=== PATIENT | female | born 1950 | race Caucasian/White ===

== ENCOUNTER 2018-07-29 07:43 | Outpatient (CLI) | payer BC, MEDICARE, OTHER, SELFPAY ==
[2018-07-31 13:48] LABS: Cat Epithelium IgE 3.51 kU/L; Cocklebur IgE <0.35 kU/L; Cockroach IgE <0.35 kU/L; Cottonwood IgE <0.35 kU/L; Dog Dander IgE <0.35 kU/L; Eastern Sycamore IgE <0.35 kU/L; Fusarium moniliforme, IgE <0.35 kU/L (<0.35); Giant Ragweed IgE 0.47 kU/L; House Dust/Greer Lab, IgE <0.35 kU/L; Lamb's Quarter IgE <0.35 kU/L; Penicillium chrysogenum IgE <0.35 kU/L; Red Sorrel IgE <0.35 kU/L; Short Ragweed IgE 0.79 kU/L; Stemphyllium IgE 0.51 kU/L
[2018-07-31 17:01] LABS: Epicoccum purpurascens IgE <0.35 kU/L; Wormwood IgE <0.35 kU/L
[2018-08-04 02:33] LABS: CLASS 0; Cedar Red IgE <0.10 kU/L (<0.35); Rhodotorula IgE <0.35 kU/L (<0.35)
== END 2018-07-29 08:03 ==
PROVIDERS: PCP Family Medicine; Visit Provider Otolaryngology Otolaryngology/Facial Plastic Surgery
DX: J32.9 Chronic sinusitis, unspecified (principal); Z01.82 Encounter for allergy testing
CPT/HCPCS: 36415; 86003

== ENCOUNTER 2019-01-22 07:56 | Emergency (ER) | payer BC, MEDICARE, OTHER, SELFPAY ==
[2019-01-22] VITALS (24 sets, daily range): BP systolic 109–181; BP diastolic 32–104; PULSE 77–86; RESP 14–23; TEMP 36.7; O2SAT 95–100
--- NOTE | 2019-01-22 08:26 | DI.US_ITS ---
SYMPTOM/DIAGNOSIS: RLE PAIN, DYSPNEA, SWELLING DUPLEX VENOUS ULTRASOUND RIGHT LOWER EXTREMITY: The study was carried out according to the usual protocol. The superficial, femoral, popliteal and proximal trifurcation in the superior portion of the leg are well seen. Good compressibility is noted throughout. Flow is demonstrated and flow augmentation was easily elicited with calf compression. SUMMARY: There is no evidence of DVT.
--- NOTE | 2019-01-22 08:26 | DI.RAD_ITS ---
SYMPTOM/DIAGNOSIS: DYSPNEA PA AND LATERAL CHEST: The heart is normal in size. The lungs are clear. The mediastinal structures and pleura appear intact. CONCLUSION: Normal chest.
[2019-01-22] MEDS: Albuterol 2.5 MG/3 ML INH SOLN VIAL UPD (08:42)
[2019-01-22 08:43] LABS: Anion Gap 10.1 mmol/L (3-11); BUN 25 mg/dL (7-18); CO2 27.9 mmol/L (21.0-32.0); CREATININE 1.21 mg/dL (0.55-1.02); Calcium 8.6 mg/dL (8.5-10.1); Chloride 103 mmol/L (98-107); Estimated GFR 44.38 (mL/min/1.73m2); Glucose 134 mg/dL (70-100); Potassium 3.5 mmol/L (3.5-5.1); Sodium 141 mmol/L (136-145)
--- NOTE | 2019-01-22 15:43 | ED.GENADUL_ITS ---
Discharge Plan Disposition Patient Disposition: HOME Condition: Stable Discharge Details Chief Complaint: SOB Clinical Impression: Superficial thrombophlebitis Primary Care Provider: Leroy Case ED Provider: Jim Nichols Home Meds and New Rx's Prescriptions: New ibuprofen 600 mg tablet 600 mg PO TID Qty: 20 RF: 0 No Action pramipexole 1 mg Tablet 1 mg PO BID RF: 0 atorvastatin 20 mg Tablet 20 mg PO DAILY RF: 0 torsemide 20 mg Tablet 20 mg PO DAILY RF: 0 albuterol sulfate 2.5 mg /3 mL (0.083 %) Solution For Nebulization 2.5 mg INHALATION TID PRN PRNRF: 0 aspirin 325 mg Tablet 325 mg PO DAILY RF: 0 rizatriptan 10 mg Tablet 10 mg PO ONCE RF: 0 clonazepam 1 mg Tablet 1 mg PO DAILY PRNRF: 0 venlafaxine 150 mg Capsule,Extended Release 24hr 150 mg PO DAILY RF: 0 amlodipine 2.5 mg Tablet 2.5 mg PO DAILY RF: 0 omeprazole 40 mg Capsule,Delayed Release(Dr/Ec) 40 mg PO BID RF: 0 spironolactone 25 mg Tablet 25 mg PO DAILY RF: 0 ferrous sulfate [Iron (ferrous sulfate)] 325 mg (65 mg iron) Tablet 325 mg PO DAILY RF: 0 metformin 1,000 mg Tablet 1,000 mg PO DAILY RF: 0 nystatin 100,000 unit/gram Cream 1 applic TOPICAL BID RF: 0 nitroglycerin [Nitrostat] 0.4 mg Tablet, Sublingual 0.4 mg SUBLINGUAL Q5-15M PRNRF: 0 mupirocin calcium 2 % Cream 1 applic TOPICAL BID RF: 0 montelukast 10 mg Tablet 10 mg PO DAILY RF: 0 ergocalciferol (vitamin D2) 50,000 unit Capsule 50,000 unit PO QWEEK RF: 0 hydroxychloroquine 200 mg Tablet 400 mg PO DAILY RF: 0 ibuprofen 600 mg Tablet 600 mg PO BID PRNRF: 0 albuterol sulfate [ProAir HFA] 90 mcg/actuation Hfa Aerosol Inhaler 2 puff INHALATION QID PRNRF: 0 Humulin N NPH Insulin KwikPen 100 unit/mL (3 mL) Insulin Pen SUBCUT .SLIDING SCALE RF: 0 Novolog Flexpen U-100 Insulin 100 unit/mL Insulin Pen 14 unit SUBCUT DAILY RF: 0 topiramate [Topamax] 50 mg Tablet 150 mg PO HS RF: 0 chlorhexidine gluconate 0.12 % Mouthwash 15 ml BUCCAL BID RF: 0 Symbicort 160-4.5 mcg/actuation Hfa Aerosol Inhaler 2 puff INHALATION BID RF: 0 Lantus Solostar U-100 Insulin 100 unit/mL (3 mL) Insulin Pen 45 unit SUBCUT DAILY RF: 0 Victoza 3-Mal 0.6 mg/0.1 mL (18 mg/3 mL) Pen Injector 1.8 mg subcut DAILY RF: 0 Nucala 100 mg Recon Soln 100 mg SUBCUT Q4W RF: 0 Discharge Instructions Additional Instructions: 1. Drink plenty of fluids. 2. Continue all medications as prescribed. 3. Acetaminophen 1000mg every 4 hours (up to 5 time a day) and/or ibuprofen 600mg every 6 hours as needed for fever or pain. 4. Warm compresses to sore area frequently. Return to the Emergency Department (ED) if your condition worsens, does not improve as expected, or for ANY other concerns. Specifically, return if you have new or uncontrolled pain, worsening fever, difficulty breathing, vomiting, or are unable to drink fluids. Discharge Data Discharge Date/Time-TO BE ENTERED AT DEPARTURE: 01/22/19 10:45 Medical Decision Making 68-year-old with multiple medical problems including recent right lower extremity ankle and knee pain presents with worsening posterior right knee pain and associated dyspnea. Nonfocal exam except for tenderness of the proximal right calf which reproduces subjective pain. Right lower extremity DVT study positive for superficial thrombophlebitis.. Chest x-ray negative. Discussed findings with patient was discharged home with plan for OTC analgesia and outpatient follow-up. Pt evaluated immediately prior to discharge with improved symptoms, normal vital signs, and tolerating PO. The patient feels appropriate for discharge home. Discussed clinical/diagnostic findings. Discharged with a clear plan for outpatient follow up. Given usual and customary return instructions prior to discharge. Medical Records Medical records reviewed: Yes I reviewed the patient's medical records. Imaging Data Radiologic Study: Attestation: I personally reviewed and interpreted this imaging study as follows: Imaging: Ultrasound (Right DVT is) My impression: No DVT. Posterior superficial thrombophlebitis. Interpreted independently and contemporaneously by myself. Reviewed radiology report. Radiologist's impression: Same Radiologic Study #2: Attestation: I personally reviewed and interpreted this imaging study as follows: Imaging: X-Ray (Chest x-ray) My impression: No acute cardiopulmonary disease. Interpreted independently and contemporaneously by myself. Reviewed radiology report. Radiologist's impression: Same HPI 68-year-old woman with a history of sciatica, SAH, atypical chest pain, estrogens syndrome, and CKD presents with new right posterior leg pain and mild dyspnea. The patient has had chronic right ankle pain and then right knee pain. She was recently evaluated for her ankle pain and was diagnosed with an old fracture. At the time of her recent evaluation she did not have a conference of the evaluation. Since then, her knee pain has been worsening. This is localized in her proximal calf/inferior popliteal fossa. She otherwise denies any significant lower extremity swelling, erythema, or discoloration. Yesterday evening her pain significantly worsened and was associated with some dyspnea. She denies fever/chills, palpitations, chest pain, abdominal pain, change in bowel habits, urinary symptoms. She has no history of VTE. General Date/Time Provider Initiated Documentation: 01/22/19 08:26 . Related Data Home Medications Medication Instructions Recorded Confirmed albuterol sulfate 2.5 mg INHALATION TID PRN PRN 01/22/19 01/22/19 albuterol sulfate [ProAir HFA] 2 puff INHALATION QID PRN 01/22/19 01/22/19 amlodipine 2.5 mg PO DAILY 01/22/19 01/22/19 aspirin 325 mg PO DAILY 01/22/19 01/22/19 atorvastatin 20 mg PO DAILY 01/22/19 01/22/19 budesonide-formoterol [Symbicort] 2 puff INHALATION BID 01/22/19 01/22/19 chlorhexidine gluconate 15 ml BUCCAL BID 01/22/19 01/22/19 clonazepam 1 mg PO DAILY PRN 01/22/19 01/22/19 ergocalciferol (vitamin D2) 50,000 unit PO QWEEK 01/22/19 01/22/19 ferrous sulfate [Iron (ferrous 325 mg PO DAILY 01/22/19 01/22/19 sulfate)] hydroxychloroquine 400 mg PO DAILY 01/22/19 01/22/19 ibuprofen 600 mg PO BID PRN 01/22/19 01/22/19 ibuprofen 600 mg PO TID #20 tab 01/22/19 insulin NPH isoph U-100 human unit SUBCUT .SLIDING SCALE 01/22/19 [Humulin N NPH Insulin KwikPen] insulin aspart U-100 [Novolog 14 unit SUBCUT DAILY 01/22/19 01/22/19 Flexpen U-100 Insulin] insulin glargine [Lantus Solostar 45 unit SUBCUT DAILY 01/22/19 01/22/19 U-100 Insulin] liraglutide [Victoza 3-Mal] 1.8 mg SUBCUT DAILY 01/22/19 01/22/19 mepolizumab [Nucala] 100 mg SUBCUT Q4W 01/22/19 01/22/19 metformin 1,000 mg PO DAILY 01/22/19 01/22/19 montelukast 10 mg PO DAILY 01/22/19 01/22/19 mupirocin calcium 1 applic TOPICAL BID 01/22/19 01/22/19 nitroglycerin [Nitrostat] 0.4 mg SUBLINGUAL Q5-15M PRN 01/22/19 01/22/19 nystatin 1 applic TOPICAL BID 01/22/19 01/22/19 omeprazole 40 mg PO BID 01/22/19 01/22/19 pramipexole 1 mg PO BID 01/22/19 01/22/19 rizatriptan 10 mg PO ONCE 01/22/19 01/22/19 spironolactone 25 mg PO DAILY 01/22/19 01/22/19 topiramate [Topamax] 150 mg PO HS 01/22/19 01/22/19 torsemide 20 mg PO DAILY 01/22/19 01/22/19 venlafaxine 150 mg PO DAILY 01/22/19 01/22/19 Previous Rx's Medication Instructions Recorded ibuprofen 600 mg PO TID #20 tab 01/22/19 Allergies Allergy/AdvReac Type Severity Reaction Status Date / Time hydrocodone [From Lortab] AdvReac Unknown abd Unverified 01/22/19 09:26 pain/addiction zolpidem [From Ambien] AdvReac Unknown amnesia/strange Unverified 01/22/19 09:26 behavior melatonin AdvReac hallucinati Unverified 01/22/19 09:26 ons General Stated Complaint: SOB KAYCE: 2 Review of Systems Review of Systems All systems are reviewed and are unremarkable except as noted in HPI and below: CONSTITUTIONAL: no fevers/chills, no weakness or change in appetite EYES: no change in vision HEENT: no throat pain or difficulty swallowing; no neck pain CARDIOVASCULAR: no chest pain, palpitations, leg swelling, or diaphoresis RESPIRATORY: no cough, wheezing. mild dyspnea, now improving GASTROINTESTINAL: no abdominal pain, melena, nausea/emesis GENITOURINARY: no dysuria, flank pain, MUSCULOSKELETAL: no pack pain, right ankle pain, right knee pain, right proximal calf pain INTEGUMENTARY: no rash, no wounds NEUROLOGIC: no headache, focal weakness, difficulty with speech, numbness PSYCHIATRIC: no confusion, no anxiety HEME: no easy bruising or bleeding ALLERGIC: no urticaria FOR[facility]LY [facility] Medical History Atypical chest pain (Acute) Body mass index greater than 40 (Acute) Cholelithiasis and cholecystitis with obstruction (Acute) Chronic diastolic (congestive) heart failure (Acute) Chronic kidney disease, stage 2 (mild) (Acute) Depressive disorder (Acute) Dizziness (Acute) Dyspnea (Acute) History of subarachnoid hemorrhage (Acute) Hypercholesteremia (Acute) Insomnia (Acute) Intertrigo (Acute) Memory impairment (Acute) Phlebitis of superficial vein of left lower extremity (Acute) Polyp of ascending colon (Acute) Restless leg syndrome (Acute) Right sided sciatica (Acute) Sjogrens syndrome (Acute) Type 2 diabetes mellitus (Acute) Asthma (Chronic) GERD (gastroesophageal reflux disease) (Chronic) Gout (Chronic) Hypertensive disorder (Chronic) Migraine (Chronic) Obstructive sleep apnea (Chronic) Social History Smoking/Tobacco Use Status: Former Tobacco Use Alcohol Intake: never Drug use: Never Substance use type: does not use Do you feel safe at home: Yes Do you feel safe in your relationship?: Yes Exam Narrative Exam Narrative: Nursing note and vital signs have been reviewed and noted. GENERAL: alert, active, no acute distress, well -hydrated, well-nourished HEENT: atraumatic/normocephalic, PERRLA, EOMI, conjunctiva clear, external ears/canals normal, nasal mucosa normal NECK: supple, full range of motion, no mass, normal lymphadenopathy, no thyromegaly CARDIOVASCULAR: RRR, no murmurs, nl pulses, no edema PULMONARY: nl effort, no audible wheezing or stridor, nl breath sounds with no focal deficit. no chest wall tenderness ABDOMEN: soft, non-tender, non-distended, no mass, no organomegaly EXTREMITY: normal muscle tone, all joints with FROM, no deformity; right proximal calf tenderness which reproduces subjective pain. SKIN: no exanthem appreciated NEURO: gross motor exam normal, normal stance and gait PSYCH: alert and oriented, Course Vital Signs Respiratory Rate 17 01/22/19 07:56 Pulse Oximetry 99 01/22/19 07:56 Temperature 98.1 F 01/22/19 10:45 Temperature Source Temporal Artery Scan 01/22/19 10:38 Pulse 78 01/22/19 10:45 Pulse 79 01/22/19 08:47 Respiratory Rate 20 01/22/19 10:45 Respiratory Effort Non-Labored 01/22/19 09:52 Respiratory Depth Normal 01/22/19 09:02 Respiratory Pattern Normal 01/22/19 09:02 Blood Pressure 120/44 L 01/22/19 10:45 Blood Pressure Mean 61 01/22/19 10:16 Blood Pressure Position Supine 01/22/19 08:00 Pulse Oximetry 99 01/22/19 10:45 Oxygen Delivery Method Venti Mask 01/22/19 08:00 Oxygen Flow Rate 0 01/22/19 08:00 Pain Level 7 01/22/19 10:45 Lab/Test Results Lab/Test Results: Laboratory Tests Range/Units 01/22/19 08:20 Sodium (136-145) mmol/L 141 Potassium (3.5-5.1) mmol/L 3.5 Chloride (98-107) mmol/L 103 Carbon Dioxide (21.0-32.0) mmol/L 27.9 Anion Gap (3-11) mmol/L 10.1 BUN (7-18) mg/dL 25 H Creatinine (0.55-1.02) mg/dL 1.21 H Estimated GFR/1.73 m2 (mL/min/1.73m2) 44.38 Glucose (70-100) mg/dL 134 H Calcium (8.5-10.1) mg/dL 8.6
== END 2019-01-22 10:45 | disposition home or self-care (01) ==
PROVIDERS: Emergency Provider Emergency Medicine; PCP Family Medicine
DX: I80.01 Phlebitis and thrombophlebitis of superficial vessels of right lower extremity (principal); R06.00 Dyspnea, unspecified
CPT/HCPCS: 36415; 80048; 94640; 99284; 71046; 93971; J7613

== ENCOUNTER 2023-01-06 08:21 | Outpatient (CLI) | payer MEDICARE, OTHER, SELFPAY ==
--- NOTE | 2023-01-06 08:19 | DI.RAD_ITS ---
Exam(s) XR KNEE LT 3V AP,LAT,GEOVANNA EXAM: XR KNEE LT 3V AP,LAT,GEOVANNA CLINICAL HISTORY: left knee pain. TECHNIQUE: 2D digital imaging was performed. Three views. COMPARISON: CR,DX XR KNEE 3V RT from 02/10/2019 CR XR KNEE RT 3V AP,LAT,GEOVANNA from 01/06/2023 FINDINGS: BONES: No acute fracture is present. No bony destructive lesion is seen. Spurring noted at the fem oral condyles and tibial plateaus. Mild spurring at the patellofemoral joint. JOINTS: The knee is normally aligned. No joint effusion is seen. SOFT TISSUE: Small posterior loose body which may reside within a Boo's cyst. IMPRESSION: Ibde-ol-pcsmjkhb degenerative changes. Posterior soft tissue calcification may lie within a Boo's cyst. DATA REPOSITORY: RADIATION DOSE DELIVERED:
--- NOTE | 2023-01-06 08:19 | DI.RAD_ITS ---
Exam(s) XR KNEE RT 3V AP,LAT,GEOVANNA EXAM: XR KNEE RT 3V AP,LAT,GEOVANNA CLINICAL HISTORY: right knee pain. TECHNIQUE: 2D digital imaging was performed. Three views. COMPARISON: CR,DX XR KNEE 3V RT from 02/10/2019 FINDINGS: BONES: No acute fracture is present. No bony destructive lesion is seen. JOINTS: There is some anterior subluxation of the tibia with respect to the femur which could indicat e an ACL disruption. No joint effusion is seen. Periarticular spurring throughout. Moderate to se parmjit narrowing of the femoral tibial joint spaces. SOFT TISSUE: Normal. IMPRESSION: Tricompartmental degenerative changes. Probable ACL tear. This could be chronic. DATA REPOSITORY: RADIATION DOSE DELIVERED:
== END 2023-01-06 08:22 | disposition home or self-care (01) ==
LOC: DIORS 08:22
PROVIDERS: PCP Family Medicine; Referring Provider Family Medicine; Visit Provider Physician Assistant
DX: M17.11 Unilateral primary osteoarthritis, right knee; M17.12 Unilateral primary osteoarthritis, left knee
CPT/HCPCS: 20610; 73562; 99203; J1040

== ENCOUNTER → 2023-11-24 02:00 | Outpatient (CLI) | payer MEDICARE, OTHER, SELFPAY ==
--- OUTSIDE RECORDS SUMMARY | 2023-11-24 02:03 | XMS_ITS | Continuity of Care Document ---
Author Name Unknown Organization [facility] Address [address] [place] [address] Care Team Providers Care Decorator Consultant Name Role Phone Leroy Case Primary Care Physician [phone] [facility] Date[facility] 07/31/23 - 07/31/23 [facility] [address] [place] [address] Encounter Diagnosis Left shoulder pain(Discharge Diagnosis) - 07/31/23 Discharge Disposition: Home or Self Care Attending Physician: Timi Hinojosa MD Admitting Physician: Timi Hinojosa MD Referring Physician: Timi Hinojosa MD Allergies, Adverse Reactions, Alerts Substance Reaction Severity Status ALMOND Other Moderate Active clindamycin Diarrhoea Severe Active sulfamethoxazole-trimethoprim Nausea Moderate Active zolpidem Unknown Active pilocarpine ophthalmic Unknown Moderate Activ e acetaminophen-hydrocodone Abdominal pain Unknown Active mycophenolate mofetil Unknown Moderate Active melatonin Hallucinations Unknown Active Bactrim Unknown Active Ambien Unknown Active Lortab Unknown Active metFORMIN Unknown Moderate Active Cat Hair Dyspnea Other (See Comments) Severe Active Assessment and Plan Future Appointments Future Scheduled Tests Radiology* MRI Spine Lumbar w/o Contrast 11/13/22 Immunizations Given and Recorded Vaccine Date Status Refusal Reason influenza virus vaccine, live 03/12/21 Recorded influenza virus vaccine, live 07/13/19 Recorded influenza virus vaccine, live 07/10/16 Recorded SARS-CoV-2 (COVID-19) mRNA-1273 vaccine 02/07/21 R ecorded SARS-CoV-2 (COVID-19) mRNA-1273 vaccine 01/15/21 R ecorded SARS-CoV-2 (COVID-19) mRNA-1273 vaccine 12/21/20 R ecorded influenza, unspecified formulation 07/19/20 Record ed influenza, unspecified formulation 1 07/04/19 Wojciech rded influenza, unspecified formulation 07/21/17 Record ed influenza, unspecified formulation 2 08/04/15 Wojciech rded influenza, unspecified formulation 3 08/04/15 Wojciech rded pneumococcal 13-valent conjugate vaccine 12/30/16 Recorded hepatitis B adult vaccine 08/08/16 Recorded hepatitis B adult vaccine 03/06/16 Recorded hepatitis B adult vaccine 01/31/16 Recorded pneumococcal 23-polyvalent vaccine 07/10/16 Record ed zoster vaccine live 12/20/15 Recorded influenza virus vaccine, inactivated 06/28/14 Wojciech rded influenza virus vaccine, inactivated 06/29/13 Wojciech rded influenza virus vaccine, inactivated 10/23/12 Wojciech rded influenza virus vaccine, inactivated 07/16/11 Wojciech rded tetanus/diphth/pertuss (Tdap) adult/adol 01/22/12 Recorded 1Result Comment: Unit: Unknown 2Result Comment: Unit: Unknown 3Result Comment: Unit: Unknown 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: [employer] Medications !-Zofran ODT 4 mg oral tablet, disintegrating 4 mg = 1 tab, Oral, every 6 hr, PRN as needed for nausea/vomiting, # 12 tab, 0 Refill(s), Pharmacy:[facility], 157.4, cm, 02/01/23 10:28:00 EDT, Height/Length Dosing, 95.7, kg, 02/01/23 10:28:00 EDT, Weight Dosing Start Date: 02/01/23 Stop Date: 02/04/23 Status: Ordered acetaminophen 650 mg oral tablet, extended release 1,300 mg = 2 tab, Oral, TID, PRN as needed for pain, not to exceed 6 tablets/da given to her by herrheumatologist., # 100 tab, 1 Refill(s), Pharmacy: [facility], 157.4, cm, 02/01/23 10:28:00 EDT, Height/Length Dosing, 95.7, kg, 02/01/23 10:28:00 EDT, Weight Dosing Start Date: 05/20/23 Status: Ordered albuterol 2.5 mg/3 mL (0.083%) inhalation solution 2.5 mg = 3 mL, NEB, TID, PRN as needed for wheezing, # 810 mL, 4 Refill(s), Pharmacy: [facility], 157, cm, 10/04/22 11:31:00 EST, Height/Length Dosing, 98, kg, 10/04/22 11:31:00 EST, WeightDosing Start Date: 10/09/22 Status: Ordered aspirin 325 mg oral capsule 325 mg = 1 cap, Oral, Daily, # 30 cap, 0 Refill(s) Start Date: 03/14/22 Status: Ordered clonazePAM 0.5 mg oral tablet 0.5 mg = 1 tab, Oral, Daily, PRN other (see comment), Take as needed for 90 days Start Date: 03/21/20 Status: Ordered Compression stockings Compression stockings, 3 pair 20-30MMHGDX:(I80.9), Supply, See instructions, # 1 EA, 0 Refill(s) Start Date: 04/23/22 Status: Ordered cyclobenzaprine 10 mg oral tablet 10 mg = 1 tab, Oral, TID, PRN as needed for spasm, X 10 days, # 30 tab, 0 Refill(s), 08/04/23 1:02:00 PM CDT, Pharmacy: [facility], 154.94, cm, 07/25/23 13:45:00 EDT, Height/Length Dosing, 89.63, kg, 07/25/23 13:45:00 EDT, Weight Dosing Start Date: 07/25/23 Stop Date: 08/04/23 Status: Ordered dexamethasone 0.5 mg/5 mL oral liquid 1 mg = 10 mL, Oral, TID, # 300 mL, 0 Refill(s), Pharmacy: [facility], 157.4, cm, 02/01/2310:28:00 EDT, Height/Length Dosing, 95.7, kg, 02/01/23 10:28:00 EDT, Weight Dosing Start Date: 04/17/23 Stop Date: 04/27/23 Status: Ordered Diabetic shoes Diabetic shoes, NEEDS NEW PAIR OF DIABETIC SHOES DX: E11.9, Supply, See instructions, # 1 EA, 0 Refill(s) Start Date: 04/23/22 Status: Ordered Diflucan 100 mg oral tablet See Instructions, 1 tab one time dose, # 1 tab, 0 Refill(s), Pharmacy: [facility], 157.4,cm, 02/01/23 10:28:00 EDT, Height/Length Dosing, 95.7, kg, 02/01/23 10:28:00 EDT, Weight Dosing Start Date: 05/26/23 Status: Ordered ferrous sulfate 325 mg (65 mg elemental iron) oral delayed release tablet 325 mg = 1 tab, Oral, Daily, # 90 tab, 3 Refill(s), Pharmacy: [facility], 158, cm, 05/31/23 11:18:00 EDT, Height/Length Dosing, 88.45, kg, 05/31/23 11:18:00 EDT, Weight Dosing Start Date: 06/02/23 Status: Ordered FreeStyle Lite Test Strips FreeStyle Lite Test Strips, Use one strip three times daily, Supply, See instructions, # 300 EA, 4 Refill(s), Pharmacy: [facility] Start Date: 02/05/23 Status: Ordered furosemide 40 mg oral tablet 90 tab, 0 Refill(s) Start Date: 11/24/22 Status: Ordered gabapentin 100 mg oral capsule 100 mg = 1 cap, Oral, TID, # 270 cap, 3 Refill(s), Pharmacy: [facility], 158, cm, 05/31/23 11:18:00 EDT, Height/Length Dosing, 88.45, kg, 05/31/23 11:18:00 EDT, Weight Dosing Start Date: 06/02/23 Status: Ordered ibuprofen 800 mg oral tablet 800 mg = 1 tab, Oral, every 8 hr, PRN as needed for pain, # 30 tab, 0 Refill(s), Pharmacy: [facility], 157.4, cm, 02/01/23 10:28:00 EDT, Height/Length Dosing, 95.7, kg, 02/01/23 10:28:00 EDT, Weight Dosing Start Date: 05/20/23 Status: Ordered insulin pen needles 32G 4 mm 1 Refill(s), USE 5 PEN NEEDLES DIRECTED DAILY, Supply, See instructions, # 1 EA, 0 Refill(s) Start Date: 11/24/22 Status: Ordered ipratropium-albuterol CFC free 20 mcg-100 mcg/inh inhalation aerosol 1 puffs, Inhale, QID, # 4 g, 0 Refill(s), Pharmacy: [facility], 157.4, cm, 02/01/23 10:28:00 EDT, Height/Length Dosing, 95.7, kg, 02/01/23 10:28:00 EDT, Weight Dosing Start Date: 02/05/23 Status: Ordered Lantus Solostar Pen 100 units/mL subcutaneous solution See Instructions, inject 30 units daily, 0 Refill(s) Start Date: 03/14/22 Status: Ordered lidocaine 2% mucous membrane solution 0.1 g 5 mL, Topical, TID(AC), 2 Refill(s), make magic mouthwash mix with generic benadryl liquid 100ml and maalox 1:1:1 15ml of mixed solution swish and spit 4x/day, # 100 mL, 2 Refill(s), Pharmacy: [facility], 157.4, cm, 02/01/23 10:28:00 EDT, Height/Length Dosing, 95.7, kg, 02/01/23 10:28:00 EDT, Weight Dosing Start Date: 04/17/23 Status: Ordered lisinopril 20 mg oral tablet 20 mg = 1 tab, Oral, Daily, # 30 tab, 4 Refill(s), Pharmacy: [facility], 157, cm, 10/04/22 11:31:00 EST, Height/Length Dosing, 98, kg, 10/04/22 11:31:00 EST, Weight Dosing Start Date: 11/27/22 Status: Ordered Neupro 2 mg/24 hr transdermal film, extended release 1 patches, Topical, Daily, # 90 patches, 3 Refill(s), Pharmacy: [facility], 158,cm, 05/31/23 11:18:00 EDT, Height/Length Dosing, 88.45, kg, 05/31/23 11:18:00 EDT, Weight Dosing Start Date: 07/16/23 Status: Ordered oxyCODONE 5 mg oral tablet 5 mg = 1 tab, Oral, every 4 hr, PRN as needed for pain, # 12 tab, 0 Refill(s), 07/25/24 1:03:00 PM CDT, Pharmacy: [facility], 154.94, cm, 07/25/23 13:45:00 EDT, Height/Length Dosing, 89.63,kg, 07/25/23 13:45:00 EDT, Weight Dosing Start Date: 07/25/23 Stop Date: 07/25/24 Status: Ordered Plaquenil 200 mg oral tablet 2 Refill(s), TAKE 1 TABLET TWICE A DAY (EYE EXAM AT LEAST ONCE A YEAR WHILE ON THIS MEDICATION), 0 Refill(s) Start Date: 11/24/22 Status: Ordered ProAir HFA 90 mcg/inh inhalation aerosol 1 puffs, Inhale, every 6 hr, PRN as needed for wheezing, # 8.5 g, 6 Refill(s), Pharmacy: [facility], 157.4, cm, 02/01/23 10:28:00 EDT, Height/Length Dosing, 95.7, kg, 02/01/23 10:28:00 EDT,Weight Dosing Start Date: 02/03/23 Status: Ordered ProAir RespiClick 90 mcg/inh inhalation powder 1 EA, INHALE ONE PUFF BY MOUTH EVERY 6 HOURS NEEDED, 0 Refill(s) Start Date: 11/24/22 Status: Ordered rizatriptan 10 mg oral tablet See Instructions, TAKE ONE TABLET BY MOUTH EVERY DAY NEEDED FOR MIGRAINE. MAY REPEAT DOSE EVERY 2 HOURS FOR A MAXIMUM OF 3 TABLETS IN 24 HOURS, # 12 tab, 3 Refill(s), Pharmacy: [facility], 157.4, cm, 02/01/23 10:28:00 EDT, Height/Length Dosing, 95.7, kg, 02/01/23 10:28:00 EDT, Weight Dosing Start Date: 04/14/23 Status: Ordered torsemide 20 mg oral tablet 0 Refill(s) Start Date: 03/13/22 Status: Ordered triamcinolone 0.1% topical cream 1 yonas, Topical, BID, Apply a thin layer to the affected area(s) Start Date: 10/11/21 Status: Ordered Trulicity Pen 3 mg/0.5 mL subcutaneous solution 3 mg = 0.5 mL, Subcutaneous, every week, rotate injection sites, # 2 mL, 0 Refill(s) Start Date: 02/01/23 Status: Ordered venlafaxine 150 mg oral capsule, extended release See Instructions, TAKE ONE CAPSULE BY MOUTH EVERY DAY, # 90 cap, 3 Refill(s), Pharmacy: [facility], 158, cm, 05/31/23 11:18:00 EDT, Height/Length Dosing, 88.45, kg, 05/31/23 11:18:00 EDT, Weight Dosing Start Date: 06/03/23 Status: Ordered venlafaxine 75 mg oral capsule, extended release 75 mg = 1 cap, Oral, Daily, # 90 cap, 3 Refill(s), Pharmacy: [facility], 158, cm, 05/31/23 11:18:00 EDT, Height/Length Dosing, 88.45, kg, 05/31/23 11:18:00 EDT, Weight Dosing Start Date: 06/02/23 Status: Ordered Vitamin B12 5000 mcg oral tablet, disintegrating 5,000 mcg = 1 tab, Oral, Daily, # 100 tab, 0 Refill(s) Start Date: 05/20/23 Status: Ordered Vitamin D3 50,000 intl units oral capsule 1,250 mcg = 1 cap, Oral, every week, # 12 cap, 0 Refill(s) Start Date: 05/20/23 Status: Ordered Problem List Condition Confirmation Course Effective Dates Status Health Status Informant Acute maxillary sinusitis Confirmed Active Asthma Confirmed Active Atypical chest pain Confirmed Active Back pain with right-sided sciatica Confirmed Active Bipolar affective disorder, current episode depression Confirmed Active Blood blister Confirmed Active Body mass index 30+ - obesity Confirmed Active Body mass index 40+ - severely obese Confirmed Active Vaginal yeast infection Confirmed Active Cholelithiasis without obstruction Confirmed Active Chronic diastolic heart failure Confirmed Active Chronic fatigue syndrome Confirmed Active Chronic kidney disease stage 3 Confirmed 12/05/17 Active Chronic kidney disease stage 3A 1 Confirmed 12/07/20 Active Chronic pain syndrome Confirmed 09/18/18 Active Chronic rhinitis Confirmed 08/25/18 Active Chronic sinusitis Confirmed Active Cough Confirmed Active Depressed bipolar I disorder Confirmed Active Depressive disorder Confirmed Active Dizziness Confirmed Active Dysphagia Confirmed Active Dyspnea Confirmed Active Fall at home Confirmed Active Fibromyalgia Confirmed 12/05/17 Active Gastroesophageal reflux disease Confirmed Active Gout Confirmed Active Heart failure with normal ejection fraction Confirmed 12/05/17 Active History of subarachnoid hemorrhage Confirmed Active Hypercholesterolemia Confirmed Active Hyperparathyroidism 2 Confirmed 12/07/20 Active Hypertensive disorder Confirmed Active Sacroiliitis Confirmed Active Intertrigo Confirmed Active Keratoconjunctivitis sicca, 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 Confirmed 08/25/18 Active Mechanical complication of breast prosthesis Confirmed 05/09/15 Active Memory impairment Confirmed Active Migraine without aura Confirmed Active Muscle pain Confirmed Active Obstructive sleep apnea syndrome Confirmed Active Otalgia of left ear Confirmed Active Otalgia of right ear Confirmed Active Left shoulder pain Confirmed Active Parasomnia Confirmed Active Perforation of nasal septum Confirmed 08/25/18 Active Periodic limb movements of sleep Confirmed Active Persistent insomnia Confirmed Active Phlebitis of superficial veins of lower extremity Confirmed Active Polyp of colon Confirmed Active Restless legs Confirmed Active Right Side Sciatica Confirmed Active Low iron Confirmed Active Sj??gren's syndrome Confirmed Active Sore gums Confirmed Active Superficial thrombophlebitis Confirmed Active Trochanteric bursitis of left hip Confirmed 08/01/21 Active Type 2 diabetes mellitus without complication Confirmed Active Type II diabetes mellitus uncontrolled Confirmed 09/04/21 Active Viral upper respiratory tract infection Confirmed Active Vitamin D deficiency Confirmed 11/10/17 Active 1Per Nephro note 2Per Nephro norte Procedures Procedure Date Related Diagnosis Body Site Status Endoscopy 1 01/09/21 Completed Colonoscopy 2 12/12/20 Completed Removal impacted cerumen (se parate procedure), one or both ears 05/24/19 Com pleted ORIF - lateral malleolus of fibula with internal fixation 3 10/19/18 Complet ed Nasal endoscopy, diagnostic, unilateral or bilateral (separate procedure) 03/16/18 Completed Laryngoscopy, flexible fiber optic; diagnostic 02/23/18 Completed Removal procedure of implant body 06/12/15 Completed Cataract Surgery 09/12/14 Complete d Cataract Surgery 08/22/14 Complete d Gastric bypass 10/12/02 Completed Abdominoplasty 10/12/99 Completed Breast reduction 10/12/99 Complete d Biopsy of breast 10/12/93 Complete d section 4 05/13/85 Comple lily Tonsillectomy Completed 1normal appearing gastric pouch and gastrojejunal anastomosis 2colon polyps, mild diverticulosis. 1st one done in [place] years ago pt reports polyps removed 3L distal fibula 4Patient reported metal in left foot and metal in back Social History Social History Type Response Tobacco Former tobacco user Tobacco Use:. Sex Female Patient Care team information Care Team Personnel Name: Leroy Case MD Position: Physician Member Role: Informed Provider Address: Address: [address] Care Team Related Persons Name: JERED STUBBS Name: VICKIE BHATT III Address: Home [address] [place], [place] [id number]
--- OUTSIDE RECORDS SUMMARY | 2023-11-24 02:03 | XMS_ITS | Continuity of Care Document ---
Author Name Unknown Organization [facility] Address [address] [place] [address] Care Team Providers Care Nurse Clinician Name Role Phone Leroy Case Primary Care Physician [facility] Date[facility]/23 - 06/17/[address] [address] Discharge Disposition: Home or Self Care Attending Physician: Fadumo Campbell CASH REGISTER REPAIRER Admitting Physician: Fadumo Campbell CASH REGISTER REPAIRER Referring Physician: Fadumo Campbell CASH REGISTER REPAIRER Allergies, Adverse Reactions, Alerts Substance Reaction Severity Status ALMOND Other Moderate Active sulfamethoxazole-trimethoprim Nausea Moderate Active pilocarpine ophthalmic Unknown Moderate Activ e acetaminophen-hydrocodone Abdominal pain Unknown Active mycophenolate mofetil Unknown Moderate Active clindamycin Diarrhoea Severe Active zolpidem Unknown Active melatonin Hallucinations Unknown Active Ambien Unknown Active Cat Hair Dyspnea Other (See Comments) Severe Active metFORMIN Unknown Moderate Active Bactrim Unknown Active Lortab Unknown Active Assessment and Plan Future Appointments Future [...] Comment: Unit: Unknown 3Result Comment: Unit: Unknown 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[employer] Medications !-Zofran ODT 4 mg oral tablet, disintegrating 4 mg = 1 tab, Oral, every 6 hr, PRN as needed for nausea/vomiting, # 12 tab, 0 Refill(s), Pharmacy:[facility], 157.4, cm, 02/01/23 10:28:00 EDT, Height/Length Dosing, 95.7, kg, 02/01/23 10:28:00 EDT, Weight Dosing Start Date: 02/01/23 Stop Date: 02/04/23 Status: Ordered acetaminophen 650 mg oral tablet, extended release 1,300 mg = 2 tab, Oral, TID, PRN as needed for pain, not to exceed 6 tablets/da given to her by herrheumatologist., # 100 tab, 1 Refill(s), Pharmacy: [facility], 157.4, cm, 02/01/23 10:28:00 EDT, Height/Length Dosing, 95.7, kg, 02/01/23 10:28:00 EDT, Weight Dosing Start Date: 05/20/23 Status: Ordered albuterol 2.5 mg/3 mL (0.083%) inhalation solution 2.5 mg = 3 mL, NEB, TID, PRN as needed for wheezing, # 810 mL, 4 Refill(s), Pharmacy: [facility], 157, cm, 10/04/22 11:31:00 EST, Height/Length [...] 0 Refill(s) Start Date: 04/23/22 Status: Ordered dexamethasone 0.5 mg/5 mL oral liquid 1 mg = 10 mL, Oral, TID, # 300 mL, 0 Refill(s), Pharmacy: [facility], 157.4, cm, 02/01/2310:28:00 EDT, Height/Length Dosing, [...] dose, # 1 tab, 0 Refill(s), Pharmacy: [facility], 157.4,cm, 02/01/23 10:28:00 EDT, Height/Length Dosing, 95.7, kg, 02/01/23 10:28:00 EDT, Weight Dosing Start Date: 05/26/23 Status: Ordered ferrous sulfate 325 mg (65 mg elemental iron) oral delayed release tablet 325 mg = 1 tab, Oral, Daily, # 90 tab, 3 Refill(s), Pharmacy: [facility], 158, cm, 05/31/23 11:18:00 EDT, Height/Length Dosing, 88.45, kg, 05/31/23 11:18:00 EDT, Weight Dosing Start Date: 06/02/23 Status: Ordered FreeStyle Lite Test Strips FreeStyle Lite Test Strips, Use one strip three times daily, Supply, See instructions, # 300 EA, 4 Refill(s), Pharmacy: [facility] Start Date: 02/05/23 Status: Ordered furosemide 40 mg oral tablet 90 tab, 0 Refill(s) Start Date: 11/24/22 Status: Ordered gabapentin 100 mg oral capsule 100 mg = 1 cap, Oral, TID, # 270 cap, 3 Refill(s), Pharmacy: [facility], 158, cm, 05/31/23 11:18:00 EDT, Height/Length Dosing, 88.45, kg, 05/31/23 11:18:00 EDT, Weight Dosing Start Date: 06/02/23 Status: Ordered ibuprofen 800 mg oral tablet 800 mg = 1 tab, Oral, every 8 hr, PRN as needed for pain, # 30 tab, 0 Refill(s), Pharmacy: [facility], 157.4, cm, 02/01/23 10:28:00 EDT, Height/Length [...] QID, # 4 g, 0 Refill(s), Pharmacy: [facility], 157.4, cm, 02/01/23 10:28:00 EDT, Height/Length [...] 4x/day, # 100 mL, 2 Refill(s), Pharmacy: [facility], 157.4, cm, 02/01/23 10:28:00 EDT, Height/Length Dosing, 95.7, kg, 02/01/23 10:28:00 EDT, Weight Dosing Start Date: 04/17/23 Status: Ordered lisinopril 20 mg oral tablet 20 mg = 1 tab, Oral, Daily, # 30 tab, 4 Refill(s), Pharmacy: [facility], 157, cm, 10/04/22 11:31:00 EST, Height/Length Dosing, 98, kg, 10/04/22 11:31:00 EST, Weight Dosing Start Date: 11/27/22 Status: Ordered Plaquenil 200 mg oral tablet 2 Refill(s), TAKE 1 TABLET TWICE A DAY (EYE EXAM AT LEAST ONCE A YEAR WHILE ON THIS MEDICATION), 0 Refill(s) Start Date: 11/24/22 Status: Ordered ProAir HFA 90 mcg/inh inhalation aerosol 1 puffs, Inhale, every 6 hr, PRN as needed for wheezing, # 8.5 g, 6 Refill(s), Pharmacy: [facility], 157.4, cm, 02/01/23 10:28:00 EDT, Height/Length [...] HOURS, # 12 tab, 3 Refill(s), Pharmacy: [facility], 157.4, cm, 02/01/23 10:28:00 EDT, Height/Length Dosing, 95.7, kg, 02/01/23 10:28:00 EDT, Weight Dosing Start Date: 04/14/23 Status: Ordered rOPINIRole 1 mg oral tablet See Instructions, take 2 PO two hours before bedtime, # 180 tab, 3 Refill(s), Pharmacy: [facility], 157.4, cm, 02/01/23 10:28:00 EDT, Height/Length Dosing, 95.7, kg, 02/01/23 10:28:00 EDT, Weight Dosing Start Date: 04/24/23 Status: Ordered torsemide 20 mg oral tablet [...] DAY, # 90 cap, 3 Refill(s), Pharmacy: [facility], 158, cm, 05/31/23 11:18:00 EDT, Height/Length Dosing, 88.45, kg, 05/31/23 11:18:00 EDT, Weight Dosing Start Date: 06/03/23 Status: Ordered venlafaxine 75 mg oral capsule, extended release 75 mg = 1 cap, Oral, Daily, # 90 cap, 3 Refill(s), Pharmacy: [facility], 158, cm, 05/31/23 11:18:00 EDT, [...] polyps, mild diverticulosis. 1st one done in [place] years ago pt reports polyps removed 3L distal fibula 4Patient reported metal in left foot and metal in back Social History Social History Type Response Tobacco Former tobacco user Tobacco Use:. Sex Female Patient Care team information Care Team Personnel Name: Leroy Case MD Position: Physician Member Role: Informed Provider Address: Address: [place] [address]- Care Team Related Persons Name: JERED STUBBS Name: VICKIE BHATT III Address: Home [address] [place] [address], [id number]
--- OUTSIDE RECORDS SUMMARY | 2023-11-24 02:03 | XMS_ITS | Continuity of Care Document ---
Author Name Unknown Organization [facility] f or Sleep Disorders Address [address] [place] [address] Care Team Providers Care Php Engineer Name Role Phone Leroy Case Primary Care Physician [phone] Encounter [facility] [id number] Date(s): 01/27/23 - 01/27/23 [facility] [address] [place] [address] Encounter Diagnosis Obstructive sleep apnea syndrome(Discharge Diagnosis) - 01/23/23 Restless legs(Discharge Diagnosis) - 01/23/23 Obstructive sleep apnea (adult) (pediatric)(Final) - Restless legs syndrome(Final) - Discharge Disposition: Home or Self Care Attending Physician: 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 Allergies, Adverse Reactions, Alerts Substance Reaction Severity [...] Radiology* MRI Spine Lumbar w/o Contrast 11/13/22 Functional Status 01/27/23 Other exposure to Infectious Disease Non e Immunizations Given and Recorded Vaccine Date Status [...] Comment: Unit: Unknown 3Result Comment: 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[employer]: [employer] Medications albuterol 2.5 mg/3 mL (0.083%) inhalation solution 2.5 mg = 3 mL, NEB, TID, PRN as needed for wheezing, # 810 mL, 4 Refill(s), Pharmacy: [facility], 157, cm, 10/04/22 11:31:00 EST, Height/Length Dosing, 98, kg, 10/04/22 11:31:00 EST, WeightDosing Start Date: 10/09/22 Status: Ordered aspirin 325 mg oral capsule 325 mg = 1 cap, Oral, Daily, # 30 cap, 0 Refill(s) Start Date: 03/14/22 Status: Ordered cefdinir 300 mg oral capsule 300 mg = 1 cap, Oral, every 12 hr, # 20 cap, 0 Refill(s), Pharmacy: [facility], 157, cm, 01/01/23 4:18:00 EDT, Height/Length Dosing, 98.8, kg, 01/01/23 4:18:00 EDT, Weight Dosing Start Date: 01/07/23 Stop Date: 01/17/23 Status: Ordered clonazePAM 0.5 mg oral tablet 0.5 mg = 1 tab, Oral, Daily, PRN other (see comment), Take as needed for 90 days Start Date: 03/21/20 Status: Ordered Compression stockings Compression stockings, 3 pair 20-30MMHGDX:(I80.9), Supply, See instructions, # 1 EA, 0 Refill(s) Start Date: 04/23/22 Status: Ordered Diabetic shoes Diabetic shoes, NEEDS NEW PAIR OF DIABETIC SHOES DX: E11.9, Supply, See instructions, # 1 EA, 0 Refill(s) Start Date: 04/23/22 Status: Ordered Diflucan 150 mg oral tablet 150 mg = 1 tab, Oral, Once, Repeat dose in 72 hours if no improvement., # 2 tab, 0 Refill(s), Pharmacy: [facility], 157, cm, 01/01/23 4:18:00 EDT, Height/Length Dosing, 98.8, kg, 01/01/23 4:18:00 EDT, Weight Dosing Start Date: 01/13/23 Status: Ordered Diflucan 150 mg oral tablet 150 mg = 1 tab, Oral, Once, repeat dose in 72 hours, # 2 tab, 0 Refill(s), Pharmacy: [facility], 157, cm, 10/04/22 11:31:00 EST, Height/Length Dosing, 98, kg, 10/04/22 11:31:00 EST, Weight Dosing Start Date: 12/31/22 Status: Ordered furosemide 40 mg oral tablet 90 tab, 0 Refill(s) Start Date: 11/24/22 Status: Ordered gabapentin 100 mg oral capsule 100 mg = 1 cap, Oral, TID, # 90 cap, 3 Refill(s), Pharmacy: [facility], 157, cm, 10/04/2211:31:00 EST, Height/Length Dosing, 98, kg, 10/04/22 11:31:00 EST, Weight Dosing Start Date: 12/13/22 Status: Ordered HumaLOG 100 units/mL injectable solution See Instructions, per patient sliding scale, 0 Refill(s) Start Date: 03/14/22 Status: Ordered hydroxychloroquine 200 mg oral tablet Oral, 200 Unknown, 1 Refill(s), Take 200 mg by mouth Twice daily., 0 Refill(s) Start Date: 11/24/22 Status: Ordered hyoscyamine 0.125 mg sublingual tablet 120 EA, PLACE ONE TABLET UNDER THE TONGUE EVERY 4 HOURS NEEDED FOR CRAMPING BEFORE MEALS AND BEDTIME, 0 Refill(s) Start Date: 11/24/22 Status: Ordered ibuprofen 800 mg oral tablet 800 mg = 1 tab, Oral, every 8 hr, PRN as needed for pain, # 30 tab, 0 Refill(s), Pharmacy: [facility], 157.48, cm, 05/13/22 10:43:00 EDT, Height/Length Dosing, 99.79, kg, 05/13/22 10:43:00 EDT, Weight Dosing Start Date: 07/10/22 Status: Ordered insulin lispro 1 Refill(s), Humalog Kwikpen. Inject 14-26 Units into the skin 3 times daily with meals, 0 Refill(s) Start Date: 11/24/22 Status: Ordered insulin lispro 100 units/mL injectable solution 4 Refill(s), Humalog Kwikpen. Inject 14-26 Units into the skin 3 times daily with meals, 0 Refill(s) Start Date: 11/24/22 Status: Ordered insulin pen needles 32G 4 mm 1 Refill(s), USE 5 PEN NEEDLES DIRECTED DAILY, Supply, See instructions, # 1 EA, 0 Refill(s) Start Date: 11/24/22 Status: Ordered Lantus Solostar Pen 100 units/mL subcutaneous solution See Instructions, inject 30 units daily, 0 Refill(s) Start Date: 03/14/22 Status: Ordered lidocaine 2% mucous membrane solution 2 Refill(s), make magic mouthwash mix with generic benadryl liquid 100ml and maalox 1:1:1 15ml of mixed solution swish and spit 4x/day, 0 Refill(s) Start Date: 11/24/22 Status: Ordered lisinopril 20 mg oral tablet 20 mg = 1 tab, Oral, Daily, # 30 tab, 4 Refill(s), Pharmacy: [facility], 157, cm, 10/04/22 11:31:00 EST, Height/Length Dosing, 98, kg, 10/04/22 11:31:00 EST, Weight Dosing Start Date: 11/27/22 Status: Ordered meclizine 25 mg oral tablet Oral, BID, 25 Unknown, 1 Refill(s), Take 25 mg by mouth 3 times daily as needed., 0 Refill(s) Start Date: 11/24/22 Status: Ordered memantine 5 mg oral tablet 1 Refill(s), Waiting until procedure is done, 0 Refill(s) Start Date: 11/24/22 Status: Ordered Nucala Prefilled Autoinjector 100 mg/mL subcutaneous solution 1 unknown unit, 0 Refill(s) Start Date: 11/24/22 Status: Ordered omeprazole 40 mg oral delayed release capsule Oral, 40 Unknown, 1 Refill(s), Take 40 mg by mouth 2 times daily., 0 Refill(s) Start Date: 11/24/22 Status: Ordered omeprazole 40 mg oral delayed release capsule 40 mg = 1 cap, Oral, BID, 0 Refill(s) Start Date: 03/14/22 Status: Ordered Plaquenil 200 mg oral tablet 2 Refill(s), TAKE 1 TABLET TWICE A DAY (EYE EXAM AT LEAST ONCE A YEAR WHILE ON THIS MEDICATION), 0 Refill(s) Start Date: 11/24/22 Status: Ordered PLAQUENIL 200 MG TABLET PLAQUENIL 200 MG TABLET, 0 Refill(s) Start Date: 03/13/22 Status: Ordered ProAir HFA 90 mcg/inh inhalation aerosol 1 puffs, Inhale, every 6 hr, PRN as needed for wheezing, # 8.5 g, 1 Refill(s), Pharmacy: [facility], 157.48, cm, 05/13/22 10:43:00 EDT, Height/Length Dosing, 99.79, kg, 05/13/22 10:43:00 EDT, Weight Dosing Start Date: 10/03/22 Status: Ordered ProAir RespiClick 90 mcg/inh inhalation powder 1 EA, INHALE ONE PUFF BY MOUTH EVERY 6 HOURS NEEDED, 0 Refill(s) Start Date: 11/24/22 Status: Ordered rizatriptan 10 mg oral tablet 10 mg = 1 tab, Oral, Daily, PRN as needed for migraine headache, may repeat dose every 2 hours up to a maximum of 30 mg in 24 hours, # 12 tab, 1 Refill(s), Pharmacy: [facility], 157, cm, 10/04/22 11:31:00 EST, Height/Length Dosing, 98, kg, 1... Start Date: 12/17/22 Status: Ordered rOPINIRole 1 mg oral tablet See Instructions, take 1 PO two hours before bedtime, # 90 tab, 1 Refill(s), Pharmacy: [facility], 157, cm, 10/04/22 11:31:00 EST, Height/Length Dosing, 98, kg, 10/04/22 11:31:00 EST, Weight Dosing Start Date: 12/30/22 Status: Ordered rosuvastatin 10 mg oral tablet 10 mg = 1 tab, Oral, Daily Start Date: 05/27/20 Status: Ordered SEROquel 25 mg oral tablet 25 mg = 1 tab, Oral, Daily, at bedtime, # 30 tab, 0 Refill(s) Start Date: 03/14/22 Status: Ordered torsemide 20 mg oral tablet 0 Refill(s) Start Date: 03/13/22 Status: Ordered traMADol 50 mg oral tablet 50 mg = 1 tab, Oral, every 12 hr, PRN as needed for pain, # 28 tab, 0 Refill(s), Pharmacy: [facility] Start Date: 03/14/22 Status: Ordered traZODone 50 mg oral tablet 30 EA, TAKE ONE TABLET BY MOUTH AT BEDTIME, 0 Refill(s) Start Date: 11/24/22 Status: Ordered triamcinolone 0.1% topical cream 1 yonas, Topical, BID, Apply a thin layer to the affected area(s) Start Date: 10/11/21 Status: Ordered valACYclovir 1 g oral tablet 1 g = 1 tab, Oral, TID, Take for 7 days Start Date: 10/11/21 Status: Ordered venlafaxine 150 mg oral tablet, extended release 150 mg = 1 tab, Oral, Daily, # 30 tab, 0 Refill(s), Pharmacy: [facility], 157, cm, 10/04/22 11:31:00 EST, Height/Length Dosing, 98, kg, 10/04/22 11:31:00 EST, Weight Dosing Start Date: 11/14/22 Status: Ordered venlafaxine 75 mg oral capsule, extended release 75 mg = 1 cap, Oral, Daily, # 30 cap, 0 Refill(s), Pharmacy: [facility], 157, cm, 10/04/22 11:31:00 EST, Height/Length Dosing, 98, kg, 10/04/22 11:31:00 EST, Weight Dosing Start Date: 11/14/22 Status: Ordered Problem List Condition Confirmation Course Effective Dates Status Health Status Informant Asthma Confirmed Active Atypical chest pain Confirmed Active Back pain with right-sided sciatica Confirmed Active Bipolar affective disorder, current episode depression Confirmed Active Body mass index 30+ - obesity Confirmed Active Body mass index 40+ - severely obese Confirmed Active Cholelithiasis without obstruction Confirmed Active Chronic diastolic heart failure Confirmed Active Chronic kidney disease stage 3 Confirmed 12/05/17 Active Chronic kidney disease stage 3A 1 Confirmed 12/07/20 Active Chronic pain syndrome Confirmed 09/18/18 Active Chronic rhinitis Confirmed 08/25/18 Active Depressive disorder Confirmed Active Dizziness Confirmed Active Dyspnea Confirmed Active Fibromyalgia Confirmed 12/05/17 Active Gastroesophageal [...] Active Obstructive sleep apnea syndrome Confirmed Active Parasomnia Confirmed Active Perforation of nasal septum Confirmed 08/25/18 Active Periodic limb movements of sleep Confirmed Active Persistent insomnia Confirmed Active Phlebitis of superficial veins of lower extremity Confirmed Active Polyp of colon Confirmed Active Restless legs Confirmed Active Right Side Sciatica Confirmed Active Sj??gren's syndrome Confirmed Active Superficial thrombophlebitis Confirmed Active Trochanteric bursitis of left hip Confirmed 08/01/21 Active Type 2 diabetes mellitus without complication Confirmed Active Type II diabetes mellitus uncontrolled Confirmed 09/04/21 Active Vitamin D deficiency Confirmed 11/10/17 Active 1Per Nephro note 2Per Nephro norte Procedures Procedure Date Related Diagnosis Body Site Status Endoscopy 1 01/09/21 Completed Colonoscopy 2 12/12/20 Completed ORIF - lateral malleolus of fibula with internal fixation 3 10/19/18 Complet ed Removal procedure of implant body 06/12/15 Completed Cataract Surgery 09/12/14 Complete d Cataract Surgery 08/22/14 Complete d Gastric bypass 10/12/02 Completed Abdominoplasty 10/12/99 Completed Breast reduction 10/12/99 Complete d Biopsy of breast 10/12/93 Complete d section 4 05/13/85 Comple lily Tonsillectomy Completed 1normal appearing gastric pouch and gastrojejunal anastomosis 2colon polyps, mild diverticulosis. 1st one done in [place] years ago pt reports polyps removed 3L distal fibula 4Patient reported metal in left foot and metal in back Vital Signs Most recent to oldest [Reference Range]: 1 Peripheral Pulse Rate [60-100 bpm] 88 bp m (01/27/23 2:51 PM) Blood Pressure [90-140/60-90 mmHg] 144/5 7mmHg *HI* (01/27/23 2:51 PM) Weight 96.03 kg (01/27/23 2:51 PM) Weight Measured (lbs) 211.71 lb (01/27/23 2:51 PM) Height 158 cm (01/27/23 2:51 PM) Height/Length Measured (inches) 62.2 inc h (01/27/23 2:51 PM) BSA Measured 2.05 m2 (01/27/23 2:51 PM) Body Mass Index 38.47 kg/m2 (01/27/23 2:51 PM) Social History Social History Type Response Tobacco Former tobacco user Tobacco Use:. 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 ?? Aide was last seen by me on 12/30/2022 and was seen by Dr. Mcclain on 01/18/2020. She has a medical history to include asthma, back pain, obesity, Bipolar, depression, CKD, chronic rhinitis, gout, HTN, GERD, heart failure, migraine, hyperparathyroidism, Sjogren's, and insomnia. ?? Diagnostic Polysomnogram on 05/31/2013 (251 lbs, bmi 47) was repeat diagnostic test to re-qualify for CPAP. Mild Obstructive Sleep Apnea ad Severe Periodic Limb Movement Disorder. AHI 12.2/hr. REM AHI21.5/hr. Frandy SpO2 87% and Mean SpO2 95%. Arousal index 35.3/hr. PLM index 41.3/hr. PLM Arousal index 35.7/hr. No significant arrhythmias, Tunde-Wong Respirations, parasomnias, or abnormalities on limited EEG montage. ?? Titration PSG on 05/29/19 (wt 277 lbs/bmi 51.5) tested cpap 5 to 8cmH2O. Optimal pressure was not found as patient did not enter REM sleep on night of sleep study. However, CPAP 7 cm/H2O resolved significant apneas, hypopneas, snoring and desaturations including during Supine NREM and Right Lateral NREM sleep. Adequate oxygenation was maintained on CPAP 6cmH2O and above. Resmed Airfit F20, Resmed Airfit N20, Nasal Mask in Size Small, showed acceptable leak profile. No evidence of Periodic Limb Movement Disorder seen during this study Low sleep efficiency at 75% and increased sleep fragmentation with arousal index 20 per hour. Patient reports frequent pain disrupting her sleep, which is similar to what she experiences at home. Recommend apap 6 to 12cm. PLM 2.3/hr. PLMa 1.5/hr. ?? Titration??was completed on??12/15/22 (BMI 39.51) . Sleep efficiency was 54%, AHI CPAP titrated from 5 to 9 cm, CPAP 6 cm was effective but there were mild desaturations even at final pressure of 9 cm, sp02 frandy 82.6%, 37 minutes were spent at a saturation <88%, arousal index 45/hr, PLMi 82.6/hr, PLM arousal index 37.2/hr, EKG showed NSR. No parasomnias and no seizure activity noted. ?? Last visit she was using CPAP 5-14 cm with great compliance and reduction in AHI. Last visit I prescribed ropinirole 1 mg for severe PLMS. ?? Aide says she tried taking a full tablet at 7 pm with a bedtime of 9-10 pm and she felt groggy inthe am so she cut it in half and it worked really great for a while and then she wasn't sleeping well again so she increased it to the full tablet and she is sleeping better with it. She takes it around 7-8 pm, she falls asleep in 15-20 minutes (much faster than it took in the past which was two h ours), she gets up 6 am and is waking feeling better rested QAM and she is no longer having to takenaps after work. ??She says her notes the legs move significantly less since she has been taking the ropinirole. ?? She says she had an ear infection this past month and saw ENT and was on medication so she was not able to use the CPAP as consistently the past month. ?? COMPLIANCE DATA REVIEWED WITH PATIENT: Dates 12/28/22-01/26/23, Used 24/30 nights, average use 5??hrs and 38??minutes. Mean pressure 5.7 cm, 90th percentile pressure 7.8 cm, time in large air leak 2minutes, AHI 2.8/hr. Physical Exam Vitals & Measurements HR:??88??(Peripheral)?? BP:??144/57?? SpO2:??98%?? HT:??158??cm?? WT:??96.03??kg?? BMI:??38.47?? BSA:??2.05?? GENERAL: answers questions appropriately, well groomed, obese. HEAD: normocephalic and atraumatic. EYES: non icteric LUNGS: rhonchi at bases. Good air movement throughout. CARDIO: RRR without murmur, gallop or thrill. NEURO: alert and oriented, normal gait. PYSCH: normal mood and affect. CUTANEOUS: no overt lesions or rashes.? Assessment/Plan 1.??Obstructive sleep apnea syndrome??G47.33 ANAT diagnosed in 2012 with an AHI of 12.2/hr. She has been treated with CPAP 5- 14 cm. She has greatcompliance and reduction in AHI. She is to continue with this. She is advised to keep up with the routine maintenance of the machine and to clean/replace parts as needed. I will see her back in one year. She is asked to call our office for any sleep related questions or concerns. Ordered: Follow-Up Appointment Request LATRICE, *Est. 01/28/24 +/- 28 days, Future Order, In [facility] ?? 2.??Restless legs??G25.81 Her reported she shakes in sleep. Recent titration without any parasomnias or seizure activity. There was no REM sleep but the history did not sound consistent with RBD. She did have severePLMS with a PLMi 82.6/hr and PLM arousal index 37.2/hr. She tried gabapentin and had very poor tolerance to this. She is already taking clonazepam 0.5 mg QHS, she tried trazodone and this didn't hep.She was previously on tramadol for pain but has not been on this for about six months. She does nothave any caffeine or chocolate but she takes venlafaxine which may cause or worsen PLMS. She already??takes ferrous sulfate 325 mg with vit C daily. Last visit a prescription for ropinirole 1 mg was sent in. She has done remarkably well with the ropinirole 1 mg and is sleeping quicker and better and feeling better rested?? and no longer having side effects. She will continue with this and I will see her back in one year. I provided greater than 30 minutes in the care of this patient, more than half the time was spent in [id number]-[id number] counseling. Ordered: Follow-Up Appointment Request LATRICE, *Est. 01/28/24 +/- 28 days, Future Order, In [facility], [facility] ?? Problem List/Past Medical History Ongoing Asthma Atypical chest pain Back pain with right-sided sciatica Bipolar affective disorder, current episode depression Body mass index 30+ - obesity Body mass index 40+ - severely obese Cholelithiasis without obstruction Chronic diastolic heart failure Chronic kidney disease stage 3 Chronic kidney disease stage 3A Chronic pain syndrome Chronic rhinitis Depressive disorder Dizziness Dyspnea Fibromyalgia Gastroesophageal reflux disease Gout Heart failure with normal ejection fraction History of subarachnoid hemorrhage Hypercholesterolemia Hyperparathyroidism Hypertensive disorder Intertrigo Keratoconjunctivitis sicca, 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 complication of breast prosthesis Memory impairment Migraine without aura Muscle pain Obstructive sleep apnea syndrome Parasomnia Perforation of nasal septum Periodic limb movements of sleep Persistent insomnia Phlebitis of superficial veins of lower extremity Polyp of colon Restless legs Right Side Sciatica Sacroiliitis Sj??gren's syndrome Superficial thrombophlebitis Trochanteric bursitis of left hip Type 2 diabetes mellitus without complication Type II diabetes mellitus uncontrolled Vitamin D deficiency Historical Chronic kidney disease stage 2 Procedure/Surgical History ???Endoscopy (01/10/2021)???Colonoscopy (12/13/2020)???ORIF - lateral malleolus of fibula with internal fixation (10/20/2018)???Removal procedure of implant body (06/13/2015)???Cataract Surgery (09/13/2014)???Cataract Surgery (08/23/2014)???Gastric bypass (10/13/2002)???Abdominoplasty (10/13/1999)?? ?Breast reduction (10/13/1999)???Biopsy of breast (10/13/1993)??? section (05/14/1985)???Tonsillectomy Medications albuterol 2.5 mg/3 mL (0.083%) inhalation solution, 2.5 mg= 3 mL, NEB, TID, PRN, 4 refills aspirin 325 mg oral capsule, 325 mg= 1 cap, Oral, Daily cefdinir 300 mg oral capsule, 300 mg= 1 cap, Oral, every 12 hr clonazePAM 0.5 mg oral tablet, 0.5 mg= 1 tab, Oral, Daily, PRN Compression stockings, See instructions Diabetic shoes, See instructions Diflucan 150 mg oral tablet, 150 mg= 1 tab, Oral, Once Diflucan 150 mg oral tablet, 150 mg= 1 tab, Oral, Once furosemide 40 mg oral tablet gabapentin 100 mg oral capsule, 100 mg= 1 cap, Oral, TID, 3 refills HumaLOG 100 units/mL injectable solution, See Instructions hydroxychloroquine 200 mg oral tablet, Oral hyoscyamine 0.125 mg sublingual tablet ibuprofen 800 mg oral tablet, 800 mg= 1 tab, Oral, every 8 hr, PRN insulin lispro insulin lispro 100 units/mL injectable solution insulin pen needles 32G 4 mm, See instructions Lantus Solostar Pen 100 units/mL subcutaneous solution, See Instructions lidocaine 2% mucous membrane solution lisinopril 20 mg oral tablet, 20 mg= 1 tab, Oral, Daily, 4 refills meclizine 25 mg oral tablet, Oral, BID memantine 5 mg oral tablet Nucala Prefilled Autoinjector 100 mg/mL subcutaneous solution omeprazole 40 mg oral delayed release capsule, Oral omeprazole 40 mg oral delayed release capsule, 40 mg= 1 cap, Oral, BID Plaquenil 200 mg oral tablet PLAQUENIL 200 MG TABLET ProAir HFA 90 mcg/inh inhalation aerosol, 1 puffs, Inhale, every 6 hr, PRN, 1 refills ProAir RespiClick 90 mcg/inh inhalation powder rizatriptan 10 mg oral tablet, 10 mg= 1 tab, Oral, Daily, PRN, 1 refills rOPINIRole 1 mg oral tablet, See Instructions, 1 refills rosuvastatin 10 mg oral tablet, 10 mg= 1 tab, Oral, Daily SEROquel 25 mg oral tablet, 25 mg= 1 tab, Oral, Daily torsemide 20 mg oral tablet traMADol 50 mg oral tablet, 50 mg= 1 tab, Oral, every 12 hr, PRN traZODone 50 mg oral tablet triamcinolone 0.1% topical cream, 1 yonas, Topical, BID valACYclovir 1 g oral tablet, 1 g= 1 tab, Oral, TID venlafaxine 150 mg oral tablet, extended release, 150 mg= 1 tab, Oral, Daily venlafaxine 75 mg oral capsule, extended release, 75 mg= 1 cap, Oral, Daily Allergies Cat Hair??(Dyspnea, Other (See Comments)) clindamycin??(Diarrhoea) ALMOND??(Other) metFORMIN??(Unknown) mycophenolate mofetil??(Unknown) pilocarpine ophthalmic??(Unknown) sulfamethoxazole-trimethoprim??(Nausea) Ambien Bactrim Lortab acetaminophen-hydrocodone??(Abdominal pain) melatonin??(Hallucinations) zolpidem Social History Electronic Cigarette/Vaping Electronic Cigarette Use: Never. Tobacco Former tobacco user Tobacco Use:. Family History Chronic obstructive lung disease: Father. Heart disease: Father. Myocardial infarction: Brother. Obesity: Father. Parkinsonism: Father. Immunizations Vaccine Date Status influenza virus vaccine, live 03/12/2021 Recorded SARS-CoV-2 (COVID-19) mRNA-1273 vaccine 02/07/2021 Recorded SARS-CoV-2 (COVID-19) mRNA-1273 vaccine 01/15/2021 Recorded SARS-CoV-2 (COVID-19) mRNA-1273 vaccine 12/21/2020 Recorded influenza, unspecified formulation 07/19/2020 Recorded influenza virus vaccine, live 07/13/2019 Recorded influenza, unspecified formulation 07/04/2019 Recorded Comments : Unit: Unknown influenza, unspecified formulation 07/21/2017 Recorded pneumococcal 13-valent conjugate vaccine 12/30/2016 Recorded hepatitis B adult vaccine 08/08/2016 Recorded pneumococcal 23-polyvalent vaccine 07/10/2016 Recorded influenza virus vaccine, live 07/10/2016 Recorded hepatitis B adult vaccine 03/06/2016 Recorded hepatitis B adult vaccine 01/31/2016 Recorded zoster vaccine live 12/20/2015 Recorded influenza, unspecified formulation 08/04/2015 Recorded Comments : Unit: Unknown influenza, unspecified formulation 08/04/2015 Recorded Comments : 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[employer]: [employer] influenza virus vaccine, inactivated 06/28/2014 Recorded influenza virus vaccine, inactivated 06/29/2013 Recorded influenza virus vaccine, inactivated 10/23/2012 Recorded tetanus/diphth/pertuss (Tdap) adult/adol 01/22/2012 Recorded influenza virus vaccine, inactivated 07/16/2011 Recorded Electronically Signed on 01/27/23 03:05 PM 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 NP Patient Care team information Care Team Personnel Name: Leroy Case MD Position: Physician Member Role: Informed Provider Address: Address: [id number] [place] [address] Care Team Related Persons Name: JERED STUBBS Address: Home Name: VICKIE BHATT III Address: Home [address] [place] [phone]
--- OUTSIDE RECORDS SUMMARY | 2023-11-24 02:03 | XMS_ITS | Continuity of Care Document ---
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 Name Role Phone Leroy Case Primary Care Physician [facility] Date(s[facility] 10/04/22 - 10/04/22 [facility] [address] [place] [address] Encounter Diagnosis Cellulitis, face(Discharge Diagnosis) - 10/04/22 Viral upper respiratory infection(Discharge Diagnosis) - 10/04/22 Discharge Disposition: Home or Self Care Attending Physician: Cruz Ellis MD Admitting Physician: Cruz Ellis MD Allergies, Adverse Reactions, Alerts Substance Reaction Severity Status ALMOND Other Moderate Active sulfamethoxazole-trimethoprim Nausea Moderate Active acetaminophen-hydrocodone Abdominal pain Unknown Active clindamycin Diarrhoea Severe Active zolpidem Unknown Active melatonin Hallucinations Unknown Active Ambien Unknown Active Lortab Unknown Active Bactrim Unknown Active Assessment and Plan Future Appointments Functional Status 10/04/22 Family Member Travel History No recent t rogelioel Recent Travel History No recent travel Other exposure to Infectious Disease Non e [...] formulation 07/19/20 Record ed influenza, unspecified formulation 07/21/17 Record ed pneumococcal 13-valent conjugate vaccine 12/30/16 Recorded hepatitis [...] Wojciech rded tetanus/diphth/pertuss (Tdap) adult/adol 01/22/12 Recorded Medications !-ferrous gluconate 324 mg (37.5 mg elemental iron) oral tablet 324 mg = 1 tab, Oral, Daily, # 100 tab, 0 Refill(s) Start Date: 03/14/22 Status: Ordered amoxicillin-clavulanate 875 mg-125 mg oral tablet 1 tab, Oral, every 12 hr, # 20 tab, 0 Refill(s), Pharmacy: [id number], 157.48, cm, 05/13/22 10:43:00 EDT, Height/Length Dosing, 99.79, kg, 05/13/22 10:43:00 EDT, Weight Dosing Start Date: 09/04/22 Stop Date: 09/14/22 Status: Ordered aspirin 325 mg oral capsule 325 mg = 1 cap, Oral, Daily, # 30 cap, 0 Refill(s) Start Date: 03/14/22 Status: Ordered azaTHIOprine 50 mg oral tablet 0 Refill(s) Start Date: 03/13/22 Status: Ordered benzonatate 200 mg oral capsule 200 mg = 1 cap, Oral, TID, PRN as needed for cough, # 30 cap, 0 Refill(s), Pharmacy: [facility], 157, cm, 10/04/22 11:31:00 EST, Height/Length Dosing, 98, kg, 10/04/22 11:31:00 EST, Weight Dosing Start Date: 10/04/22 Status: Ordered cephalexin 500 mg oral capsule 500 mg = 1 cap, Oral, QID, # 28 cap, 0 Refill(s), Pharmacy: [facility], 157, cm, 10/04/2211:31:00 EST, Height/Length Dosing, 98, kg, 10/04/22 11:31:00 EST, Weight Dosing Start Date: 10/04/22 Stop Date: 10/11/22 Status: Ordered clonazePAM 0.5 mg oral tablet [...] 0 Refill(s) Start Date: 04/23/22 Status: Ordered fluconazole 150 mg oral tablet 150 mg = 1 tab, Oral, Once, # 1 tab, 0 Refill(s) Start Date: 03/13/22 Status: Ordered furosemide 40 mg oral tablet 40 mg = 1 tab, Oral, Daily, # 90 tab, 4 Refill(s), Pharmacy: [facility] Start Date: 03/21/22 Status: Ordered gabapentin 100 mg oral capsule 100 mg = 1 cap, Oral, TID, TAKE ONE CAPSULE BY MOUTH THREE TIMES A DAY, # 90 cap, 3 Refill(s), Pharmacy: [facility], 157.48, cm, 05/13/22 10:43:00 EDT, Height/Length Dosing, 99.79, kg, 05/13/22 10:43:00 EDT, Weight Dosing Start Date: 05/27/22 Status: Ordered gabapentin 100 mg oral capsule 100 mg = 1 cap, Oral, TID, # 90 cap, 4 Refill(s), Pharmacy: [facility], 157.48, cm, 05/13/22 10:43:00 EDT, Height/Length Dosing, 99.79, kg, 05/13/22 10:43:00 EDT, Weight Dosing Start Date: 05/29/22 Status: Ordered HumaLOG 100 units/mL injectable solution See Instructions, per patient sliding scale, 0 Refill(s) Start Date: 03/14/22 Status: Ordered hyoscyamine 0.125 mg sublingual tablet 0 Refill(s) Start Date: 03/13/22 Status: Ordered ibuprofen 800 mg oral tablet 800 mg = 1 tab, Oral, every 8 hr, PRN as needed for pain, # 30 tab, 0 Refill(s), Pharmacy: [facility], 157.48, cm, 05/13/22 10:43:00 EDT, Height/Length Dosing, 99.79, kg, 05/13/22 10:43:00 EDT, Weight Dosing Start Date: 07/10/22 Status: Ordered Lantus Solostar Pen 100 units/mL subcutaneous solution See Instructions, inject 30 units daily, 0 Refill(s) Start Date: 03/14/22 Status: Ordered mycophenolate mofetil 500 mg oral tablet 0 Refill(s) Start Date: 03/13/22 Status: Ordered Nucala Prefilled Autoinjector 100 mg/mL subcutaneous solution 0 Refill(s) Start Date: 03/13/22 Status: Ordered omeprazole 40 mg oral delayed release capsule 40 mg = 1 cap, Oral, BID, 0 Refill(s) Start Date: 03/14/22 Status: Ordered Paxlovid 150 mg-100 mg (300 mg-100 mg Dose) oral tablet 2 tab, Oral, BID, RENAL DOSING (30-60 ml/min). Take one 150 mg nirmatrelvir tablet with one 100 mg ritonavir tablet at the same time as indicated on the blister cards. Provide Fact Sheet for Patients/Caregivers, # 20 tab, 0 Refill(s), Pharmacy: [facility]. Start Date: 09/26/22 Stop Date: 10/01/22 Status: Ordered PLAQUENIL 200 MG TABLET PLAQUENIL 200 MG TABLET, 0 Refill(s) Start Date: 03/13/22 Status: Ordered predniSONE 5 mg oral tablet Tapered dose Start Date: 05/18/21 Status: Ordered ProAir HFA 90 mcg/inh inhalation aerosol 1 puffs, Inhale, every 6 hr, PRN as needed for wheezing, # 8.5 g, 1 Refill(s), Pharmacy: [facility], 157.48, cm, 05/13/22 10:43:00 EDT, Height/Length Dosing, 99.79, kg, 05/13/22 10:43:00 EDT, Weight Dosing Start Date: 10/03/22 Status: Ordered rizatriptan 10 mg oral tablet 10 mg = 1 tab, Oral, Daily, PRN as needed for migraine headache, may repeat dose every 2 hours up to a maximum of 30 mg in 24 hours, # 12 tab, 1 Refill(s), Pharmacy: [facility] Start Date: 04/26/22 Status: Ordered rosuvastatin 10 mg oral tablet [...] pain, # 28 tab, 0 Refill(s), Pharmacy: [facility] Start Date: 03/14/22 Status: Ordered triamcinolone 0.1% topical cream 1 yonas, Topical, BID, Apply a thin layer to the affected area(s) Start Date: 10/11/21 Status: Ordered Trulicity Pen 1.5 mg/0.5 mL subcutaneous solution 0 Refill(s) Start Date: 03/13/22 Status: Ordered valACYclovir 1 g oral tablet 1 g = 1 tab, Oral, TID, Take for 7 days Start Date: 10/11/21 Status: Ordered venlafaxine 225 mg oral tablet, extended release 225 mg = 1 tab, Oral, Daily, # 90 tab, 4 Refill(s), Pharmacy: [facility] Start Date: 03/21/22 Stop Date: 06/14/23 Status: Ordered Problem List Condition Confirmation Course [...] failure Confirmed Active Chronic kidney disease stage 3A 1 Confirmed 12/07/20 Active Depressive disorder Confirmed Active Dizziness Confirmed Active Dyspnea Confirmed Active Gastroesophageal reflux disease Confirmed Active Gout Confirmed Active History of subarachnoid hemorrhage Confirmed Active Hypercholesterolemia Confirmed Active Hyperparathyroidism 2 Confirmed 12/07/20 Active Hypertensive disorder Confirmed Active Intertrigo Confirmed Active Memory impairment Confirmed Active Migraine without aura Confirmed Active Muscle pain Confirmed Active Obstructive sleep apnea syndrome Confirmed Active Persistent insomnia Confirmed Active Phlebitis of superficial veins of lower extremity Confirmed Active Polyp of colon Confirmed Active Restless legs Confirmed Active Right Side Sciatica Confirmed Active Sj??gren's syndrome Confirmed Active Superficial thrombophlebitis Confirmed Active Type 2 diabetes mellitus without complication Confirmed Active 1Per Nephro note 2Per Nephro norte [...] polyps, mild diverticulosis. 1st one done in [place] years ago pt reports polyps removed 3L distal fibula 4Patient reported metal in left foot and metal in back Vital Signs Most recent to oldest [Reference Range]: 1 Temperature Temporal Artery [36-38 Deg C ] 36.8 Deg C (10/04/22 11:13 AM) Peripheral Pulse Rate [60-100 bpm] 82 bp m (10/04/22 11:13 AM) Respiratory Rate [12-24 br/min] 16 br/mi n (10/04/22 11:13 AM) Blood Pressure [90-140/60-90 mmHg] 179/8 5mmHg *HI* (10/04/22 11:13 AM) Weight Dosing 98.00 kg (10/04/22 11:31 AM) Weight Estimated 98.00 kg (10/04/22 11:13 AM) Height/Length Dosing 157.000 cm (10/04/22 11:31 AM) Height/Length Estimated 157.000 cm (10/04/22 11:13 AM) Social History Social History Type Response Tobacco Former tobacco user Tobacco Use:. Sex Female Hospital Discharge Instructions Patient Education 10/04/2022 12:05:12 Cellulitis, Adult Cellulitis, Adult Cellulitis is a skin infection. The infected area is usually warm, red, swollen, and tender. This condition occurs most often in the arms and lower legs. The infection can travel to the muscles, blood, and underlying tissue and become serious. It is very important to get treated for this condition. What are the causes? Cellulitis is caused by bacteria. The bacteria enter through a break in the skin, such as a cut, burn, insect bite, open sore, or crack. What increases the risk? This condition is more likely to occur in people who: ??? Have a weak body defense system (immune system). ??? Have open wounds on the skin, such as cuts, pollard, bites, and scrapes. Bacteria can enter the body through these open wounds. ??? Are older than 60 years of age. ??? Have diabetes. ??? Have a type of long-lasting (chronic) liver disease (cirrhosis) or kidney disease. ??? Are obese. ??? Have a skin condition such as: ??? Itchy rash (eczema). ??? Slow movement of blood in the veins (venous stasis). ??? Fluid buildup below the skin (edema). ??? Have had radiation therapy. ??? Use IV drugs. What are the signs or symptoms? Symptoms of this condition include: ??? Redness, streaking, or spotting on the skin. ??? Swollen area of the skin. ??? Tenderness or pain when an area of the skin is touched. ??? Warm skin. ??? A fever. ??? Chills. ??? Blisters. How is this diagnosed? This condition is diagnosed based on a medical history and physical exam. You may also have tests, including: ??? Blood tests. ??? Imaging tests. How is this treated? Treatment for this condition may include: ??? Medicines, such as antibiotic medicines or medicines to treat allergies (antihistamines). ??? Supportive care, such as rest and application of cold or warm cloths (compresses) to the skin. ??? Hospital care, if the condition is severe. The infection usually starts to get better within 1???2 days of treatment. Follow these instructions at home: Medicines ??? Take [id number]-csunzgn and prescription medicines only as told by your health care provider. ??? If you were prescribed an antibiotic medicine, take it as told by your health care provider. Donot stop taking the antibiotic even if you start to feel better. General instructions ??? Drink enough fluid to keep your urine pale yellow. ??? Do not touch or rub the infected area. ??? Raise (elevate) the infected area above the level of your heart while you are sitting or lying down. ??? Apply warm or cold compresses to the affected area as told by your health care provider. ??? Keep all follow-up visits as told by your health care provider. This is important. These visitslet your health care provider make sure a more serious infection is not developing. Contact a health care provider if: ??? You have a fever. ??? Your symptoms do not begin to improve within 1???2 days of starting treatment. ??? Your bone or joint underneath the infected area becomes painful after the skin has healed. ??? Your infection returns in the same area or another area. ??? You notice a swollen bump in the infected area. ??? You develop new symptoms. ??? You have a general ill feeling (malaise) with muscle aches and pains. Get help right away if: ??? Your symptoms get worse. ??? You feel very sleepy. ??? You develop vomiting or diarrhea that persists. ??? You notice red streaks coming from the infected area. ??? Your red area gets larger or turns dark in color. These symptoms may represent a serious problem that is an emergency. Do not wait to see if the symptoms will go away. Get medical help right away. Call your local emergency services (911 in the [place] Do not drive yourself to the hospital. Summary ??? Cellulitis is a skin infection. This condition occurs most often in the arms and lower legs. ??? Treatment for this condition may include medicines, such as antibiotic medicines or antihistamines. ??? Take axth-olo-cttnlfp and prescription medicines only as told by your health care provider. If you were prescribed an antibiotic medicine, do not stop taking the antibiotic even if you start to feel better. ??? Contact a health care provider if your symptoms do not begin to improve within 1???2 days of starting treatment or your symptoms get worse. ??? Keep all follow-up visits as told by your health care provider. This is important. These visitslet your health care provider make sure that a more serious infection is not developing. This information is not intended to replace advice given to you by your health care provider. Make sure you discuss any questions you have with your health care provider. Document Revised: 10/09/2020 Document Reviewed: 02/18/2019 Elsevier Patient Education ?? 2021 [employer] Follow Up Care 10/04/2022 11:13:33 With:Leroy Case MD Address: [facility] [place] [id number]- When:1 month Physician Emergency department Note * Jhonatan Paris MD: PERFORM Event Display: ED Note Physician Authored Date: [id number] AARON BHATT :1950 Age:72 years Sex:Female Visit Date:10/04/2022 Primary Care Physician: Leroy Case MD Basic Information Time Seen: Jhonatan Paris MD / 10/04/2022 11:33 Chief Complaint Pt positive for COVID two weeks ago, tested negative Friday. ?? Now has a productive cough with green phlegm. History Of Present Illness: 72-year-old female??past medical history asthma, bipolar, heart failure, hyper??parathyroidism, hypertension, Sjogren's, diabetes presents with??productive cough. 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 Has had a cough for the whole time but recently has become more productive. ??She also has some right-sided facial??lower mandibular swelling and pain that started within the last couple days gradually worsening. ??No sore throat,??no vomiting, no headaches??chest pain shortness of breath or any other symptoms. Review of Systems: Constitutional:?No??fevers,?No??chills,?No??sweats Eye:?No??recent visual problems ENT:?No??ear pain,?No??nasal congestion,?No??sore throat Respiratory:?No??shortness of breath,?Positive for??cough Cardiovascular:?No??Chest pain,?No??palpitations,?No??syncope Gastrointestinal:?Nonausea,?No??vomiting,?No??diarrhea Genitourinary:?No??hematuria Yeyo/Lymph:?No??bruising tendency,?No??swollen lymph glands Endocrine:?No??excessive thirst,??No??excessive hunger Musculoskeletal:??No??back pain,??No??neck pain,??No??joint pain,??No??muscle pain,??No??decreased range of motion Integumentary:?No??rash,?No??pruritus,?No??abrasions Neurologic: Alert & oriented X 4 Psychiatric:?No??anxiety,?No??depression Physical Exam Vitals & Measurements T:??36.8?C ??(Temporal Artery)?? HR:??82??(Peripheral)?? RR:??16?? BP:??179/85?? SpO2:??98%?? HT:??157.000??cm?? WT:??98.00??kg??(Estimated)?? O2 Therapy:??Room air?? General: Alert and oriented, well nourished,?No??acute distress Eye: PERRL, EOMI,?Normal??conjunctiva HENT: There is an area of erythema and focal tenderness along the right angle of the mandible, she does not have any significant pain when clenching her jaw, there is no mastoid tenderness or erythema, no external??ear findings or pain, posterior oropharynx unremarkable. ??No acute respiratory distress,??minimal wheezing??bilaterally Neck: Supple, non-tender,?No??carotid bruits,?No??JVD,?No??lymphadenopathy Lungs: Clear to auscultation and percussion,?Non-labored?? respiration Heart:?Normal?? rate,?Regular??rhythm,?No??murmur,?No??gallop,?No??edema Abdomen: Soft, non-tender, non-distended,?Normal?? bowel sounds,?No??masses Musculoskeletal:?Normal?? range of motion and strength,?No??tenderness,?No??swelling Skin: Skin is warm, dry and pink,?No??rashes,?No??lesions Neurologic: Awake, alert and oriented X4, CN II-XII intact Psychiatric: Cooperative, appropriate mood and affect Medical Decision Makin-year-old female presents with??productive cough in the setting of COVID which occurred over the last 1 to 2 weeks.?? 36.8, 179/85, 82, 16, 98%.?? Patient??in no acute respiratory distress. ??She has focal erythema and tenderness to the right angle of the mandible, along with some??submandibular lymphadenopathy. ??Posterior oropharynx unremarkable. ??Range of motion of the neck is normal without significant pain.?? Chest x-ray does not show focal pneumonia. ??Patient??does have clinical evidence of what looks like the beginning of cellulitis on the right angle of the mandible, she was placed on??Keflex.?? Given her vitals and normal chest x-ray,??doubt acute bacterial pneumonia in the setting of recent COVID, symptoms are likely a progression of her viral condition although she was given return precautions regarding bacterial pneumonia.?? Discharged in stable condition with return precautions ED and primary follow-up. Procedure No Qualifying Data Assessment/Plan 1.??Cellulitis, face??L03.211 Ordered: benzonatate 200 mg oral capsule, 200 mg = 1 cap, Oral, TID, PRN as needed for cough, # 30 cap, 0 Refill(s), Pharmacy: [id number], 157, cm, 10/04/22 11:31:00 EST, Height/Length Dosing, 98, kg, 10/04/22 11:31:00 EST, Weight Dosing cephalexin 500 mg oral capsule, 500 mg = 1 cap, Oral, QID, # 28 cap, 0 Refill(s), Pharmacy: [id number], 157, cm, 10/04/22 11:31:00 EST, Height/Length Dosing, 98, kg, 10/04/22 11:31:00 EST, Weight Dosing Discharge Patient, 10/04/22 13:04:00 EST, Home Independently, Constant Indicator ?? 2.??Viral upper respiratory infection??J06.9 ?? Patient Education Cellulitis, Adult Follow Up With When Contact Information Leroy Case MD Within 1 month [place] [id number]- Additional Instructions: Medication Reconciliation New Prescription benzonatate (benzonatate 200 mg oral capsule)1 Capsules Oral (given by mouth) 3 times a day as needed as needed for cough. Refills: 0. ?? cephalexin (cephalexin 500 mg oral capsule)1 Capsules Oral (given by mouth) 4 times a day for 7 Days. Refills: 0. ?? Unchanged albuterol (ProAir HFA 90 mcg/inh inhalation aerosol)1 Puffs Inhale (breathe in) every 6 hours as needed as needed for wheezing. Refills: 1. ?? amoxicillin-clavulanate (amoxicillin-clavulanate 875 mg-125 mg oral tablet)1 tab Oral (given by mouth) every 12 hours for 10 Days. Refills: 0. ?? aspirin (aspirin 325 mg oral capsule)1 Capsules Oral (given by mouth) every day. ?? azaTHIOprine (azaTHIOprine 50 mg oral tablet) ?? clonazePAM (clonazePAM 0.5 mg oral tablet)1 tab Oral (given by mouth) every day as needed other (see comment). Take as needed for 90 days. ?? dulaglutide (Trulicity Pen 1.5 mg/0.5 mL subcutaneous solution) ?? Durable Medical Equipment for Prescription (Compression stockings)3 pair 20- 30MMHGDX:(I80.9). Refills: 0. ?? Durable Medical Equipment for Prescription (Diabetic shoes)NEEDS NEW PAIR OF DIABETIC SHOES DX: E11.9. Refills: 0. ?? ferrous gluconate (!-ferrous gluconate 324 mg (37.5 mg elemental iron) oral tablet)1 tab Oral (given by mouth) every day. ?? fluconazole (fluconazole 150 mg oral tablet)1 tab Oral (given by mouth) once. ?? furosemide (furosemide 40 mg oral tablet)1 tab Oral (given by mouth) every day. Refills: 4. ?? gabapentin (gabapentin 100 mg oral capsule)1 Capsules Oral (given by mouth) 3 times a day. Refills:4. ?? gabapentin (gabapentin 100 mg oral capsule)1 Capsules Oral (given by mouth) 3 times a day. TAKE ONECAPSULE BY MOUTH THREE TIMES A DAY. Refills: 3. ?? hyoscyamine (hyoscyamine 0.125 mg sublingual tablet) ?? ibuprofen (ibuprofen 800 mg oral tablet)1 tab Oral (given by mouth) every 8 hours as needed as needed for pain. Refills: 0. ?? insulin glargine (Lantus Solostar Pen 100 units/mL subcutaneous solution)inject 30 units daily. ?? insulin lispro (HumaLOG 100 units/mL injectable solution)per patient sliding scale. ?? mepolizumab (Nucala Prefilled Autoinjector 100 mg/mL subcutaneous solution) ?? mycophenolate mofetil (mycophenolate mofetil 500 mg oral tablet) ?? nirmatrelvir-ritonavir (Paxlovid 150 mg-100 mg (300 mg-100 mg Dose) oral tablet)2 tab Oral (given by mouth) 2 times a day for 5 Days. RENAL DOSING (30-60 ml/min). Take one 150 mg nirmatrelvir tablet with one 100 mg ritonavir tablet at the same time as indicated on the blister cards. Provide Fact Sheet for Patients/Caregivers. Refills: 0. ?? omeprazole (omeprazole 40 mg oral delayed release capsule)1 Capsules Oral (given by mouth) 2 times a day. ?? Other Prescription (PLAQUENIL 200 MG TABLET) ?? predniSONE (predniSONE 5 mg oral tablet)Tapered dose. ?? QUEtiapine (SEROquel 25 mg oral tablet)1 tab Oral (given by mouth) every day. at bedtime. ?? rizatriptan (rizatriptan 10 mg oral tablet)1 tab Oral (given by mouth) every day as needed as needed for migraine headache. may repeat dose every 2 hours up to a maximum of 30 mg in 24 hours. Refills: 1. ?? rosuvastatin (rosuvastatin 10 mg oral tablet)1 tab Oral (given by mouth) every day. ?? torsemide (torsemide 20 mg oral tablet) ?? traMADol (traMADol 50 mg oral tablet)1 tab Oral (given by mouth) every 12 hours as needed as neededfor pain. Refills: 0. ?? triamcinolone topical (triamcinolone 0.1% topical cream)1 Application Topical (on the skin) 2 timesa day. Apply a thin layer to the affected area(s). ?? valACYclovir (valACYclovir 1 g oral tablet)1 tab Oral (given by mouth) 3 times a day. Take for 7 days. ?? venlafaxine (venlafaxine 225 mg oral tablet, extended release)1 tab Oral (given by mouth) every dayfor 90 Days. Refills: 4. Problem List/Past Medical History Ongoing Asthma Atypical chest pain Back pain with right-sided sciatica Bipolar affective disorder, current episode depression Body mass index 30+ - obesity Body mass index 40+ - severely obese Cholelithiasis without obstruction Chronic diastolic heart failure Chronic kidney disease stage 3A Depressive disorder Dizziness Dyspnea Gastroesophageal reflux disease Gout History of subarachnoid hemorrhage Hypercholesterolemia Hyperparathyroidism Hypertensive disorder Intertrigo Memory impairment Migraine without aura Muscle pain Obstructive sleep apnea syndrome Persistent insomnia Phlebitis of superficial veins of lower extremity Polyp of colon Restless legs Right Side Sciatica Sj??gren's syndrome Superficial thrombophlebitis Type 2 diabetes mellitus without complication Historical Chronic kidney disease stage 2 Procedure/Surgical History ???Endoscopy (01/10/2021)???Colonoscopy (12/13/2020)???ORIF - lateral malleolus of fibula with internal fixation (10/20/2018)???Removal procedure of implant body (06/13/2015)???Cataract Surgery (09/13/2014)???Cataract Surgery (08/23/2014)???Gastric bypass (10/13/2002)???Abdominoplasty (10/13/1999)?? ?Breast reduction (10/13/1999)???Biopsy of breast (10/13/1993)??? section (05/14/1985)???Tonsillectomy Allergies clindamycin??(Diarrhoea) ALMOND??(Other) sulfamethoxazole-trimethoprim??(Nausea) Ambien Bactrim Lortab acetaminophen-hydrocodone??(Abdominal pain) melatonin??(Hallucinations) zolpidem Social History Electronic Cigarette/Vaping Electronic Cigarette Use: Never. Tobacco Former tobacco user Tobacco Use:. Family History Chronic obstructive lung disease: Father. Heart disease: Father. Myocardial infarction: Brother. Obesity: Father. Parkinsonism: Father. Electronically Signed on 10/04/22 01:05 PM Jhonatan Paris MD Emergency department Discharge instructions * Jhonatan Paris MD: PERFORM Event Display: ED Discharge Information Authored Date: [id number] AARON BHATT :1950 Age:72 years Sex:Female Visit Date:10/04/2022 Primary Care Physician: Leroy Case MD Discharge Instructions We would like to thank you for allowing us to assist you with your healthcare needs. The following includes patient education materials and information regarding your injury/illness. Diagnosis from Today's Visit Cellulitis, face Viral upper respiratory infection Discharge Vitals Temperature??(Temporal Artery) 98.2 ??F (36.8 ??C) Heart Rate??(Peripheral) 82 Respiratory Rate?? 16 Blood Pressure?? 179/85?? Height?? 61.81 in (157.000 cm) Weight??(Estimated) 216.09 lb (98.00 kg) Allergies clindamycin??(Diarrhoea) ALMOND??(Other) sulfamethoxazole-trimethoprim??(Nausea) Ambien Bactrim Lortab acetaminophen-hydrocodone??(Abdominal pain) melatonin??(Hallucinations) zolpidem What to Do Next You Need to Schedule the Following Appointments Follow Up with??Leroy Case MD When:??Within 1 month Where: [facility] [address] [address]- Upcoming Scheduled Appointments Friday 3:40 PM EST ?? You were treated today on an emergency basis; it may be dickinson to contact your primary care provider to notify them of your visit today. You may have been referred to your regular doctor or a specialist, please follow up as instructed. If your condition worsens or you can't get in to see the doctor, contact the Emergency Department. Medications What How Much When Why Instructions Next Dose New benzonatate (benzonatate 200 mg oral capsule) 1 Capsules Oral (given by mouth) 3 times a day as needed for as needed for cough Cellulitis, face Pickup at [facility] New cephalexin (cephalexin 500 mg oral capsule) 1 Capsules Oral (given by mouth) 4 times a day Cellulitis, face Duration: 7 Days Pickup at [facility] Unchanged albuterol (ProAir HFA 90 mcg/ inh inhalation aerosol) 1 Puffs Inhale (breathe in) Every 6 hours as needed for as needed for wheezing Sinusitis Unchanged amoxicillin-clavulanate (amoxicillin-clavulanate 875 mg-125 mg oral tablet) 1 tab Oral (given by mouth) Every 12 hours Sinusitis Duration: 10 Days Unchanged aspirin (aspirin 325 mg oral capsule) 1 Capsules Oral (given by mouth) Every day Unchanged azaTHIOprine (azaTHIOprine 50 mg oral tablet) Unchanged clonazePAM (clonazePAM 0.5 mg oral tablet) 1 tab Oral (given by mouth) Every day as needed for other (see comment) Take as needed for 90 days ?? Unchanged dulaglutide (Trulicity Pen 1.5 mg/ 0.5 mL subcutaneous solution) Unchanged Durable Medical Equipment for Prescription (Compression stockings) See instructions Phlebitis of superficial veins of lower extremity 3 pair [id number]:(I80.9) ?? Unchanged Durable Medical Equipment for Prescription (Diabetic shoes) See instructions Type 2 diabetes mellitus without complication NEEDS NEW PAIR OF DIABETIC SHOES DX: E11.9 ?? Unchanged ferrous gluconate (!-ferrous gluconate 324 mg (37.5 mg elemental iron) oral tablet) 1 tab Oral (given by mouth) Every day Unchanged fluconazole (fluconazole 150 mg oral tablet) 1 tab Oral (given by mouth) Once Unchanged furosemide (furosemide 40 mg oral tablet) 1 tab Oral (given by mouth) Every day Hypertensive disorder Unchanged gabapentin (gabapentin 100 mg oral capsule) 1 Capsules Oral (given by mouth) 3 times a day Unchanged gabapentin (gabapentin 100 mg oral capsule) 1 Capsules Oral (given by mouth) 3 times a day TAKE ONE CAPSULE BY MOUTH THREE TIMES A DAY ?? Unchanged hyoscyamine (hyoscyamine 0.125 mg sublingual tablet) Unchanged ibuprofen (ibuprofen 800 mg oral tablet) 1 tab Oral (given by mouth) Every 8 hours as needed for as needed for pain Back pain with right-sided sciatica Unchanged insulin glargine (Lantus Solostar Pen 100 units/ mL subcutaneous solution) See instructions inject 30 units daily ?? Unchanged insulin lispro (HumaLOG 100 units/ mL injectable solution) See instructions per patient sliding scale ?? Unchanged mepolizumab (Nucala Prefilled Autoinjector 100 mg/ mL subcutaneous solution) Unchanged mycophenolate mofetil (mycophenolate mofetil 500 mg oral tablet) Unchanged nirmatrelvir-ritonavir (Paxlovid 150 mg-100 mg (300 mg-100 mg Dose) oral tablet) 2 tab Oral (given by mouth) 2 times a day Duration: 5 Days RENAL DOSING (30-60 ml/ min). Take one 150 mg nirmatrelvir tablet with one 100 mg ritonavir tablet at the same time as indicated on the blister cards. Provide Fact Sheet for Patients/ Caregivers ?? Unchanged omeprazole (omeprazole 40 mg oral delayed release capsule) 1 Capsules Oral (given by mouth) 2 times a day Unchanged Other Prescription (PLAQUENIL 200 MG TABLET) Unchanged predniSONE (predniSONE 5 mg oral tablet) Tapered dose ?? Unchanged QUEtiapine (SEROquel 25 mg oral tablet) 1 tab Oral (given by mouth) Every day at bedtime ?? Unchanged rizatriptan (rizatriptan 10 mg oral tablet) 1 tab Oral (given by mouth) Every day as needed for as needed for migraine headache Migraine without aura may repeat dose every 2 hours up to a maximum of 30 mg in 24 hours ?? Unchanged rosuvastatin (rosuvastatin 10 mg oral tablet) 1 tab Oral (given by mouth) Every day Unchanged torsemide (torsemide 20 mg oral tablet) Unchanged traMADol (traMADol 50 mg oral tablet) 1 tab Oral (given by mouth) Every 12 hours as needed for as needed for pain Insomnia Body mass index 40+ - severely obese Depressive disorder Hypertensive disorder Sj??gren's syndrome Type 2 diabetes mellitus without complication Unchanged triamcinolone topical (triamcinolone 0.1% topical cream) 1 Application Topical (on the skin) 2 times a day Apply a thin layer to the affected area(s) ?? Unchanged valACYclovir (valACYclovir 1 g oral tablet) 1 tab Oral (given by mouth) 3 times a day Take for 7 days ?? Unchanged venlafaxine (venlafaxine 225 mg oral tablet, extended release) 1 tab Oral (given by mouth) Every day Depressive disorder Duration: 90 Days Pharmacy Information [facility]: [address], [place] [id number] [phone] [employer] Cellulitis, Adult Cellulitis is a skin infection. The infected area is usually warm, red, swollen, and tender. This condition occurs most often in the arms and lower legs. The infection can travel to the muscles, blood, and underlying tissue and become serious. It is very important to get treated for this condition. What are the causes? Cellulitis is caused by bacteria. The bacteria enter through a break in the skin, such as a cut, burn, insect bite, open sore, or crack. What increases the risk? This condition is more likely to occur in people who: ? Have a weak body defense system (immune system). ? Have open wounds on the skin, such as cuts, pollard, bites, and scrapes. Bacteria can enter the body through these open wounds. ? Are older than 60 years of age. ? Have diabetes. ? Have a type of long-lasting (chronic) liver disease (cirrhosis) or kidney disease. ? Are obese. ? Have a skin condition such as: ? Itchy rash (eczema). ? Slow movement of blood in the veins (venous stasis). ? Fluid buildup below the skin (edema). ? Have had radiation therapy. ? Use IV drugs. What are the signs or symptoms? Symptoms of this condition include: ? Redness, streaking, or spotting on the skin. ? Swollen area of the skin. ? Tenderness or pain when an area of the skin is touched. ? Warm skin. ? A fever. ? Chills. ? Blisters. How is this diagnosed? This condition is diagnosed based on a medical history and physical exam. You may also have tests, including: ? Blood tests. ? Imaging tests. How is this treated? Treatment for this condition may include: ? Medicines, such as antibiotic medicines or medicines to treat allergies (antihistamines). ? Supportive care, such as rest and application of cold or warm cloths (compresses) to the skin. ? Hospital care, if the condition is severe. The infection usually starts to get better within 1???2 days of treatment. Follow these instructions at home: Medicines ? Take bmir-dor-eomwzeg and prescription medicines only as told by your health care provider. ? If you were prescribed an antibiotic medicine, take it as told by your health care provider. Do notstop taking the antibiotic even if you start to feel better. General instructions ? Drink enough fluid to keep your urine pale yellow. ? Do not touch or rub the infected area. ? Raise (elevate) the infected area above the level of your heart while you are sitting or lying down. ? Apply warm or cold compresses to the affected area as told by your health care provider. ? Keep all follow-up visits as told by your health care provider. This is important. These visits letyour health care provider make sure a more serious infection is not developing. Contact a health care provider if: ? You have a fever. ? Your symptoms do not begin to improve within 1???2 days of starting treatment. ? Your bone or joint underneath the infected area becomes painful after the skin has healed. ? Your infection returns in the same area or another area. ? You notice a swollen bump in the infected area. ? You develop new symptoms. ? You have a general ill feeling (malaise) with muscle aches and pains. Get help right away if: ? Your symptoms get worse. ? You feel very sleepy. ? You develop vomiting or diarrhea that persists. ? You notice red streaks coming from the infected area. ? Your red area gets larger or turns dark in color. These symptoms may represent a serious problem that is an emergency. Do not wait to see if the symptoms will go away. Get medical help right away. Call your local emergency services (911 in the [place] Do not drive yourself to the hospital. Summary ? Cellulitis is a skin infection. This condition occurs most often in the arms and lower legs. ? Treatment for this condition may include medicines, such as antibiotic medicines or antihistamines. ? Take dkyd-wki-ojhbswi and prescription medicines only as told by your health care provider. If you were prescribed an antibiotic medicine, do not stop taking the antibiotic even if you start to feel better. ? Contact a health care provider if your symptoms do not begin to improve within 1???2 days of starting treatment or your symptoms get worse. ? Keep all follow-up visits as told by your health care provider. This is important. These visits letyour health care provider make sure that a more serious infection is not developing. This information is not intended to replace advice given to you by your health care provider. Make sure you discuss any questions you have with your health care provider. Document Revised: 10/09/2020 Document Reviewed: 02/18/2019 [employer] Patient Education ?? 2021 [employer] Patient/Automation Control Integrator Signature Patient Name:Alana BHATTVOARMEN Lee I have received this information and my questions have been answered. Patient/Automation Control Integrator Name: Patient/Automation Control Integrator Signature: Relationship to Patient: Witness Name/Signature: Date: Electronically Signed on: 10/04/2022 13:05 ESTSigned by:[facility] Emergency department Note * Janneth York M: PERFORM Event Display: ED Notes Authored Date: [id number] Patient Care team information Personnel Name: Leory Case MD Address: Address: [address] [address]- [place]
--- OUTSIDE RECORDS SUMMARY | 2023-11-24 02:03 | XMS_ITS | Continuity of Care Document ---
Author Name Unknown Organization [facility] Address [address] [place] [address] Care Team Providers Care Exceptional Student Education Teacher Name Role Phone Leroy Case Primary Care Physician Encounter [facility] [id number] Date(s): 12/30/22 - 12/30/22 [facility] [address] [place] [address] Encounter Diagnosis Obstructive sleep apnea syndrome(Discharge Diagnosis) - 12/30/22 Periodic limb movements of sleep(Discharge Diagnosis) - 12/30/22 Obstructive sleep apnea (adult) (pediatric)(Final) - Periodic limb movement disorder(Final) - Discharge Disposition: Home or Self Care Attending Physician: 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 DENTAL INSURANCE COORDINATOR Allergies, Adverse Reactions, Alerts Substance Reaction Severity [...] Spine Lumbar w/o Contrast 11/13/22 Functional Status 12/30/22 Other exposure to Infectious Disease Non e [...] Comment: Unit: Unknown 3Result Comment: Unit: Unknown Clinical Training Specialist: [employer] Medications albuterol 2.5 mg/3 mL (0.083%) inhalation solution 2.5 mg = 3 mL, NEB, TID, PRN as needed for wheezing, # 810 mL, 4 Refill(s), Pharmacy: [facility], 157, cm, 10/04/22 11:31:00 EST, Height/Length [...] 0 Refill(s) Start Date: 04/23/22 Status: Ordered furosemide 40 mg oral tablet 90 tab, 0 Refill(s) Start Date: 11/24/22 Status: Ordered gabapentin 100 mg oral capsule 100 mg = 1 cap, Oral, TID, # 90 cap, 3 Refill(s), Pharmacy: [facility], 157, cm, 10/04/2211:31:00 EST, Height/Length Dosing, [...] pain, # 30 tab, 0 Refill(s), Pharmacy: [facility], 157.48, cm, 05/13/22 10:43:00 EDT, Height/Length [...] Daily, # 30 tab, 4 Refill(s), Pharmacy: [facility], 157, cm, 10/04/22 11:31:00 EST, Height/Length [...] wheezing, # 8.5 g, 1 Refill(s), Pharmacy: [facility], 157.48, cm, 05/13/22 10:43:00 EDT, Height/Length [...] hours, # 12 tab, 1 Refill(s), Pharmacy: [facility], 157, cm, 10/04/22 11:31:00 EST, Height/Length Dosing, 98, kg, 1... Start Date: 12/17/22 Status: Ordered rOPINIRole 1 mg oral tablet See Instructions, take 1 PO two hours before bedtime, # 90 tab, 1 Refill(s), Pharmacy: [facility], 157, cm, 10/04/22 11:31:00 EST, Height/Length [...] pain, # 28 tab, 0 Refill(s), Pharmacy: [facility] Start Date: 03/14/22 Status: Ordered traZODone [...] Daily, # 30 tab, 0 Refill(s), Pharmacy: [facility], 157, cm, 10/04/22 11:31:00 EST, Height/Length Dosing, 98, kg, 10/04/22 11:31:00 EST, Weight Dosing Start Date: 11/14/22 Status: Ordered venlafaxine 75 mg oral capsule, extended release 75 mg = 1 cap, Oral, Daily, # 30 cap, 0 Refill(s), Pharmacy: [facility], 157, cm, 10/04/22 11:31:00 EST, Height/Length [...] Range]: 1 Peripheral Pulse Rate [60-100 bpm] 91 bp m (12/30/22 2:39 PM) Blood Pressure [90-140/60-90 mmHg] 102/7 8mmHg (12/30/22 2:39 PM) Weight 98.7 kg (12/30/22 2:39 PM) Weight Measured (lbs) 217.596 lb (12/30/22 2:39 PM) Height 157 cm (12/30/22 2:39 PM) Height/Length Measured (inches) 61.81 in ch (12/30/22 2:39 PM) BSA Measured 2.07 m2 (12/30/22 2:39 PM) Body Mass Index 40.04 kg/m2 (12/30/22 2:39 PM) Social History Social History Type Response Tobacco Former tobacco user Tobacco Use:. Sex Female Physician Outpatient Note * 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 DENTAL INSURANCE COORDINATOR: PERFORM Event Display: Office Clinic Note Physician Authored Date: [id number] AARON BHATT :1950 Age:72 years Sex:Female Visit Date:12/30/2022 Primary Care Physician: Leroy Case MD History of Present Illness Aaron Bhatt has a visit for ANAT follow-up. ?? Aaron was last seen by Dr. Mcclain on 01/18/2020. She has a medical history to include asthma, back pain, obesity, Bipolar, depression, CKD, chronic rhinitis, gout, HTN, GERD, heart failure, migraine, hyperparathyroidism, Sjogren's, and insomnia. ?? Diagnostic Polysomnogram on 05/31/2013 (251 lbs, bmi 47) was repeat diagnostic test to re-qualify for CPAP. Mild Obstructive Sleep Apnea ad Severe Periodic Limb Movement Disorder. AHI 12.2/hr. REM AHI21.5/hr. Haroon SpO2 87% and Mean SpO2 95%. Arousal [...] to 12cm. PLM 2.3/hr. PLMa 1.5/hr. ?? Last visit she reported??she had been using her CPAP consistently. She says she has fallen out of bed quite a few times so she now has a bed rail. She says her says she is also shaking in sleep.She is not dreaming when this occurs as far as she knows and there is no purposeful movement noted by her . She does not have any seizure history. She is not waking herself doing this and she is unaware of this. No incontinence and no waking feeling confused.??This started about 4-6 months ago. She takes clonazepam 0.5 mg QHS, trazodone 25 mg QHS, and venlafaxine 225 mg QHS and has been on this for years. ??She is NOT taking gabapentin or Seroquel any longer. She sleeps from about 9 pm to 4-5 am. She wakes 1-2/night from unknown reason and she is up for up to 30 minutes. Symptoms did not sound consistent with RBD or seizures but titration ordered for further evaluation. ?? Titration??was completed on??12/15/22 (BMI 39.51) and I reviewed the results with??her in detail today. Sleep efficiency was 54%, AHI CPAP titrated from 5 to 9 cm, CPAP 6 cm was effective but there were mild desaturations even at final pressure of 9 cm, sp02 haroon 82.6%,?? 37 minutes were spent john saturation <88%, arousal index 45/hr, PLMi 82.6/hr, PLM arousal index 37.2/hr, EKG showed NSR.No parasomnias and no seizure activity noted. ?? She feels this was a typical night of sleep for her. She says she was put on gabapentin in the past and even at a very low dose it made her really sick to my stomach and my head is just not with me. She says her recorded her since the study and she was surprised at how much my legs moved. Physical Exam Vitals & Measurements HR:??91??(Peripheral)?? BP:??102/78?? SpO2:??97%?? HT:??157??cm?? WT:??98.7??kg?? BMI:??40.04?? BSA:??2.07?? Assessment/Plan 1.??Obstructive sleep apnea syndrome??G47.33 ANAT diagnosed in 2013 with an AHI of 12.2/hr. She has been treated with CPAP 5- 14 cm. She has greatcompliance and reduction in AHI. She benefits from CPAP and continued use is recommended. She recently had a titration study and current pressures are adequate. It was suggested that an overnight oxygen study be considered once legs are treated and she is sleeping better as she had periods of mild hypoxemia on CPAP. Ordered: rOPINIRole 1 mg oral tablet, See Instructions, take 1 PO two hours before bedtime, # 90 tab, 1 Refill(s), Pharmacy: [facility], 157, cm, 10/04/22 11:31:00 EST, Height/Length Dosing, 98, kg,10/04/22 11:31:00 EST, Weight Dosing Follow-Up Appointment Request [facility], *Est. 01/30/23 +/- 7 days, Future Order, In [facility] ?? 2.??Periodic limb movements of sleep??G47.61 Her reported she shakes in sleep. Recent titration without any parasomnias or seizure activity. There was no REM sleep but the history did not sound consistent with BRD> She did have severe PLMS with a PLMi 82.6/hr and PLM arousal index 37.2/hr. She tried gabapentin and had very poor tolerance to this. She is already taking clonazepam 0.5 mg QHS, she tried trazodone and this didn't hep. She was previously on tramadol for pain but has not been on this for about six months. She does not have any caffeine or chocolate but she takes venlafaxine which may cause or worsen PLMS. She hasnever been on ropinirole or pramipexole. At this time I have recommended checking a ferritin level but she already??takes ferrous sulfate 325 mg with vit C daily. A prescription for ropinirole 1 mg PO two hours before bedtime??was sent to their pharmacy today. ADR's were covered including risk of impulse control disorder. They were advised to start with half a tablet the first couple of nights toreduce the risk of GI side effects.??I will see her back in one month. She is asked to call our office for any sleep related questions or concerns. I provided greater than 30 minutes in the care of this patient, more than half the time was spent in phuy-uk-gtzp counseling. Ordered: rOPINIRole 1 mg oral tablet, See Instructions, take 1 PO two hours before bedtime, # 90 tab, 1 Refill(s), Pharmacy: [facility], 157, cm, 10/04/22 11:31:00 EST, Height/Length Dosing, 98, kg,10/04/22 11:31:00 EST, Weight Dosing Follow-Up Appointment Request [facility], *Est. 01/30/23 +/- 7 days, Future Order, In [facility] ?? Problem List/Past Medical [...] capsule, 325 mg= 1 cap, Oral, Daily clonazePAM 0.5 mg oral tablet, 0.5 mg= 1 tab, Oral, Daily, PRN Compression stockings, See instructions Diabetic shoes, See instructions furosemide 40 mg oral tablet gabapentin 100 [...] formulation 08/04/2015 Recorded Comments : Unit: Unknown Clinical Training Specialist: [employer] influenza virus vaccine, inactivated 06/28/2014 Recorded influenza virus vaccine, inactivated 06/29/2013 Recorded influenza virus vaccine, inactivated 10/23/2012 Recorded tetanus/diphth/pertuss (Tdap) adult/adol 01/22/2012 Recorded influenza virus vaccine, inactivated 07/16/2011 Recorded Electronically Signed on 12/30/22 03:13 PM 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 NP Patient Care team information Care Team Personnel Name: Leroy Case MD Position: Physician Member Role: Informed Provider Address: Address: [address] [address]- [place] Care Team Related Persons Name: JERED STUBBS Address: Home Name: VICKIE BHATT III Address: Home [address] [place] [phone]
--- OUTSIDE RECORDS SUMMARY | 2023-11-24 02:04 | XMS_ITS | Continuity of Care Document ---
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 Shoulder strai n Comment: Diagnosis: Shoulder pain-swelling Comment: Future Appointments Future Scheduled Tests Radiology* MRI Spine Lumbar w/o Contrast 11/13/22 Functional Status 05/31/23 Family Member Travel History No recent t ravel Recent Travel History No recent travel Other exposure to Infectious Disease Non e Immunizations Given and Recorded Vaccine Date Status Refusal Reason influenza virus vaccine, live 03/12/21 Recorded influenza virus vaccine, live 07/13/19 Recorded influenza virus vaccine, live 9/28/16 Recorded SARS-CoV-2 (COVID-19) mRNA-1273 vaccine 02/07/21 R [...] Comment: Unit: Unknown 3Result Comment: Unit: Unknown 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: [employer] Medications !-Zofran ODT 4 mg oral tablet, disintegrating 4 mg = 1 tab, Oral, every 6 hr, PRN as needed for nausea/vomiting, # 12 tab, 0 Refill(s), Pharmacy:[facility], 157.4, cm, 02/01/23 10:28:00 EDT, Height/Length Dosing, 95.7, kg, 02/01/23 10:28:00 EDT, Weight Dosing Start Date: 02/01/23 Stop Date: 02/04/23 Status: Ordered acetaminophen 650 mg oral tablet, extended release 1,300 mg = 2 tab, Oral, TID, PRN as needed for pain, not to exceed 6 tablets/da given to her by herrheumatologist., # 100 tab, 1 Refill(s), Pharmacy: [facility], 157.4, cm, 02/01/23 10:28:00 EDT, Height/Length Dosing, 95.7, kg, 02/01/23 10:28:00 EDT, Weight Dosing Start Date: 05/20/23 Status: Ordered albuterol 2.5 mg/3 mL (0.083%) inhalation solution 2.5 mg = 3 mL, NEB, TID, PRN as needed for wheezing, # 810 mL, 4 Refill(s), Pharmacy: [facility], 157, cm, 10/04/22 11:31:00 EST, Height/Length Dosing, 98, kg, 10/04/22 11:31:00 EST, WeightDosing Start Date: 10/09/22 Status: Ordered aspirin 325 mg oral capsule 325 mg = 1 cap, Oral, Daily, # 30 cap, 0 Refill(s) Start Date: 03/14/22 Status: Ordered azithromycin 250 mg oral tablet See Instructions, Oral, Daily, Take 2 tabs on day 1 and 1 tab on day 2-5, # 6 tab, 0 Refill(s), Pharmacy: [facility], 157.4, cm, 02/01/23 10:28:00 EDT, Height/Length Dosing, 95.7, kg, 02/01/23 10:28:00 EDT, Weight Dosing Start Date: 02/05/23 Status: Ordered clonazePAM 0.5 mg oral tablet [...] TID, # 300 mL, 0 Refill(s), Pharmacy: [facility], 157.4, cm, 02/01/2310:28:00 EDT, Height/Length Dosing, [...] dose, # 1 tab, 0 Refill(s), Pharmacy: [facility], 157.4,cm, 02/01/23 10:28:00 EDT, Height/Length Dosing, 95.7, kg, 02/01/23 10:28:00 EDT, Weight Dosing Start Date: 05/26/23 Status: Ordered FreeStyle Lite Test Strips FreeStyle Lite Test Strips, Use one strip three times daily, Supply, See instructions, # 300 EA, 4 Refill(s), Pharmacy: [facility] Start Date: 02/05/23 Status: Ordered furosemide 40 mg oral tablet 90 tab, 0 Refill(s) Start Date: 11/24/22 Status: Ordered gabapentin 100 mg oral capsule 100 mg = 1 cap, Oral, TID, # 90 cap, 0 Refill(s), Pharmacy: [facility], 157.4, cm, 02/01/23 10:28:00 EDT, Height/Length Dosing, 95.7, kg, 02/01/23 10:28:00 EDT, Weight Dosing Start Date: 05/20/23 Status: Ordered ibuprofen 800 mg oral tablet 800 mg = 1 tab, Oral, every 8 hr, PRN as needed for pain, # 30 tab, 0 Refill(s), Pharmacy: [facility], 157.4, cm, 02/01/23 10:28:00 EDT, Height/Length [...] QID, # 4 g, 0 Refill(s), Pharmacy: [facility], 157.4, cm, 02/01/23 10:28:00 EDT, Height/Length [...] 4x/day, # 100 mL, 2 Refill(s), Pharmacy: [facility], 157.4, cm, 02/01/23 10:28:00 EDT, Height/Length Dosing, 95.7, kg, 02/01/23 10:28:00 EDT, Weight Dosing Start Date: 04/17/23 Status: Ordered lisinopril 20 mg oral tablet 20 mg = 1 tab, Oral, Daily, # 30 tab, 4 Refill(s), Pharmacy: [facility], 157, cm, 10/04/22 11:31:00 EST, Height/Length [...] wheezing, # 8.5 g, 6 Refill(s), Pharmacy: [facility], 157.4, cm, 02/01/23 10:28:00 EDT, Height/Length [...] HOURS, # 12 tab, 3 Refill(s), Pharmacy: [facility], 157.4, cm, 02/01/23 10:28:00 EDT, Height/Length Dosing, 95.7, kg, 02/01/23 10:28:00 EDT, Weight Dosing Start Date: 04/14/23 Status: Ordered rOPINIRole 1 mg oral tablet See Instructions, take 2 PO two hours before bedtime, # 180 tab, 3 Refill(s), Pharmacy: [facility], 157.4, cm, 02/01/23 10:28:00 EDT, Height/Length [...] 02/01/23 Status: Ordered venlafaxine 150 mg oral tablet, extended release 150 mg = 1 tab, Oral, Daily, # 30 tab, 0 Refill(s), Pharmacy: [facility], 157.4, cm, 02/01/23 10:28:00 EDT, Height/Length Dosing, 95.7, kg, 02/01/23 10:28:00 EDT, Weight Dosing Start Date: 05/20/23 Status: Ordered venlafaxine 75 mg oral capsule, extended release 75 mg = 1 cap, Oral, Daily, # 90 cap, 3 Refill(s), Pharmacy: [facility], 157.4, cm, 02/01/23 10:28:00 EDT, Height/Length Dosing, 95.7, kg, 02/01/23 10:28:00 EDT, Weight Dosing Start Date: 05/20/23 Status: Ordered Vitamin B12 5000 mcg oral [...] Active Dysphagia Confirmed Active Dyspnea Confirmed Active Fibromyalgia Confirmed [...] Active Otalgia of right ear Confirmed Active Parasomnia Confirmed Active Perforation of nasal septum Confirmed 08/25/18 Active Periodic limb movements of sleep Confirmed Active Persistent insomnia Confirmed Active Phlebitis of superficial veins of lower extremity Confirmed Active Polyp of colon Confirmed Active Restless legs Confirmed Active Right Side Sciatica Confirmed Active Sj??gren's syndrome Confirmed Active Sore [...] polyps, mild diverticulosis. 1st one done in [place] years ago pt reports polyps removed 3L distal fibula 4Patient reported metal in left foot and metal in back Vital Signs Most recent to oldest [Reference Range]: 1 Temperature Temporal Artery [36-38 Deg C ] 36.2 Deg C (05/31/23 11:10 AM) Peripheral Pulse Rate [60-100 bpm] 87 bp m (05/31/23 11:10 AM) Respiratory Rate [12-24 br/min] 18 br/mi n (05/31/23 11:10 AM) Blood Pressure [90-140/60-90 mmHg] 149/6 7mmHg *HI* (05/31/23 11:10 AM) Weight Dosing 88.45 kg (05/31/23 11:18 AM) Weight Estimated 88.45 kg (05/31/23 11:10 AM) Height/Length Dosing 158.000 cm (05/31/23 11:18 AM) Height/Length Estimated 158.000 cm (05/31/23 11:10 AM) Social History Social History Type Response Tobacco Former tobacco user Tobacco Use:. Sex Female Hospital Discharge Instructions Patient Education 05/31/2023 11:45:02 Shoulder Sprain Shoulder Sprain A shoulder sprain is a partial or complete tear in one of the tough, fiber-like tissues (ligaments)in the shoulder. The ligaments in the shoulder help to hold the shoulder in place. What are the causes? This condition may be caused by: ??? A fall. ??? A hit to the shoulder. ??? A twist of the arm. What increases the risk? You are more likely to develop this condition if you: ??? Play sports. ??? Have problems with balance or coordination. What are the signs or symptoms? Symptoms of this condition include: ??? Pain when moving the shoulder. ??? Limited ability to move the shoulder. ??? Swelling and tenderness on top of the shoulder. ??? Warmth in the shoulder. ??? A change in the shape of the shoulder. ??? Redness or bruising on the shoulder. How is this diagnosed? This condition is diagnosed with: ??? A physical exam. During the exam, you may be asked to do simple exercises with your shoulder. ??? Imaging tests such as X-rays, MRI, or a CT scan. These tests can show how severe the sprain is. How is this treated? This condition may be treated with: ??? Rest. ??? Pain medicine. ??? Ice. ??? A sling or brace. This is used to keep the arm still while the shoulder is healing. ??? Physical therapy or rehabilitation exercises. These help to improve the range of motion and strength of the shoulder. ??? Surgery (rare). Surgery may be needed if the sprain caused a joint to become unstable. Surgery may also be needed to reduce pain. Some people may develop ongoing shoulder pain or lose some range of motion in the shoulder. However, most people do not develop long-term problems. Follow these instructions at home: If you have a sling or brace: ??? Wear the sling or brace as told by your health care provider. Remove it only as told by your health care provider. ??? Loosen the sling or brace if your fingers tingle, become numb, or turn cold and blue. ??? Keep the sling or brace clean. ??? If the sling or brace is not waterproof: ??? Do not let it get wet. ??? Cover it with a watertight covering when you take a bath or shower. Activity ??? Rest your shoulder. ??? Move your arm only as much as told by your health care provider, but move your hand and fingersoften to prevent stiffness and swelling. ??? Return to your normal activities as told by your health care provider. Ask your health care provider what activities are safe for you. ??? Ask your health care provider when it is safe for you to drive if you have a sling or brace on your shoulder. ??? If you were shown how to do any exercises, do them as told by your health care provider. General instructions ??? If directed, put ice on the affected area. ??? Put ice in a plastic bag. ??? Place a towel between your skin and the bag. ??? Leave the ice on for 20 minutes, 2???3 times a day. ??? Take nkid-mgq-gxrkscz and prescription medicines only as told by your health care provider. ??? Do not use any products that contain nicotine or tobacco, such as cigarettes, e-cigarettes, andchewing tobacco. These can delay healing. If you need help quitting, ask your health care provider. ??? Keep all follow-up visits as told by your health care provider. This is important. Contact a health care provider if: ??? Your pain gets worse. ??? Your pain is not relieved with medicines. ??? You have increased redness or swelling. Get help right away if: ??? You have a fever. ??? You cannot move your arm or shoulder. ??? You develop severe numbness or tingling in your arm, hand, or fingers. ??? Your arm, hand, or fingers feel cold and turn blue, white, or bal. Summary ??? A shoulder sprain is a partial or complete tear in one of the tough, fiber- like tissues (ligaments) in the shoulder. ??? This condition may be caused by a fall, a hit to the shoulder, or a twist of the arm. ??? Treatment usually includes rest, ice, and pain medicine as needed. ??? If you have a sling or brace, wear it as told by your health care provider. Remove it only as told by your health care provider. This information is not intended to replace advice given to you by your health care provider. Make sure you discuss any questions you have with your health care provider. Document Revised: 06/19/2022 Document Reviewed: 06/19/2022 [employer] Patient Education ?? 2022 [employer]. 05/31/2023 11:45:00 Muscle Strain Muscle Strain A muscle strain is an injury that occurs when a muscle is stretched beyond its normal length. Usually, a small number of muscle fibers are torn when this happens. There are three types of muscle strains. First-degree strains have the least amount of muscle fiber tearing and the least amount of pain. Second-degree and third-degree strains have more tearing and pain. Usually, recovery from muscle strain takes 1???2 weeks. Complete healing normally takes 5???6 weeks. What are the causes? This condition is caused when a sudden, violent force is placed on a muscle and stretches it too far. This may occur with a fall, while lifting, or during sports. What increases the risk? This condition is more likely to develop in athletes and people who are physically active. What are the signs or symptoms? Symptoms of this condition include: ??? Pain. ??? Tenderness. ??? Bruising. ??? Swelling. ??? Trouble using the muscle. How is this diagnosed? This condition is diagnosed based on a physical exam and your medical history. Tests may also be done, including an X-ray, ultrasound, or MRI. How is this treated? This condition is initially treated with HUTCHINS therapy. This therapy involves: ??? Protecting the muscle from being injured again. ??? Resting the injured muscle. ??? Icing the injured muscle. ??? Applying pressure (compression) to the injured muscle. This may be done with a splint or elastic bandage. ??? Raising (elevating) the injured muscle. Your health care provider may also recommend medicine for pain. Follow these instructions at home: If you have a removable splint: ??? Wear the splint as told by your health care provider. Remove it only as told by your health care provider. ??? Check the skin around the splint every day. Tell your health care provider about any concerns. ??? Loosen the splint if your fingers or toes tingle, become numb, or turn cold and blue. ??? Keep the splint clean. ??? If the splint is not waterproof: ??? Do not let it get wet. ??? Cover it with a watertight covering when you take a bath or a shower. Managing pain, stiffness, and swelling ??? If directed, put ice on the injured area. To do this: ??? If you have a removable splint, remove it as told by your health care provider. ??? Put ice in a plastic bag. ??? Place a towel between your skin and the bag. ??? Leave the ice on for 20 minutes, 2???3 times a day. ??? Remove the ice if your skin turns bright red. This is very important. If you cannot feel pain, heat, or cold, you have a greater risk of damage to the area. ??? Move your fingers or toes often to reduce stiffness and swelling. ??? Raise (elevate) the injured area above the level of your heart while you are sitting or lying down. ??? Wear an elastic bandage as told by your health care provider. Make sure that it is not too tight. General instructions ??? Take lztg-ggo-dxfkjjv and prescription medicines only as told by your health care provider. Treatment may include muscle relaxants or medicines for pain and inflammation that are taken by mouth or applied to the skin. ??? Restrict your activity and rest the injured muscle as told by your health care provider. Gentlemovements may be allowed. ??? If physical therapy was prescribed, do exercises as told by your health care provider. ??? Do not put pressure on any part of the splint until it is fully hardened. This may take severalhours. ??? Do not use any products that contain nicotine or tobacco. These products include cigarettes, chewing tobacco, and vaping devices, such as e-cigarettes. If you need help quitting, ask your health care provider. ??? Ask your health care provider when it is safe to drive if you have a splint. ??? Keep all follow-up visits. This is important. How is this prevented? Warm up before exercising. This helps to prevent future muscle strains. Contact a health care provider if: ??? You have more pain or swelling in the injured area. Get help right away if: ??? You have numbness or tingling in the injured area. ??? You lose a lot of strength in the injured area. Summary ??? A muscle strain is an injury that occurs when a muscle is stretched beyond its normal length. ??? This condition is caused when a sudden, violent force is placed on a muscle and stretches it too far. ??? This condition is initially treated with HUTCHINS therapy, which involves protecting, resting, icing, compressing, and elevating. ??? Gentle movements may be allowed. If physical therapy was prescribed, do exercises as told by your health care provider. This information is not intended to replace advice given to you by your health care provider. Make sure you discuss any questions you have with your health care provider. Document Revised: 12/17/2021 Document Reviewed: 12/17/2021 [employer] Patient Education ?? 2022 [employer]. Follow Up Care 05/31/2023 11:10:52 With:Leroy Case MD Address: [place] [address]- When:1 month Physician Emergency department Note * Jhonatan Paris MD: PERFORM Event Display: ED Note Physician Authored Date: [id number] AARON BHATT :1950 Age:72 years Sex:Female Visit Date:05/31/2023 Primary Care Physician: Leroy Case MD Basic Information Time Seen: Jhonatan Paris MD / 05/31/2023 11:18 Chief Complaint 5 weeks of shoulder pain PCP ??not contacted. PT Denies injury. PT states she has iced and used heat but it's not any better and now it's stiff. History Of Present Illness: 72-year-old female past medical history heart failure, obesity, bipolar, CKD, depression, fibromyalgia, reflux, gout, hyperparathyroidism, Sjogren's, rheumatoid arthritis, diabetes presents with??left shoulder pain. ??Is been going on for about 5 weeks, atraumatic. ??Denies any??known acute injury but she states she is pretty active??with daily activities with her bilateral upper extremities. ??Never had this before. ??Pain is constant in the left shoulder??been present for 5 weeks, states it is worse with movement??and worse??with??palpation of the anterior shoulder.?? Radiates??down into the ??proximal left upper extremity proximal to the elbow.?? Denies any chest pain, shortness of breath, nausea vomiting recent sickness fevers??history of DVT or PE any arm swelling or redness to the arm itself. Review of Systems: Arm pain Physical Exam Vitals & Measurements T:??36.2?C ??(Temporal Artery)?? HR:??87??(Peripheral)?? RR:??18?? BP:??149/67?? SpO2:??97%?? HT:??158.000??cm?? WT:??88.45??kg??(Estimated)?? Pain Score:??8?? O2 Therapy:??Room air?? General: Alert and oriented, well nourished,?No??acute distress Eye: PERRL, EOMI,?Normal?conjunctiva HENT: Normocephalic Lungs: Clear to auscultation and percussion,?Non-labored?? respiration Heart:?Normal? rate,?Regular??rhythm,?No??murmur,?No??gallop,?No??edema Abdomen: Soft, non-tender, non-distended, Musculoskeletal:??Range of motion shoulder flexion is limited secondary to pain, only able to go about 90 degrees until the pain starts, radial pulse and neurovascular exam and motor exam otherwise??unremarkable of the left upper extremity, there is highly reproducible tenderness to the anterior part of the left??shoulder and proximal humerus Skin: Skin overlying the left upper extremity appears normal no swelling or erythema noted Psychiatric: Cooperative, appropriate mood and affect Medical Decision Makin-year-old female presents with left shoulder pain. ??Been going on for 5 weeks, no acute trauma??or acute injuries.?? 36.2, 149/67, 87, 18, 97%. ??Patient clinically in no acute distress. ??Neurovascular exam left upper extremity is normal.?? She has highly reproducible tenderness to the anterior left shoulder and??surrounding deltoid musculature??of the proximal humerus.?? There is no erythemaor swelling noted to the left upper extremity. ??She does not have a history of DVT or PE.?? She went to physical therapy for the shoulder pain and states that??it did not help much.?? Her shoulder range of motion is limited in flexion secondary to the pain. ??Given the physical exam,??highly suspicious of musculoskeletal injury or strain,??she does have internal/external rotation??pain and shoulder flexion pain, possible rotator cuff injury. ??There is no clinical evidence to suggest??vascularor??DVT etiology of the pain.?? Radiographs of the chest and left shoulder are unremarkable.?? Follow-up with primary care, may need further imaging MRI??or orthopedic follow-up if symptoms are persistent.?? Recommended continuation of physical therapy??as an outpatient. ??Tylenol ibuprofen as needed for pain. ??Discharge stable condition??with return precautions. Procedure No Qualifying Data Assessment/Plan 1.??Shoulder strain??S46.919A Ordered: Discharge Patient, 05/31/23 12:44:00 EDT, Home Independently, Constant Indicator ?? Orders: ibuprofen, 800 mg = 4 tab, Oral, Tab, Once, First Dose: 05/31/23 12:44:00 EDT, Stop Date: 05/31/23 12:44:00 EDT, Physician Stop, STAT Patient Education Shoulder Sprain Muscle Strain Follow Up With When Contact Information Leroy Case MD Within 1 month [facility] [address] [address]- Additional Instructions: Medication Reconciliation Unchanged acetaminophen (acetaminophen 650 mg oral tablet, extended release)2 tab Oral (given by mouth) 3 times a day as needed as needed for pain. not to exceed 6 tablets/da given to her by her hygiene teacher.. Refills: 1. ?? albuterol (albuterol 2.5 mg/3 mL (0.083%) inhalation solution)3 Milliliters Nebulized inhalation (inhale using nebulizer) 3 times a day as needed as needed for wheezing. Refills: 4. ?? albuterol (ProAir HFA 90 mcg/inh inhalation aerosol)1 Puffs Inhale (breathe in) every 6 hours as needed as needed for wheezing. Refills: 6. ?? albuterol (ProAir RespiClick 90 mcg/inh inhalation powder)1 EA, INHALE ONE PUFF BY MOUTH EVERY 6 HOURS NEEDED. ?? aspirin (aspirin 325 mg oral capsule)1 Capsules Oral (given by mouth) every day. ?? azithromycin (azithromycin 250 mg oral tablet)Take 2 tabs on day 1 and 1 tab on day 2-5. Refills: 0. ?? cholecalciferol (Vitamin D3 50,000 intl units oral capsule)1 Capsules Oral (given by mouth) every week. ?? clonazePAM (clonazePAM 0.5 mg oral tablet)1 tab Oral (given by mouth) every day as needed other (see comment). Take as needed for 90 days. ?? cyanocobalamin (Vitamin B12 5000 mcg oral tablet, disintegrating)1 tab Oral (given by mouth) every day. ?? dexamethasone (dexamethasone 0.5 mg/5 mL oral liquid)10 Milliliters Oral (given by mouth) 3 times aday for 10 Days. Refills: 0. ?? dulaglutide (Trulicity Pen 3 mg/0.5 mL subcutaneous solution)0.5 Milliliters Subcutaneous (under the skin) every week. rotate injection sites. ?? Durable Medical Equipment for Prescription (Compression stockings)3 pair 20- 30MMHGDX:(I80.9). Refills: 0. ?? Durable Medical Equipment for Prescription (Diabetic shoes)NEEDS NEW PAIR OF DIABETIC SHOES DX: E11.9. Refills: 0. ?? Durable Medical Equipment for Prescription (FreeStyle Lite Test Strips)Use one strip three times daily. Refills: 4. ?? fluconazole (Diflucan 100 mg oral tablet)1 tab one time dose. Refills: 0. ?? furosemide (furosemide 40 mg oral tablet)90 tab. ?? gabapentin (gabapentin 100 mg oral capsule)1 Capsules Oral (given by mouth) 3 times a day. Refills:0. ?? hydroxychloroquine (Plaquenil 200 mg oral tablet)2 Refill(s), TAKE 1 TABLET TWICE A DAY (EYE EXAM AT LEAST ONCE A YEAR WHILE ON THIS MEDICATION). ?? ibuprofen (ibuprofen 800 mg oral tablet)1 tab Oral (given by mouth) every 8 hours as needed as needed for pain. Refills: 0. ?? insulin glargine (Lantus Solostar Pen 100 units/mL subcutaneous solution)inject 30 units daily. ?? insulin pen needles 32G 4 mmSee instructions. 1 Refill(s), USE 5 PEN NEEDLES DIRECTED DAILY. ?? ipratropium-albuterol (ipratropium-albuterol CFC free 20 mcg-100 mcg/inh inhalation aerosol)1 PuffsInhale (breathe in) 4 times a day. Refills: 0. ?? lidocaine topical (lidocaine 2% mucous membrane solution)5 Milliliters Topical (on the skin) 3 times a day before meals. 2 Refill(s), make magic mouthwash mix with generic benadryl liquid 100ml and maalox 1:1:1 15ml of mixed solution swish and spit 4x/day. Refills: 2. ?? lisinopril (lisinopril 20 mg oral tablet)1 tab Oral (given by mouth) every day. Refills: 4. ?? ondansetron (!-Zofran ODT 4 mg oral tablet, disintegrating)1 tab Oral (given by mouth) every 6 hours as needed as needed for nausea/vomiting for 3 Days. Refills: 0. ?? rizatriptan (rizatriptan 10 mg oral tablet)TAKE ONE TABLET BY MOUTH EVERY DAY NEEDED FOR MIGRAINE. MAY REPEAT DOSE EVERY 2 HOURS FOR A MAXIMUM OF 3 TABLETS IN 24 HOURS. Refills: 3. ?? rOPINIRole (rOPINIRole 1 mg oral tablet)take 2 PO two hours before bedtime. Refills: 3. ?? torsemide (torsemide 20 mg oral tablet) ?? triamcinolone topical (triamcinolone 0.1% topical cream)1 Application Topical (on the skin) 2 timesa day. Apply a thin layer to the affected area(s). ?? venlafaxine (venlafaxine 150 mg oral tablet, extended release)1 tab Oral (given by mouth) every day. Refills: 0. ?? venlafaxine (venlafaxine 75 mg oral capsule, extended release)1 Capsules Oral (given by mouth) every day. Refills: 3. Problem List/Past Medical History Ongoing Acute maxillary sinusitis Asthma Atypical chest pain Back pain with right-sided sciatica Bipolar affective disorder, current episode depression Body mass index 30+ - obesity Body mass index 40+ - severely obese Cholelithiasis without obstruction Chronic diastolic heart failure Chronic fatigue syndrome Chronic kidney disease stage 3 Chronic kidney disease stage 3A Chronic pain syndrome Chronic rhinitis Chronic sinusitis Cough Depressed bipolar I disorder Depressive disorder Dizziness Dysphagia Dyspnea Fibromyalgia Gastroesophageal reflux disease Gout Heart failure with normal ejection fraction History of subarachnoid hemorrhage Hypercholesterolemia Hyperparathyroidism Hypertensive disorder Intertrigo Keratoconjunctivitis sicca, 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 complication of breast prosthesis Memory impairment Migraine without aura Muscle pain Obstructive sleep apnea syndrome Otalgia of left ear Otalgia of right ear Parasomnia Perforation of nasal septum Periodic limb movements of sleep Persistent insomnia Phlebitis of superficial veins of lower extremity Polyp of colon Restless legs Right Side Sciatica Sacroiliitis Sj??gren's syndrome Sore gums Superficial thrombophlebitis Trochanteric bursitis of left hip Type 2 diabetes mellitus without complication Type II diabetes mellitus uncontrolled Vaginal yeast infection Viral upper respiratory tract infection Vitamin D deficiency Historical Chronic kidney disease stage 2 Procedure/Surgical History ???Endoscopy (01/10/2021)???Colonoscopy (12/13/2020)???Removal impacted cerumen (separate procedure), one or both ears (05/24/2019)???ORIF - lateral malleolus of fibula with internal fixation (10/20/2018)???Nasal endoscopy, diagnostic, unilateral or bilateral (separate procedure) (03/16/2018)???Laryngoscopy, flexible fiberoptic; diagnostic (02/23/2018)???Removal procedure of implant body (06/13/2015)???Cataract Surgery (09/13/2014)???Cataract Surgery (08/23/2014)???Gastric bypass (10/13/2002)???Abdominoplasty (10/13/1999)???Breast reduction (10/13/1999)???Biopsy of breast (10/13/1993)??? section (05/14/1985)???Tonsillectomy Allergies Cat Hair??(Dyspnea, Other (See Comments)) clindamycin??(Diarrhoea) ALMOND??(Other) metFORMIN??(Unknown) mycophenolate mofetil??(Unknown) pilocarpine ophthalmic??(Unknown) sulfamethoxazole-trimethoprim??(Nausea) Ambien Bactrim Lortab acetaminophen-hydrocodone??(Abdominal pain) melatonin??(Hallucinations) zolpidem Social History Alcohol Current, 1-2 times per year Electronic Cigarette/Vaping Electronic Cigarette Use: Never. Substance Use Never Tobacco Former tobacco user Tobacco Use:. Family History Chronic obstructive lung disease: Father. Heart disease: Father. Myocardial infarction: Brother. Obesity: Father. Parkinsonism: Father. Electronically Signed on 05/31/23 12:45 PM Jhonatan Paris MD Emergency department Discharge instructions * Jhonatan Paris MD: PERFORM Event Display: ED Discharge Information Authored Date: [id number] AARON BHATT :1950 Age:72 years Sex:Female Visit Date:05/31/2023 Primary Care Physician: Leroy Case MD Discharge Instructions We would like to thank you for allowing us to assist you with your healthcare needs. The following includes patient education materials and information regarding your injury/illness. Diagnosis from Today's Visit Shoulder strain Discharge Vitals Temperature??(Temporal Artery) 97.2 ??F (36.2 ??C) Heart Rate??(Peripheral) 87 Respiratory Rate?? 18 Blood Pressure?? 149/67?? Height?? 62.20 in (158.000 cm) Weight??(Estimated) 195.03 lb (88.45 kg) Allergies Cat Hair??(Dyspnea, Other (See Comments)) clindamycin??(Diarrhoea) ALMOND??(Other) metFORMIN??(Unknown) mycophenolate mofetil??(Unknown) pilocarpine ophthalmic??(Unknown) sulfamethoxazole-trimethoprim??(Nausea) Ambien Bactrim Lortab acetaminophen-hydrocodone??(Abdominal pain) melatonin??(Hallucinations) zolpidem What to Do Next You Need to Schedule the Following Appointments Follow Up with??Leroy Case MD When:??Within 1 month Where: [facility] [address] [address]- Upcoming Scheduled Appointments Friday 3:30 PM EDT ?? You were treated today on an [...] How Much When Why Instructions Next Dose Unchanged acetaminophen (acetaminophen 650 mg oral tablet, extended release) 2 tab Oral (given by mouth) 3 times a day as needed for as needed for pain not to exceed 6 tablets/ da given to her by her hygiene teacher. ?? Unchanged albuterol (albuterol 2.5 mg/ 3 mL (0.083%) inhalation solution) 3 Milliliters Nebulized inhalation (inhale using nebulizer) 3 times a day as needed for as needed for wheezing Asthma Unchanged albuterol (ProAir HFA 90 mcg/ inh inhalation aerosol) 1 Puffs Inhale (breathe in) Every 6 hours as needed for as needed for wheezing Sinusitis Unchanged albuterol (ProAir RespiClick 90 mcg/ inh inhalation powder) 1 EA, INHALE ONE PUFF BY MOUTH EVERY 6 HOURS NEEDED ?? Unchanged aspirin (aspirin 325 mg oral capsule) 1 Capsules Oral (given by mouth) Every day Unchanged azithromycin (azithromycin 250 mg oral tablet) See instructions Bronchitis, acute Take 2 tabs on day 1 and 1 tab on day 2-5 ?? Unchanged cholecalciferol (Vitamin D3 50,000 intl units oral capsule) 1 Capsules Oral (given by mouth) Every week Unchanged clonazePAM (clonazePAM 0.5 mg oral tablet) 1 tab Oral (given by mouth) Every day as needed for other (see comment) Take as needed for 90 days ?? Unchanged cyanocobalamin (Vitamin B12 5000 mcg oral tablet, disintegrating) 1 tab Oral (given by mouth) Every day Unchanged dexamethasone (dexamethasone 0.5 mg/ 5 mL oral liquid) 10 Milliliters Oral (given by mouth) 3 times a day Duration: 10 Days Unchanged dulaglutide (Trulicity Pen 3 mg/ 0.5 mL subcutaneous solution) 0.5 Milliliters Subcutaneous (under the skin) Every week rotate injection sites ?? Unchanged Durable Medical Equipment for Prescription (Compression stockings) See instructions Phlebitis of superficial veins of lower extremity 3 pair [id number]:(I80.9) ?? Unchanged Durable Medical Equipment for Prescription (Diabetic shoes) See instructions Type 2 diabetes mellitus without complication NEEDS NEW PAIR OF DIABETIC SHOES DX: E11.9 ?? Unchanged Durable Medical Equipment for Prescription (FreeStyle Lite Test Strips) See instructions Type II diabetes mellitus uncontrolled Use one strip three times daily ?? Unchanged fluconazole (Diflucan 100 mg oral tablet) See instructions Vaginal yeast infection 1 tab one time dose ?? Unchanged furosemide (furosemide 40 mg oral tablet) 90 tab ?? Unchanged gabapentin (gabapentin 100 mg oral capsule) 1 Capsules Oral (given by mouth) 3 times a day Unchanged hydroxychloroquine (Plaquenil 200 mg oral tablet) 2 Refill(s), TAKE 1 TABLET TWICE A DAY (EYE EXAM AT LEAST ONCE A YEAR WHILE ON THIS MEDICATION) ?? Unchanged ibuprofen (ibuprofen 800 mg oral tablet) 1 tab Oral (given by mouth) Every 8 hours as needed for as needed for pain Back pain with right-sided sciatica Unchanged insulin glargine (Lantus Solostar Pen 100 units/ mL subcutaneous solution) See instructions inject 30 units daily ?? Unchanged insulin pen needles 32G 4 mm See instructions 1 Refill(s), USE 5 PEN NEEDLES DIRECTED DAILY ?? Unchanged ipratropium-albuterol (ipratropium-albuterol CFC free 20 mcg-100 mcg/ inh inhalation aerosol) 1 Puffs Inhale (breathe in) 4 times a day Bronchitis, acute Unchanged lidocaine topical (lidocaine 2% mucous membrane solution) 5 Milliliters Topical (on the skin) 3 times a day before meals 2 Refill(s), make magic mouthwash mix with generic benadryl liquid 100ml and maalox 1:1:1 15ml of mixed solution swish and spit 4x/ day ?? Unchanged lisinopril (lisinopril 20 mg oral tablet) 1 tab Oral (given by mouth) Every day Type II diabetes mellitus uncontrolled Sleep apnea Chronic kidney disease stage 3A Fibromyalgia Unchanged ondansetron (!-Zofran ODT 4 mg oral tablet, disintegrating) 1 tab Oral (given by mouth) Every 6 hours as needed for as needed for nausea/vomiting Asthma exacerbation Gastroenteritis Duration: 3 Days Unchanged rizatriptan (rizatriptan 10 mg oral tablet) See instructions TAKE ONE TABLET BY MOUTH EVERY DAY NEEDED FOR MIGRAINE. MAY REPEAT DOSE EVERY 2 HOURS FOR A MAXIMUM OF 3 TABLETS IN 24 HOURS ?? Unchanged rOPINIRole (rOPINIRole 1 mg oral tablet) See instructions Obstructive sleep apnea syndrome Periodic limb movements of sleep take 2 PO two hours before bedtime ?? Unchanged torsemide (torsemide 20 mg oral tablet) Unchanged triamcinolone topical (triamcinolone 0.1% topical cream) 1 Application Topical (on the skin) 2 times a day Apply a thin layer to the affected area(s) ?? Unchanged venlafaxine (venlafaxine 150 mg oral tablet, extended release) 1 tab Oral (given by mouth) Every day Depressive disorder Unchanged venlafaxine (venlafaxine 75 mg oral capsule, extended release) 1 Capsules Oral (given by mouth) Every day Depressive disorder Education Materials Shoulder Sprain A shoulder sprain is a partial or complete tear in one of the tough, fiber-like tissues (ligaments)in the shoulder. The ligaments in the shoulder help to hold the shoulder in place. What are the causes? This condition may be caused by: ? A fall. ? A hit to the shoulder. ? A twist of the arm. What increases the risk? You are more likely to develop this condition if you: ? Play sports. ? Have problems with balance or coordination. What are the signs or symptoms? Symptoms of this condition include: ? Pain when moving the shoulder. ? Limited ability to move the shoulder. ? Swelling and tenderness on top of the shoulder. ? Warmth in the shoulder. ? A change in the shape of the shoulder. ? Redness or bruising on the shoulder. How is this diagnosed? This condition is diagnosed with: ? A physical exam. During the exam, you may be asked to do simple exercises with your shoulder. ? Imaging tests such as X-rays, MRI, or a CT scan. These tests can show how severe the sprain is. How is this treated? This condition may be treated with: ? Rest. ? Pain medicine. ? Ice. ? A sling or brace. This is used to keep the arm still while the shoulder is healing. ? Physical therapy or rehabilitation exercises. These help to improve the range of motion and strength of the shoulder. ? Surgery (rare). Surgery may be needed if the sprain caused a joint to become unstable. Surgery may also be needed to reduce pain. Some people may develop ongoing shoulder pain or lose some range of motion in the shoulder. However, most people do not develop long-term problems. Follow these instructions at home: If you have a sling or brace: ? Wear the sling or brace as told by your health care provider. Remove it only as told by your healthcare provider. ? Loosen the sling or brace if your fingers tingle, become numb, or turn cold and blue. ? Keep the sling or brace clean. ? If the sling or brace is not waterproof: ? Do not let it get wet. ? Cover it with a watertight covering when you take a bath or shower. Activity ? Rest your shoulder. ? Move your arm only as much as told by your health care provider, but move your hand and fingers often to prevent stiffness and swelling. ? Return to your normal activities as told by your health care provider. Ask your health care provider what activities are safe for you. ? Ask your health care provider when it is safe for you to drive if you have a sling or brace on yourshoulder. ? If you were shown how to do any exercises, do them as told by your health care provider. General instructions ? If directed, put ice on the affected area. ? Put ice in a plastic bag. ? Place a towel between your skin and the bag. ? Leave the ice on for 20 minutes, 2???3 times a day. ? Take [id number] and prescription medicines only as told by your health care provider. ? Do not use any products that contain nicotine or tobacco, such as cigarettes, e- cigarettes, and chewing tobacco. These can delay healing. If you need help quitting, ask your health care provider. ? Keep all follow-up visits as told by your health care provider. This is important. Contact a health care provider if: ? Your pain gets worse. ? Your pain is not relieved with medicines. ? You have increased redness or swelling. Get help right away if: ? You have a fever. ? You cannot move your arm or shoulder. ? You develop severe numbness or tingling in your arm, hand, or fingers. ? Your arm, hand, or fingers feel cold and turn blue, white, or bal. Summary ? A shoulder sprain is a partial or complete tear in one of the tough, fiber-like tissues (ligaments)in the shoulder. ? This condition may be caused by a fall, a hit to the shoulder, or a twist of the arm. ? Treatment usually includes rest, ice, and pain medicine as needed. ? If you have a sling or brace, wear it as told by your health care provider. Remove it only as told by your health care provider. This information is not intended to replace advice given to you by your health care provider. Make sure you discuss any questions you have with your health care provider. Document Revised: 06/19/2022 Document Reviewed: 06/19/2022 [employer] Patient Education ?? 2022 [employer] Muscle Strain A muscle strain is an injury that occurs when a muscle is stretched beyond its normal length. Usually, a small number of muscle fibers are torn when this happens. There are three types of muscle strains. First-degree strains have the least amount of muscle fiber tearing and the least amount of pain. Second-degree and third-degree strains have more tearing and pain. Usually, recovery from muscle strain takes 1???2 weeks. Complete healing normally takes 5???6 weeks. What are the causes? This condition is caused when a sudden, violent force is placed on a muscle and stretches it too far. This may occur with a fall, while lifting, or during sports. What increases the risk? This condition is more likely to develop in athletes and people who are physically active. What are the signs or symptoms? Symptoms of this condition include: ? Pain. ? Tenderness. ? Bruising. ? Swelling. ? Trouble using the muscle. How is this diagnosed? This condition is diagnosed based on a physical exam and your medical history. Tests may also be done, including an X-ray, ultrasound, or MRI. How is this treated? This condition is initially treated with HUTCHINS therapy. This therapy involves: ? Protecting the muscle from being injured again. ? Resting the injured muscle. ? Icing the injured muscle. ? Applying pressure (compression) to the injured muscle. This may be done with a splint or elastic bandage. ? Raising (elevating) the injured muscle. Your health care provider may also recommend medicine for pain. Follow these instructions at home: If you have a removable splint: ? Wear the splint as told by your health care provider. Remove it only as told by your health care provider. ? Check the skin around the splint every day. Tell your health care provider about any concerns. ? Loosen the splint if your fingers or toes tingle, become numb, or turn cold and blue. ? Keep the splint clean. ? If the splint is not waterproof: ? Do not let it get wet. ? Cover it with a watertight covering when you take a bath or a shower. Managing pain, stiffness, and swelling ? If directed, put ice on the injured area. To do this: ? If you have a removable splint, remove it as told by your health care provider. ? Put ice in a plastic bag. ? Place a towel between your skin and the bag. ? Leave the ice on for 20 minutes, 2???3 times a day. ? Remove the ice if your skin turns bright red. This is very important. If you cannot feel pain, heat, or cold, you have a greater risk of damage to the area. ? Move your fingers or toes often to reduce stiffness and swelling. ? Raise (elevate) the injured area above the level of your heart while you are sitting or lying down. ? Wear an elastic bandage as told by your health care provider. Make sure that it is not too tight. General instructions ? Take bddj-cqm-[id number] and prescription medicines only as told by your health care provider. Treatment may include muscle relaxants or medicines for pain and inflammation that are taken by mouth or applied to the skin. ? Restrict your activity and rest the injured muscle as told by your health care provider. Gentle movements may be allowed. ? If physical therapy was prescribed, do exercises as told by your health care provider. ? Do not put pressure on any part of the splint until it is fully hardened. This may take several hours. ? Do not use any products that contain nicotine or tobacco. These products include cigarettes, chewing tobacco, and vaping devices, such as e-cigarettes. If you need help quitting, ask your health careprovider. ? Ask your health care provider when it is safe to drive if you have a splint. ? Keep all follow-up visits. This is important. How is this prevented? Warm up before exercising. This helps to prevent future muscle strains. Contact a health care provider if: ? You have more pain or swelling in the injured area. Get help right away if: ? You have numbness or tingling in the injured area. ? You lose a lot of strength in the injured area. Summary ? A muscle strain is an injury that occurs when a muscle is stretched beyond its normal length. ? This condition is caused when a sudden, violent force is placed on a muscle and stretches it too far. ? This condition is initially treated with HUTCHINS therapy, which involves protecting, resting, icing, compressing, and elevating. ? Gentle movements may be allowed. If physical therapy was prescribed, do exercises as told by your health care provider. This information is not intended to replace advice given to you by your health care provider. Make sure you discuss any questions you have with your health care provider. Document Revised: 12/17/2021 Document Reviewed: 12/17/2021 [employer] Patient Education ?? 2022 [employer] Patient/Two Needle Machine Operator Signature Patient Name:AARON BHATT I have received this information and my questions have been answered. Patient/Two Needle Machine Operator Name: Patient/Two Needle Machine Operator Signature: Relationship to Patient: Witness Name/Signature: Date: Electronically Signed on: 05/31/2023 12:45 EDTSigned by:TRM Discharge summary * Ashli Schaeffer: PERFORM Event Display: Discharge Note Authored Date: * Ashli Schaeffer: PERFORM Event Display: Discharge Note Authored Date: Diagnosis: 1. Shoulder strain Comment: Diagnosis: Shoulder pain-swelling Comment: Electronically Signed on 05/31/23 12:52 PM Ashli Schaeffer Patient Care team information Care Team Personnel Name: Leroy Case MD Position: Physician Member Role: Informed Provider Address: Address: [address] Name: Karuna Ferguson Position: Nurse Member Role: ED Nurse Name: Jhonatan Paris MD Position: Physician Member Role: ED Physician Address: Address: [facility] [address] [place], [place] [address] Care Team Related Persons Name: JERED STUBBS Name: VICKIE BHATT III Address: [address] [id number]
--- OUTSIDE RECORDS SUMMARY | 2023-11-24 02:04 | XMS_ITS | Continuity of Care Document ---
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 Phone Leroy Case Primary Care Physician Encounter [facility] Date(s): 06/20/23 - 06/20/[address] [address] Discharge Disposition: Home or Self Care Attending Physician: Dede Woodward MD Admitting Physician: Dede Woodward MD Referring Physician: Dede Woodward MD Allergies, Adverse Reactions, Alerts Substance Reaction [...] Severe Active Assessment and Plan Future Appointments Diagnostic Tests Pending * Vitamin D, 25-OH Total [facility] 06/20/23 Future Scheduled Tests Radiology* MRI Spine Lumbar [...] Comment: Unit: Unknown 3Result Comment: Unit: Unknown 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[employer] Medications !-Zofran ODT 4 mg oral tablet, disintegrating 4 mg = 1 tab, Oral, every 6 hr, PRN as needed for nausea/vomiting, # 12 tab, 0 Refill(s), Pharmacy:[facility], 157.4, cm, 02/01/23 10:28:00 EDT, Height/Length Dosing, 95.7, kg, 02/01/23 10:28:00 EDT, Weight Dosing Start Date: 02/01/23 Stop Date: 02/04/23 Status: Ordered acetaminophen 650 mg oral tablet, extended release 1,300 mg = 2 tab, Oral, TID, PRN as needed for pain, not to exceed 6 tablets/da given to her by herrheumatologist., # 100 tab, 1 Refill(s), Pharmacy: [facility], 157.4, cm, 02/01/23 10:28:00 EDT, Height/Length Dosing, 95.7, kg, 02/01/23 10:28:00 EDT, Weight Dosing Start Date: 05/20/23 Status: Ordered albuterol 2.5 mg/3 mL (0.083%) inhalation solution 2.5 mg = 3 mL, NEB, TID, PRN as needed for wheezing, # 810 mL, 4 Refill(s), Pharmacy: [facility], 157, cm, 10/04/22 11:31:00 EST, Height/Length [...] TID, # 300 mL, 0 Refill(s), Pharmacy: [facility], 157.4, cm, 02/01/2310:28:00 EDT, Height/Length Dosing, [...] dose, # 1 tab, 0 Refill(s), Pharmacy: [facility], 157.4,cm, 02/01/23 10:28:00 EDT, Height/Length Dosing, 95.7, kg, 02/01/23 10:28:00 EDT, Weight Dosing Start Date: 05/26/23 Status: Ordered ferrous sulfate 325 mg (65 mg elemental iron) oral delayed release tablet 325 mg = 1 tab, Oral, Daily, # 90 tab, 3 Refill(s), Pharmacy: [facility], 158, cm, 05/31/23 11:18:00 EDT, Height/Length Dosing, 88.45, kg, 05/31/23 11:18:00 EDT, Weight Dosing Start Date: 06/02/23 Status: Ordered FreeStyle Lite Test Strips FreeStyle Lite Test Strips, Use one strip three times daily, Supply, See instructions, # 300 EA, 4 Refill(s), Pharmacy: [facility] Start Date: 02/05/23 Status: Ordered furosemide 40 mg oral tablet 90 tab, 0 Refill(s) Start Date: 11/24/22 Status: Ordered gabapentin 100 mg oral capsule 100 mg = 1 cap, Oral, TID, # 270 cap, 3 Refill(s), Pharmacy: [facility], 158, cm, 05/31/23 11:18:00 EDT, Height/Length Dosing, 88.45, kg, 05/31/23 11:18:00 EDT, Weight Dosing Start Date: 06/02/23 Status: Ordered ibuprofen 800 mg oral tablet 800 mg = 1 tab, Oral, every 8 hr, PRN as needed for pain, # 30 tab, 0 Refill(s), Pharmacy: [facility], 157.4, cm, 02/01/23 10:28:00 EDT, Height/Length [...] QID, # 4 g, 0 Refill(s), Pharmacy: [facility], 157.4, cm, 02/01/23 10:28:00 EDT, Height/Length [...] 4x/day, # 100 mL, 2 Refill(s), Pharmacy: [facility], 157.4, cm, 02/01/23 10:28:00 EDT, Height/Length Dosing, 95.7, kg, 02/01/23 10:28:00 EDT, Weight Dosing Start Date: 04/17/23 Status: Ordered lisinopril 20 mg oral tablet 20 mg = 1 tab, Oral, Daily, # 30 tab, 4 Refill(s), Pharmacy: [facility], 157, cm, 10/04/22 11:31:00 EST, Height/Length Dosing, 98, kg, 10/04/22 11:31:00 EST, Weight Dosing Start Date: 11/27/22 Status: Ordered Neupro 2 mg/24 hr transdermal film, extended release 1 patches, Topical, Daily, # 30 patches, 5 Refill(s), Pharmacy: [facility], 158, cm, 05/31/23 11:18:00 EDT, Height/Length Dosing, 88.45, kg, 05/31/23 11:18:00 EDT, Weight Dosing Start Date: 06/20/23 Status: Ordered Plaquenil 200 mg oral tablet 2 Refill(s), TAKE 1 TABLET TWICE A DAY (EYE EXAM AT LEAST ONCE A YEAR WHILE ON THIS MEDICATION), 0 Refill(s) Start Date: 11/24/22 Status: Ordered ProAir HFA 90 mcg/inh inhalation aerosol 1 puffs, Inhale, every 6 hr, PRN as needed for wheezing, # 8.5 g, 6 Refill(s), Pharmacy: [facility], 157.4, cm, 02/01/23 10:28:00 EDT, Height/Length [...] HOURS, # 12 tab, 3 Refill(s), Pharmacy: [facility], 157.4, cm, 02/01/23 10:28:00 EDT, Height/Length [...] DAY, # 90 cap, 3 Refill(s), Pharmacy: [facility], 158, cm, 05/31/23 11:18:00 EDT, Height/Length Dosing, 88.45, kg, 05/31/23 11:18:00 EDT, Weight Dosing Start Date: 06/03/23 Status: Ordered venlafaxine 75 mg oral capsule, extended release 75 mg = 1 cap, Oral, Daily, # 90 cap, 3 Refill(s), Pharmacy: [facility], 158, cm, 05/31/23 11:18:00 EDT, [...] polyps, mild diverticulosis. 1st one done in [place] years ago pt reports polyps removed 3L distal fibula 4Patient reported metal in left foot and metal in back Results Laboratory List Name Date PTH Intact [facility] 06/20/23 Most recent to oldest [Reference Range]: 1 PTH Intact [facility] [19-88 pg/mL] 203 pg/mL 1 *HI* (06/20/23 2:34 PM) 1Result Comment: Test performed [place] [address] Social History Social History Type Response Tobacco Former tobacco user Tobacco Use:. Sex Female Patient Care team information Care Team Personnel Name: Leroy Case MD Position: Physician Member Role: Informed Provider Address: Address: [address] [address]- Care Team Related Persons Name: JERED STUBBS Name: VICKIE BHATT III Address: Home [address] [place] [address], [phone]
--- OUTSIDE RECORDS SUMMARY | 2023-11-24 02:04 | XMS_ITS | Continuity of Care Document ---
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 Phone Leroy Case Primary Care Physician Encounter [facility] Date(s): 01/30/23 - 01/30/[address] [address] Discharge Disposition: Home or Self Care Attending Physician: Leroy Case MD Admitting Physician: Leroy Case MD Referring Physician: Leroy Case MD Allergies, Adverse Reactions, Alerts Substance Reaction [...] Plan Future Appointments Diagnostic Tests Pending * Generic Orderable [facility] 01/30/23 Future Scheduled Tests Radiology* MRI Spine Lumbar [...] Comment: Unit: Unknown 3Result Comment: Unit: Unknown 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[employer] 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 albuterol 2.5 mg/3 mL (0.083%) inhalation solution 2.5 mg = 3 mL, NEB, TID, PRN as needed for wheezing, # 810 mL, 4 Refill(s), Pharmacy: [facility], 157, cm, 10/04/22 11:31:00 EST, Height/Length Dosing, 98, kg, 10/04/22 11:31:00 EST, WeightDosing Start Date: 10/09/22 Status: Ordered aspirin 325 mg oral capsule 325 mg = 1 cap, Oral, Daily, # 30 cap, 0 Refill(s) Start Date: 03/14/22 Status: Ordered cefdinir 300 mg oral capsule 300 mg = 1 cap, Oral, every 12 hr, # 20 cap, 0 Refill(s), Pharmacy: [facility], 157, cm, 01/01/23 4:18:00 EDT, Height/Length [...] improvement., # 2 tab, 0 Refill(s), Pharmacy: [facility], 157, cm, 01/01/23 4:18:00 EDT, Height/Length Dosing, 98.8, kg, 01/01/23 4:18:00 EDT, Weight Dosing Start Date: 01/13/23 Status: Ordered Diflucan 150 mg oral tablet 150 mg = 1 tab, Oral, Once, repeat dose in 72 hours, # 2 tab, 0 Refill(s), Pharmacy: [facility], 157, cm, 10/04/22 11:31:00 EST, Height/Length Dosing, 98, kg, 10/04/22 11:31:00 EST, Weight Dosing Start Date: 12/31/22 Status: Ordered furosemide 40 mg oral tablet 90 tab, 0 Refill(s) Start Date: 11/24/22 Status: Ordered gabapentin 100 mg oral capsule 100 mg = 1 cap, Oral, TID, # 90 cap, 3 Refill(s), Pharmacy: [facility], 157, cm, 10/04/2211:31:00 EST, Height/Length Dosing, [...] pain, # 30 tab, 0 Refill(s), Pharmacy: [facility], 157.48, cm, 05/13/22 10:43:00 EDT, Height/Length [...] Daily, # 30 tab, 4 Refill(s), Pharmacy: [facility], 157, cm, 10/04/22 11:31:00 EST, Height/Length [...] wheezing, # 8.5 g, 1 Refill(s), Pharmacy: [facility], 157.48, cm, 05/13/22 10:43:00 EDT, Height/Length [...] hours, # 12 tab, 1 Refill(s), Pharmacy: [facility], 157, cm, 10/04/22 11:31:00 EST, Height/Length Dosing, 98, kg, 1... Start Date: 12/17/22 Status: Ordered rOPINIRole 1 mg oral tablet See Instructions, take 1 PO two hours before bedtime, # 90 tab, 1 Refill(s), Pharmacy: [facility], 157, cm, 10/04/22 11:31:00 EST, Height/Length [...] pain, # 28 tab, 0 Refill(s), Pharmacy: [facility] Start Date: 03/14/22 Status: Ordered traZODone [...] Daily, # 30 tab, 0 Refill(s), Pharmacy: [facility], 157, cm, 10/04/22 11:31:00 EST, Height/Length Dosing, 98, kg, 10/04/22 11:31:00 EST, Weight Dosing Start Date: 11/14/22 Status: Ordered venlafaxine 75 mg oral capsule, extended release 75 mg = 1 cap, Oral, Daily, # 30 cap, 0 Refill(s), Pharmacy: [facility], 157, cm, 10/04/22 11:31:00 EST, Height/Length [...] polyps, mild diverticulosis. 1st one done in [place] years ago pt reports polyps removed 3L distal fibula 4Patient reported metal in left foot and metal in back Results Laboratory List Name Date Hemoglobin A1c 01/30/23 Most recent to oldest [Reference Range]: 1 Hemoglobin A1c [4.0-6.0 %] sent to [facility] % *NA* (01/30/23 8:29 AM) Social History Social History Type Response Tobacco Former tobacco user Tobacco Use:. Sex Female Patient Care team information Care Team Personnel Name: Leroy Case MD Position: Physician Member Role: Informed Provider Address: Address: [address] Care Team Related Persons Name: JERED STUBBS Name: VICKIE BHATT III Address: Home [address] [place] [id number]
--- OUTSIDE RECORDS SUMMARY | 2023-11-24 02:04 | XMS_ITS | Continuity of Care Document ---
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 Role Phone Leroy Case Primary Care Physician Encounter [facility] Date(s): 12/15/22 - 12/15/[address] [address] Discharge Disposition: Home or Self Care Attending Physician: 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 DIGITAL MEDIA INTERN Admitting Physician: 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 DIGITAL MEDIA INTERN Referring Physician: 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 DIGITAL MEDIA INTERN Allergies, Adverse Reactions, Alerts Substance Reaction Severity [...] Comment: Unit: Unknown 3Result Comment: Unit: Unknown 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[employer] Medications !-Augmentin 875 mg-125 mg oral tablet 1 tab, Oral, every 12 hr, # 60 tab, 0 Refill(s), Pharmacy: [facility], 157, cm, 10/04/22 11:31:00 EST, Height/Length Dosing, 98, kg, 10/04/22 11:31:00 EST, Weight Dosing Start Date: 11/27/22 Status: Ordered albuterol 2.5 mg/3 mL (0.083%) inhalation solution 2.5 mg = 3 mL, NEB, TID, PRN as needed for wheezing, # 810 mL, 4 Refill(s), Pharmacy: [facility], 157, cm, 10/04/22 11:31:00 EST, Height/Length Dosing, 98, kg, 10/04/22 11:31:00 EST, WeightDosing Start Date: 10/09/22 Status: Ordered amoxicillin-clavulanate 875 mg-125 mg oral tablet 20 EA, TAKE ONE TABLET BY MOUTH EVERY 12 HOURS FOR 10 DAYS, 0 Refill(s) Start Date: 11/24/22 Status: Ordered aspirin 325 mg oral capsule [...] TID, # 90 cap, 3 Refill(s), Pharmacy: [facility], 157, cm, 10/04/2211:31:00 EST, Height/Length Dosing, [...] pain, # 30 tab, 0 Refill(s), Pharmacy: [facility], 157.48, cm, 05/13/22 10:43:00 EDT, Height/Length [...] Daily, # 30 tab, 4 Refill(s), Pharmacy: [facility], 157, cm, 10/04/22 11:31:00 EST, Height/Length [...] 0 Refill(s) Start Date: 11/24/22 Status: Ordered Mounjaro 2.5 mg/0.5 mL subcutaneous solution 2.5 mg =, Subcutaneous, every week, rotate injection sites, # 4 EA, 1 Refill(s), Pharmacy: [facility], 157, cm, 10/04/22 11:31:00 EST, Height/Length Dosing, 98, kg, 10/04/22 11:31:00 EST, Weight Dosing Start Date: 12/12/22 Stop Date: 02/06/23 Status: Ordered Nucala Prefilled Autoinjector 100 mg/mL [...] wheezing, # 8.5 g, 1 Refill(s), Pharmacy: [facility], 157.48, cm, 05/13/22 10:43:00 EDT, Height/Length [...] hours, # 12 tab, 1 Refill(s), Pharmacy: [email or web address] Start Date: 04/26/22 Status: Ordered [...] pain, # 28 tab, 0 Refill(s), Pharmacy: [facility] Start Date: 03/14/22 Status: Ordered traZODone [...] Daily, # 30 tab, 0 Refill(s), Pharmacy: [facility], 157, cm, 10/04/22 11:31:00 EST, Height/Length Dosing, 98, kg, 10/04/22 11:31:00 EST, Weight Dosing Start Date: 11/14/22 Status: Ordered venlafaxine 75 mg oral capsule, extended release 75 mg = 1 cap, Oral, Daily, # 30 cap, 0 Refill(s), Pharmacy: [facility], 157, cm, 10/04/22 11:31:00 EST, Height/Length [...] 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 1st one done in [place] years ago pt reports polyps removed 3L distal fibula 4Patient reported metal in left foot and metal in back Social History Social History Type Response Tobacco Former tobacco user Tobacco Use:. Sex Female Patient Care team information Care Team Personnel Name: Leroy Case MD Position: Physician Member Role: Informed Provider Address: Address: [address] Care Team Related Persons Name: JERED STUBBS Address: Home Name: VICKIE BHATT III Address: Home [address] [place] [address], [phone]
--- OUTSIDE RECORDS SUMMARY | 2023-11-24 02:04 | XMS_ITS | Continuity of Care Document ---
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 Phone Leroy Case Primary Care Physician [phone] [facility]counter [facility] Date[facility] 09/04/22 - 09/04/[address] [address] Discharge Disposition: Home or Self Care Attending Physician: Leroy Case MD Admitting Physician: Leroy Case MD Referring Physician: Leroy Case MD Allergies, Adverse Reactions, Alerts Substance Reaction Severity Status ALMOND Other Moderate Active clindamycin Diarrhoea Severe Active sulfamethoxazole-trimethoprim Nausea Moderate Active zolpidem Unknown Active acetaminophen-hydrocodone Abdominal pain Unknown Active melatonin Hallucinations Unknown Active Bactrim Unknown Active Ambien Unknown Active Lortab Unknown Active Assessment and Plan Future Appointments Immunizations Given and Recorded Vaccine Date Status [...] hr, # 20 tab, 0 Refill(s), Pharmacy: [facility], 157.48, cm, 05/13/22 10:43:00 EDT, Height/Length Dosing, 99.79, kg, 05/13/22 10:43:00 EDT, Weight Dosing Start Date: 09/04/22 Stop Date: 09/14/22 Status: Ordered aspirin 325 mg oral capsule 325 mg = 1 cap, Oral, Daily, # 30 cap, 0 Refill(s) Start Date: 03/14/22 Status: Ordered azaTHIOprine 50 mg oral tablet 0 Refill(s) Start Date: 03/13/22 Status: Ordered clonazePAM 0.5 mg oral tablet [...] Daily, # 90 tab, 4 Refill(s), Pharmacy: [facility] Start Date: 03/21/22 Status: Ordered gabapentin 100 mg oral capsule 100 mg = 1 cap, Oral, TID, TAKE ONE CAPSULE BY MOUTH THREE TIMES A DAY, # 90 cap, 3 Refill(s), Pharmacy: [facility], 157.48, cm, 05/13/22 10:43:00 EDT, Height/Length Dosing, 99.79, kg, 05/13/22 10:43:00 EDT, Weight Dosing Start Date: 05/27/22 Status: Ordered gabapentin 100 mg oral capsule 100 mg = 1 cap, Oral, TID, # 90 cap, 4 Refill(s), Pharmacy: [facility], 157.48, cm, 05/13/22 10:43:00 EDT, Height/Length [...] pain, # 30 tab, 0 Refill(s), Pharmacy: [facility], 157.48, cm, 05/13/22 10:43:00 EDT, Height/Length [...] 0 Refill(s) Start Date: 03/14/22 Status: Ordered PLAQUENIL 200 MG TABLET PLAQUENIL 200 MG TABLET, 0 Refill(s) Start Date: 03/13/22 Status: Ordered predniSONE 5 mg oral tablet Tapered dose Start Date: 05/18/21 Status: Ordered rizatriptan 10 mg oral tablet 10 mg = 1 tab, Oral, Daily, PRN as needed for migraine headache, may repeat dose every 2 hours up to a maximum of 30 mg in 24 hours, # 12 tab, 1 Refill(s), Pharmacy: [facility] Start Date: 04/26/22 Status: Ordered [...] pain, # 28 tab, 0 Refill(s), Pharmacy: [facility] Start Date: 03/14/22 Status: Ordered triamcinolone [...] Daily, # 90 tab, 4 Refill(s), Pharmacy: [facility] Start Date: 03/21/22 Stop Date: [...] in back Results Laboratory List Name Date Basic Metabolic Panel (BMP) 09/04/22 Hemoglobin A1c 09/04/22 Most recent to oldest [Reference Range]: 1 BUN [7-18 mg/dL] 39 mg/dL *HI* (09/04/22 1:46 PM) Glucose Level [74-106 mg/dL] 278 mg/dL *HI* (09/04/22 1:46 PM) Potassium Level [3.5-5.1 mmol/L] 4.1 mmo l/L (09/04/22 1:46 PM) Sodium Level [136-145 mmol/L] 136 mmol/L (09/04/22 1:46 PM) Calcium Level [8.5-10.1 mg/dL] 9.1 mg/dL (09/04/22 1:46 PM) CO2 [21-32 mmol/L] 33 mmol/L *HI* (09/04/22 1:46 PM) eGFR Non-AA [>=60] 43 *LOW* (09/04/22 1:46 PM) eGFR AA [>=60] 43 *LOW* (09/04/22 1:46 PM) Hemoglobin A1c [4.0-6.0 %] 9.3 % *HI* (09/04/22 1:46 PM) Chloride Level [98-107 mmol/L] 97 mmol/L *LOW* (09/04/22 1:46 PM) Creatinine Level [0.55-1.02 mg/dL] 1.33 mg/dL *HI* (09/04/22 1:46 PM) Social History Social History Type Response Tobacco Former tobacco user Tobacco Use:. Sex Female Patient Care team information Personnel Name: Leroy Case MD Address: Address: [address]
--- OUTSIDE RECORDS SUMMARY | 2023-11-24 02:04 | XMS_ITS | Continuity of Care Document ---
Author Name Unknown Organization [facility] Address [address] [place] [address] Care Team Providers Care Track Repairer Name Role Phone Leroy Case Primary Care Physician [phone] Encounter [facility] Date(s): 07/25/23 - 07/25/[address] [address] Encounter Diagnosis Shoulder injury(Discharge Diagnosis) - 07/25/23 Discharge Disposition: Home or Self Care Attending Physician: Cecy Barrett MD Admitting Physician: Cecy Barrett MD Allergies, Adverse Reactions, Alerts Substance Reaction [...] Plan Extracted from: Title:Clinical Document Author:Ashli Schaeffer te:07/25/23 Diagnosis: 1. 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[employer] Medications !-Zofran ODT 4 mg oral tablet, disintegrating 4 mg = 1 tab, Oral, every 6 hr, PRN as needed for nausea/vomiting, # 12 tab, 0 Refill(s), Pharmacy:[facility], 157.4, cm, 02/01/23 10:28:00 EDT, Height/Length Dosing, 95.7, kg, 02/01/23 10:28:00 EDT, Weight Dosing Start Date: 02/01/23 Stop Date: 02/04/23 Status: Ordered acetaminophen 650 mg oral tablet, extended release 1,300 mg = 2 tab, Oral, TID, PRN as needed for pain, not to exceed 6 tablets/da given to her by herrheumatologist., # 100 tab, 1 Refill(s), Pharmacy: [facility], 157.4, cm, 02/01/23 10:28:00 EDT, Height/Length Dosing, 95.7, kg, 02/01/23 10:28:00 EDT, Weight Dosing Start Date: 05/20/23 Status: Ordered albuterol 2.5 mg/3 mL (0.083%) inhalation solution 2.5 mg = 3 mL, NEB, TID, PRN as needed for wheezing, # 810 mL, 4 Refill(s), Pharmacy: [facility], 157, cm, 10/04/22 11:31:00 EST, Height/Length [...] 0 Refill(s), 08/04/23 1:02:00 PM CDT, Pharmacy: [facility], 154.94, cm, 07/25/23 13:45:00 EDT, Height/Length Dosing, 89.63, kg, 07/25/23 13:45:00 EDT, Weight Dosing Start Date: 07/25/23 Stop Date: 08/04/23 Status: Ordered dexamethasone 0.5 mg/5 mL oral liquid 1 mg = 10 mL, Oral, TID, # 300 mL, 0 Refill(s), Pharmacy: [facility], 157.4, cm, 02/01/2310:28:00 EDT, Height/Length Dosing, [...] dose, # 1 tab, 0 Refill(s), Pharmacy: [facility], 157.4,cm, 02/01/23 10:28:00 EDT, Height/Length Dosing, 95.7, kg, 02/01/23 10:28:00 EDT, Weight Dosing Start Date: 05/26/23 Status: Ordered ferrous sulfate 325 mg (65 mg elemental iron) oral delayed release tablet 325 mg = 1 tab, Oral, Daily, # 90 tab, 3 Refill(s), Pharmacy: [facility], 158, cm, 05/31/23 11:18:00 EDT, Height/Length Dosing, 88.45, kg, 05/31/23 11:18:00 EDT, Weight Dosing Start Date: 06/02/23 Status: Ordered FreeStyle Lite Test Strips FreeStyle Lite Test Strips, Use one strip three times daily, Supply, See instructions, # 300 EA, 4 Refill(s), Pharmacy: [facility] Start Date: 02/05/23 Status: Ordered furosemide 40 mg oral tablet 90 tab, 0 Refill(s) Start Date: 11/24/22 Status: Ordered gabapentin 100 mg oral capsule 100 mg = 1 cap, Oral, TID, # 270 cap, 3 Refill(s), Pharmacy: [facility], 158, cm, 05/31/23 11:18:00 EDT, Height/Length Dosing, 88.45, kg, 05/31/23 11:18:00 EDT, Weight Dosing Start Date: 06/02/23 Status: Ordered ibuprofen 800 mg oral tablet 800 mg = 1 tab, Oral, every 8 hr, PRN as needed for pain, # 30 tab, 0 Refill(s), Pharmacy: [facility], 157.4, cm, 02/01/23 10:28:00 EDT, Height/Length [...] QID, # 4 g, 0 Refill(s), Pharmacy: [facility], 157.4, cm, 02/01/23 10:28:00 EDT, Height/Length [...] 4x/day, # 100 mL, 2 Refill(s), Pharmacy: [facility], 157.4, cm, 02/01/23 10:28:00 EDT, Height/Length Dosing, 95.7, kg, 02/01/23 10:28:00 EDT, Weight Dosing Start Date: 04/17/23 Status: Ordered lisinopril 20 mg oral tablet 20 mg = 1 tab, Oral, Daily, # 30 tab, 4 Refill(s), Pharmacy: [facility], 157, cm, 10/04/22 11:31:00 EST, Height/Length Dosing, 98, kg, 10/04/22 11:31:00 EST, Weight Dosing Start Date: 11/27/22 Status: Ordered Neupro 2 mg/24 hr transdermal film, extended release 1 patches, Topical, Daily, # 90 patches, 3 Refill(s), Pharmacy: [facility], 158,cm, 05/31/23 11:18:00 EDT, Height/Length Dosing, 88.45, kg, 05/31/23 11:18:00 EDT, Weight Dosing Start Date: 07/16/23 Status: Ordered oxyCODONE 5 mg oral tablet 5 mg = 1 tab, Oral, every 4 hr, PRN as needed for pain, # 12 tab, 0 Refill(s), 07/25/24 1:03:00 PM CDT, Pharmacy: [facility], 154.94, cm, 07/25/23 13:45:00 EDT, Height/Length [...] wheezing, # 8.5 g, 6 Refill(s), Pharmacy: [facility], 157.4, cm, 02/01/23 10:28:00 EDT, Height/Length [...] HOURS, # 12 tab, 3 Refill(s), Pharmacy: [facility], 157.4, cm, 02/01/23 10:28:00 EDT, Height/Length [...] DAY, # 90 cap, 3 Refill(s), Pharmacy: [facility], 158, cm, 05/31/23 11:18:00 EDT, Height/Length Dosing, 88.45, kg, 05/31/23 11:18:00 EDT, Weight Dosing Start Date: 06/03/23 Status: Ordered venlafaxine 75 mg oral capsule, extended release 75 mg = 1 cap, Oral, Daily, # 90 cap, 3 Refill(s), Pharmacy: [facility], 158, cm, 05/31/23 11:18:00 EDT, [...] polyps, mild diverticulosis. 1st one done in [place] years ago pt reports polyps removed 3L distal fibula 4Patient reported metal in left foot and metal in back Vital Signs Most recent to oldest [Reference Range]: 1 Temperature Temporal Artery [36-38 Deg C ] 36.3 Deg C (07/25/23 1:34 PM) Peripheral Pulse Rate [60-100 bpm] 79 bp m (07/25/23 1:34 PM) Respiratory Rate [12-24 br/min] 18 br/mi n (07/25/23 1:34 PM) Blood Pressure [90-140/60-90 mmHg] 132/6 4mmHg (07/25/23 1:34 PM) Weight Dosing 89.63 kg (07/25/23 1:45 PM) Weight Estimated 89.63 kg (07/25/23 1:34 PM) Height/Length Dosing 154.940 cm (07/25/23 1:45 PM) Height/Length Estimated 154.940 cm (07/25/23 1:34 PM) Social History Social History Type Response Tobacco Former tobacco user Tobacco Use:. Sex Female Hospital Discharge Instructions Patient Education 07/25/2023 13:16:22 Shoulder Pain Shoulder Pain Many things can cause shoulder pain, including: ??? An injury to the shoulder. ??? Overuse of the shoulder. ??? Arthritis. The source of the pain can be: ??? Inflammation. ??? An injury to the shoulder joint. ??? An injury to a tendon, ligament, or bone. Follow these instructions at home: Pay attention to changes in your symptoms. Let your health care provider know about them. Follow these instructions to relieve your pain. If you have a sling: ??? Wear the sling as told by your health care provider. Remove it only as told by your health careprovider. ??? Loosen the sling if your fingers tingle, become numb, or turn cold and blue. ??? Keep the sling clean. ??? If the sling is not waterproof: ??? Do not let it get wet. Remove it to shower or bathe. ??? Move your arm as little as possible, but keep your hand moving to prevent swelling. Managing pain, stiffness, and swelling ??? If directed, put ice on the painful area: ??? Put ice in a plastic bag. ??? Place a towel between your skin and the bag. ??? Leave the ice on for 20 minutes, 2???3 times per day. Stop applying ice if it does not help with the pain. ??? Squeeze a soft ball or a foam pad as much as possible. This helps to keep the shoulder from swelling. It also helps to strengthen the arm. General instructions ??? Take lgdw-zzz-[id number] and prescription medicines only as told by your health care provider. ??? Keep all follow-up visits as told by your health care provider. This is important. Contact a health care provider if: ??? Your pain gets worse. ??? Your pain is not relieved with medicines. ??? New pain develops in your arm, hand, or fingers. Get help right away if: ??? Your arm, hand, or fingers: ??? Tingle. ??? Become numb. ??? Become swollen. ??? Become painful. ??? Turn white or blue. Summary ??? Shoulder pain can be caused by an injury, overuse, or arthritis. ??? Pay attention to changes in your symptoms. Let your health care provider know about them. ??? This condition may be treated with a sling, ice, and pain medicines. ??? Contact your health care provider if the pain gets worse or new pain develops. Get help right away if your arm, hand, or fingers tingle or become numb, swollen, or painful. ??? Keep all follow-up visits as told by your health care provider. This is important. This information is not intended to replace advice given to you by your health care provider. Make sure you discuss any questions you have with your health care provider. Document Revised: 06/14/2022 Document Reviewed: 06/14/2022 Elsevier Patient Education ?? 2022 [employer] Follow Up Care 07/25/2023 13:34:00 With:Follow up with primary care provider Address: When:1 to 2 weeks Physician Emergency department Note * Cecy Barrett MD: PERFORM Event Display: ED Note Physician Authored Date: [id number] AARON BHATT :1950 Age:72 years Sex:Female Visit Date:07/25/2023 Primary Care Physician: Leroy Case MD Basic Information Time Seen: Cecy Barrett MD / 07/25/2023 13:46 Chief Complaint Patient waiting on MRI of left shoulder from a previous injury. Was picking something heavy up when felt a snapand a burning sensation in arm. History Of Present Illness: Patient has some shoulder issues she is followed by orthopedics pt has an mri scheduled pt had picked up a case of beer for her this a.m. and heard a pop in her left shoulder with now pain. no new tingling or numbness, no new swelling.?? Review of Systems: see hpi for ros Physical Exam Vitals & Measurements T:??36.3?C ??(Temporal Artery)?? HR:??79??(Peripheral)?? RR:??18?? BP:??132/64?? SpO2:??100%?? HT:??154.940??cm?? WT:??89.63??kg??(Estimated)?? Pain Score:??8?? O2 Therapy:??Room air?? General: Alert and oriented, well nourished,?No??acute distress Eye: PER,?Normal??conjunctiva, No scleral icterus HENT: Normocephalic?Normal?? hearing?? Respiratory:??Respiration??no distress??no increased work of breathing Heart:??Capillary refill less than 2 seconds??no??edema Chest: wall excursion wnl no abnormal movements no obvious deformities Musculoskeletal:?Normal?? range of motion and strength??except for liftoff test on left shoulder??patient does have tenderness with all range of motion??of left shoulder area??patient seems to have strength??in biceps??triceps and rotator cuff testing,?No??swelling Skin: Skin is warm, dry and pink,?No??rashes,?No??lesions Neurologic: Awake, alert and oriented X4 Psychiatric: Cooperative, appropriate mood and affect Procedure No Qualifying Data Assessment/Plan 1.??Shoulder injury??S49.90XA Likely musculoskeletal??pain??from lifting??a case of beer this morning??patient does have a lift off??decreased motion??with rotator cuff??testing on the left??and tenderness with range of motion patient has a sling at home??patient will continue with Tylenol as needed nursing did discuss with her??limitations of how much Tylenol she can take in a day. ??Patient will take??oxycodone 5 mg??1 tab every 4-6 hours as needed??and will take Flexeril 10 mg 3 times a day as needed.?? Discussed with patient heat or ice and she will try heat as this is what seems to work for her.?? She has an MRI scheduled with orthopedics and she will keep??that appointment??for that. Ordered: cyclobenzaprine 10 mg oral tablet, 10 mg = 1 tab, Oral, TID, PRN as needed for spasm, X 10 days, # 30 tab, 0 Refill(s), 08/04/23 14:02:00 EDT, Pharmacy: [facility], 154.94, cm, 07/25/23 13:45:00 EDT, Height/Length Dosing, 89.63, kg, 07/25/23 13:45:00 EDT, Weight Dosing oxyCODONE 5 mg oral tablet, 5 mg = 1 tab, Oral, every 4 hr, PRN as needed for pain, # 12 tab, 0 Refill(s), 07/25/24 14:03:00 EDT, Pharmacy: [facility], 154.94, cm, 07/25/23 13:45:00 EDT, Height/Length Dosing, 89.63, kg, 07/25/23 13:45:00 EDT, Weight Dosing Discharge Patient, 07/25/23 14:15:00 EDT, Home Independently, Constant Indicator ?? Orders: XR Shoulder Complete 2+ Views Left, 07/25/23 13:56:00 EDT, Stat, Reason: pain, Transport Mode: Stretcher, Exam to be performed outside organization? Patient Education Shoulder Pain Follow Up With When Contact Information Follow up with primary care provider Within 1 to 2 weeks Additional Instructions: Medication Reconciliation New Prescription cyclobenzaprine (cyclobenzaprine 10 mg oral tablet)1 tab Oral (given by mouth) 3 times a day as needed as needed for spasm for 10 Days. Refills: 0. ?? oxyCODONE (oxyCODONE 5 mg oral tablet)1 tab Oral (given by mouth) every 4 hours as needed as neededfor pain. Refills: 0. ?? Unchanged acetaminophen (acetaminophen 650 mg oral tablet, extended release)2 tab Oral (given by mouth) 3 times a day as needed as needed for pain. not to exceed 6 tablets/da given to her by her cryptography teacher.. Refills: 1. ?? albuterol (albuterol 2.5 [...] Oral (given by mouth) every day. ?? cholecalciferol (Vitamin D3 50,000 intl units [...] strip three times daily. Refills: 4. ?? ferrous sulfate (ferrous sulfate 325 mg (65 mg elemental iron) oral delayed release tablet)1 tab Oral (given by mouth) every day. Refills: 3. ?? fluconazole (Diflucan 100 mg oral tablet)1 tab one time dose. Refills: 0. ?? furosemide (furosemide 40 mg oral tablet)90 tab. ?? gabapentin (gabapentin 100 mg oral capsule)1 Capsules Oral (given by mouth) 3 times a day. Refills:3. ?? hydroxychloroquine (Plaquenil 200 mg oral tablet)2 [...] TABLETS IN 24 HOURS. Refills: 3. ?? rotigotine (Neupro 2 mg/24 hr transdermal film, extended release)1 patch(es) Topical (on the skin) every day. Refills: 3. ?? torsemide (torsemide 20 mg oral tablet) ?? triamcinolone topical (triamcinolone 0.1% topical cream)1 Application Topical (on the skin) 2 timesa day. Apply a thin layer to the affected area(s). ?? venlafaxine (venlafaxine 150 mg oral capsule, extended release)TAKE ONE CAPSULE BY MOUTH EVERY DAY.Refills: 3. ?? venlafaxine (venlafaxine 75 mg oral capsule, extended release)1 Capsules Oral (given by mouth) every day. Refills: 3. Problem List/Past Medical History Ongoing Acute maxillary sinusitis Asthma Atypical chest pain Back pain with right-sided sciatica Bipolar affective disorder, current episode depression Blood blister Body mass index 30+ - obesity Body mass index 40+ - severely obese Cholelithiasis without obstruction Chronic diastolic heart failure Chronic fatigue syndrome Chronic kidney disease stage 3 Chronic kidney disease stage 3A Chronic pain syndrome Chronic rhinitis Chronic sinusitis Cough Depressed bipolar I disorder Depressive disorder Dizziness Dysphagia Dyspnea Fall at home Fibromyalgia Gastroesophageal reflux disease Gout Heart failure with normal ejection fraction History of subarachnoid hemorrhage Hypercholesterolemia Hyperparathyroidism Hypertensive disorder Intertrigo Keratoconjunctivitis sicca, 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 Other Substance Use Never Tobacco Former tobacco user Tobacco Use:. Family History Chronic obstructive lung disease: Father. Heart disease: Father. Myocardial infarction: Brother. Obesity: Father. Parkinsonism: Father. Electronically Signed on 07/25/23 02:19 PM Cecy Barrett MD Emergency department Discharge instructions * Cecy Barrett MD: PERFORM Event Display: ED Discharge Information Authored Date: [id number] AARON BHATT :1950 Age:72 years Sex:Female Visit Date:07/25/2023 Primary Care Physician: Leroy Case MD Discharge Instructions We would like to thank you for allowing us to assist you with your healthcare needs. The following includes patient education materials and information regarding your injury/illness. Diagnosis from Today's Visit Shoulder injury Discharge Vitals Temperature??(Temporal Artery) 97.3 ??F (36.3 ??C) Heart Rate??(Peripheral) 79 Respiratory Rate?? 18 Blood Pressure?? 132/64?? Height?? 61.00 in (154.940 cm) Weight??(Estimated) 197.63 lb (89.63 kg) Allergies Cat Hair??(Dyspnea, Other (See Comments)) clindamycin??(Diarrhoea) ALMOND??(Other) metFORMIN??(Unknown) mycophenolate mofetil??(Unknown) pilocarpine ophthalmic??(Unknown) sulfamethoxazole-trimethoprim??(Nausea) Ambien Bactrim Lortab acetaminophen-hydrocodone??(Abdominal pain) melatonin??(Hallucinations) zolpidem What to Do Next Instructions from Your Care Team For pain unrelieved by Tylenol you may take oxycodone 5 mg every??4-6 hours as needed.?? You may take??Flexeril (cyclobenzaprine) up to 10 mg 3 times a day??as needed for spasm and pain. ??Try heat to your shoulder to help with pain and discomfort.?? Keep any follow-up you have with orthopedics, schedule a sooner follow-up if you need to. You Need to Schedule the Following Appointments Follow Up with??Follow up with primary care provider When:??Within 1 to 2 weeks Upcoming Scheduled Appointments Friday 8:00 AM EDT ?? With: Leroy Case MD Where: [facility] [address] [place] [address] Status: Confirmed Friday 2:00 PM EST ?? With: Timi Hinojosa MD Where: [facility] [address], [address] [place] [address] Status: Confirmed Friday 3:30 PM EDT ?? With: aCsie Castañeda HOSPICE MANAGER Where: [facility] [address] [place] [address] Status: Confirmed You were treated today on an emergency [...] Much When Why Instructions Next Dose New cyclobenzaprine (cyclobenzaprine 10 mg oral tablet) 1 tab Oral (given by mouth) 3 times a day as needed for as needed for spasm Shoulder injury Duration: 10 Days Pickup at [facility] New oxyCODONE (oxyCODONE 5 mg oral tablet) 1 tab Oral (given by mouth) Every 4 hours as needed for as needed for pain Shoulder injury Pickup at [facility] Unchanged acetaminophen (acetaminophen 650 mg oral tablet, extended release) 2 tab Oral (given by mouth) 3 times a day as needed for as needed for pain not to exceed 6 tablets/ da given to her by her cryptography teacher. ?? Unchanged albuterol (albuterol 2.5 mg/ [...] Oral (given by mouth) Every day Unchanged cholecalciferol (Vitamin D3 50,000 intl units [...] one strip three times daily ?? Unchanged ferrous sulfate (ferrous sulfate 325 mg (65 mg elemental iron) oral delayed release tablet) 1 tab Oral (given by mouth) Every day Low iron Unchanged fluconazole (Diflucan 100 mg oral tablet) [...] 3 TABLETS IN 24 HOURS ?? Unchanged rotigotine (Neupro 2 mg/ 24 hr transdermal film, extended release) 1 patch(es) Topical (on the skin) Every day Unchanged torsemide (torsemide 20 mg oral tablet) Unchanged triamcinolone topical (triamcinolone 0.1% topical cream) 1 Application Topical (on the skin) 2 times a day Apply a thin layer to the affected area(s) ?? Unchanged venlafaxine (venlafaxine 150 mg oral capsule, extended release) See instructions TAKE ONE CAPSULE BY MOUTH EVERY DAY ?? Unchanged venlafaxine (venlafaxine 75 mg oral capsule, extended release) 1 Capsules Oral (given by mouth) Every day Depressive disorder Pharmacy Information [facility]: [address] [place], [place] [id number] [phone] Education Materials Shoulder Pain Many things can cause shoulder pain, including: ? An injury to the shoulder. ? Overuse of the shoulder. ? Arthritis. The source of the pain can be: ? Inflammation. ? An injury to the shoulder joint. ? An injury to a tendon, ligament, or bone. Follow these instructions at home: Pay attention to changes in your symptoms. Let your health care provider know about them. Follow these instructions to relieve your pain. If you have a sling: ? Wear the sling as told by your health care provider. Remove it only as told by your health care provider. ? Loosen the sling if your fingers tingle, become numb, or turn cold and blue. ? Keep the sling clean. ? If the sling is not waterproof: ? Do not let it get wet. Remove it to shower or bathe. ? Move your arm as little as possible, but keep your hand moving to prevent swelling. Managing pain, stiffness, and swelling ? If directed, put ice on the painful area: ? Put ice in a plastic bag. ? Place a towel between your skin and the bag. ? Leave the ice on for 20 minutes, 2???3 times per day. Stop applying ice if it does not help with the pain. ? Squeeze a soft ball or a foam pad as much as possible. This helps to keep the shoulder from swelling. It also helps to strengthen the arm. General instructions ? Take [id number] and prescription medicines only as told by your health care provider. ? Keep all follow-up visits as told by your health care provider. This is important. Contact a health care provider if: ? Your pain gets worse. ? Your pain is not relieved with medicines. ? New pain develops in your arm, hand, or fingers. Get help right away if: ? Your arm, hand, or fingers: ? Tingle. ? Become numb. ? Become swollen. ? Become painful. ? Turn white or blue. Summary ? Shoulder pain can be caused by an injury, overuse, or arthritis. ? Pay attention to changes in your symptoms. Let your health care provider know about them. ? This condition may be treated with a sling, ice, and pain medicines. ? Contact your health care provider if the pain gets worse or new pain develops. Get help right away if your arm, hand, or fingers tingle or become numb, swollen, or painful. ? Keep all follow-up visits as told by your health care provider. This is important. This information is not intended to replace advice given to you by your health care provider. Make sure you discuss any questions you have with your health care provider. Document Revised: 06/14/2022 Document Reviewed: 06/14/2022 Elsevier Patient Education ?? 2022 [employer] Patient/Patcher Signature Patient Name:AARON BHATT I have received this information and my questions have been answered. Patient/Patcher Name: Patient/Patcher Signature: Relationship to Patient: Witness Name/Signature: Date: Electronically Signed on: 07/25/2023 14:17 EDTSigned by:[facility] Emergency department Note * Ashli Schaeffer: PERFORM Event Display: ED Notes Authored Date: [id number] Discharge summary * Ashli Schaeffer: PERFORM Event Display: Discharge Note Authored Date: [id number] * Ashli Schaeffer: PERFORM Event Display: Discharge Note Authored Date: [id number] Diagnosis: 1. Shoulder injury Comment: Diagnosis: Shoulder injury - Minor Comment: Electronically Signed on 07/25/23 02:36 PM Ashli Schaeffer Patient Care team information Care Team Personnel Name: Leroy Case MD Position: Physician Member Role: Informed Provider Address: Address: [address] Name: Joseluis Ellington RN Position: Nurse Member Role: ED Nurse Name: Cecy Barrett MD Position: Physician Member Role: ED Physician Address: Address: [address] [place] [address] Care Team Related Persons Name: JEERD STUBBS Name: VICKIE BHATT III Address: Home [address] [place] [phone]
--- OUTSIDE RECORDS SUMMARY | 2023-11-24 02:04 | XMS_ITS | Continuity of Care Document ---
Author Name Unknown Organization [facility] Address [address] [place] [address] Care Team Providers Care Machine Carton Marker Name Role Phone Leroy Case Primary Care Physician Encounter [facility] Date(s): 11/14/23 - 11/14/[address] [address] Discharge Disposition: Home or Self Care Attending [...] Plan Future Appointments Diagnostic Tests Pending * Hemoglobin A1c 11/14/23 Immunizations Given and Recorded Vaccine Date Status [...] Comment: Unit: Unknown 3Result Comment: Unit: Unknown Head Sawyer Automatic: [employer] Medications !-Zofran ODT 4 mg oral tablet, disintegrating 4 mg = 1 tab, Oral, every 6 hr, PRN as needed for nausea/vomiting, # 12 tab, 0 Refill(s), Pharmacy:[facility] #58, 157.4, cm, 02/01/23 10:28:00 EDT, Height/Length Dosing, 95.7, kg, 02/01/23 10:28:00 EDT, Weight Dosing Start Date: 02/01/23 Stop Date: 02/04/23 Status: Ordered acetaminophen 650 mg oral tablet, extended release 1,300 mg = 2 tab, Oral, TID, PRN as needed for pain, not to exceed 6 tablets/da given to her by herrheumatologist., # 100 tab, 1 Refill(s), Pharmacy: [facility] #58, 157.4, cm, 02/01/23 10:28:00 EDT, Height/Length Dosing, 95.7, kg, 02/01/23 10:28:00 EDT, Weight Dosing Start Date: 05/20/23 Status: Ordered albuterol 2.5 mg/3 mL (0.083%) inhalation solution 2.5 mg = 3 mL, NEB, TID, PRN as needed for wheezing, # 810 mL, 4 Refill(s), Pharmacy: [facility] #58, 157, cm, 10/04/22 11:31:00 EST, Height/Length [...] 0 Refill(s) Start Date: 04/23/22 Status: Ordered dulaglutide 4.5 mg/0.5 mL subcutaneous solution 0.5 mL =, Subcutaneous, every week, rotate injection sites, # 2 mL, 3 Refill(s), Pharmacy: [facility], 157.48, cm, 07/29/23 17:53:00 EDT, Height/Length Dosing, 90.72, kg, 07/29/23 17:53:00 EDT, Weight Dosing Start Date: 10/27/23 Status: Ordered ferrous sulfate 325 mg (65 mg elemental iron) oral delayed release tablet 325 mg = 1 tab, Oral, Daily, # 90 tab, 3 Refill(s), Pharmacy: [facility] #58, 158, cm, 05/31/23 11:18:00 EDT, Height/Length Dosing, 88.45, kg, 05/31/23 11:18:00 EDT, Weight Dosing Start Date: 06/02/23 Status: Ordered FreeStyle Lite Test Strips FreeStyle Lite Test Strips, Use one strip three times daily, Supply, See instructions, # 300 EA, 4 Refill(s), Pharmacy: [facility] Start Date: 02/05/23 Status: Ordered furosemide 40 mg oral tablet 90 tab, 0 Refill(s) Start Date: 11/24/22 Status: Ordered gabapentin 100 mg oral capsule 100 mg = 1 cap, Oral, TID, # 270 cap, 3 Refill(s), Pharmacy: [facility], 158, cm, 05/31/23 11:18:00 EDT, Height/Length Dosing, 88.45, kg, 05/31/23 11:18:00 EDT, Weight Dosing Start Date: 06/02/23 Status: Ordered ibuprofen 800 mg oral tablet 800 mg = 1 tab, Oral, every 8 hr, PRN as needed for pain, # 30 tab, 0 Refill(s), Pharmacy: [facility]58, 157.4, cm, 02/01/23 10:28:00 EDT, Height/Length [...] QID, # 4 g, 0 Refill(s), Pharmacy: [facility], 157.4, cm, 02/01/23 10:28:00 EDT, Height/Length [...] 4x/day, # 100 mL, 2 Refill(s), Pharmacy: [facility]58, 157.4, cm, 02/01/23 10:28:00 EDT, Height/Length Dosing, 95.7, kg, 02/01/23 10:28:00 EDT, Weight Dosing Start Date: 04/17/23 Status: Ordered lisinopril 20 mg oral tablet 20 mg = 1 tab, Oral, Daily, # 30 tab, 4 Refill(s), Pharmacy: [facility]58, 157, cm, 10/04/22 11:31:00 EST, Height/Length Dosing, 98, kg, 10/04/22 11:31:00 EST, Weight Dosing Start Date: 11/27/22 Status: Ordered Neupro 2 mg/24 hr transdermal film, extended release 1 patches, Topical, Daily, # 90 patches, 3 Refill(s), Pharmacy: [facility], 158,cm, 05/31/23 11:18:00 EDT, Height/Length Dosing, 88.45, kg, 05/31/23 11:18:00 EDT, Weight Dosing Start Date: 07/16/23 Status: Ordered oxyCODONE 5 mg oral tablet 5 mg = 1 tab, Oral, every 4 hr, PRN as needed for pain, # 12 tab, 0 Refill(s), 07/25/24 1:03:00 PM CDT, Pharmacy: [facility]58, 154.94, cm, 07/25/23 13:45:00 EDT, Height/Length [...] wheezing, # 8.5 g, 6 Refill(s), Pharmacy: [facility]58, 157.4, cm, 02/01/23 10:28:00 EDT, Height/Length Dosing, 95.7, kg, 02/01/23 10:28:00 EDT,Weight Dosing Start Date: 02/03/23 Status: Ordered ProAir RespiClick 90 mcg/inh inhalation powder 1 EA, INHALE ONE PUFF BY MOUTH EVERY 6 HOURS NEEDED, 0 Refill(s) Start Date: 11/24/22 Status: Ordered rizatriptan 10 mg oral tablet See Instructions, TAKE ONE TABLET BY MOUTH AT ONSET OF HEADACHE, MAY REPEAT IN TWO HOURS IF NECESSARY, DAILY MAX = 3 TABLETS IN 24 HOURS, # 12 tab, 3 Refill(s), Pharmacy: [facility] #58, 157.48, cm, 07/29/23 17:53:00 EDT, Height/Length Dosing, 90.72, kg, 07/29/23 17:53:00 EDT, Weight Dosing Start Date: 08/08/23 Status: Ordered torsemide 20 mg oral tablet 0 Refill(s) Start Date: 03/13/22 Status: Ordered triamcinolone 0.1% topical cream 1 yonas, Topical, BID, Apply a thin layer to the affected area(s) Start Date: 10/11/21 Status: Ordered venlafaxine 150 mg oral capsule, extended release See Instructions, TAKE ONE CAPSULE BY MOUTH EVERY DAY, # 90 cap, 3 Refill(s), Pharmacy: [facility], 158, cm, 05/31/23 11:18:00 EDT, Height/Length Dosing, 88.45, kg, 05/31/23 11:18:00 EDT, Weight Dosing Start Date: 06/03/23 Status: Ordered venlafaxine 75 mg oral capsule, extended release 75 mg = 1 cap, Oral, Daily, # 90 cap, 3 Refill(s), Pharmacy: [facility], 158, cm, 05/31/23 11:18:00 EDT, [...] polyps, mild diverticulosis. 1st one done in [place] years ago pt reports polyps removed 3L distal fibula 4Patient reported metal in left foot and metal in back Results Laboratory List Name Date Sedimentation Rate (ESR) 11/14/23 Most recent to oldest [Reference Range]: 1 ESR, Westergren [0-30 mm/hr] 29 mm/hr (11/14/23 4:01 PM) Social History Social History Type Response Tobacco Former tobacco user Tobacco Use:. Sex Female Patient Care team information Care Team Personnel Name: Leroy Case MD Position: Physician Member Role: Informed Provider Address: Address: [id number] [place] [address] Care Team Related Persons Name: JERED STUBBS Name: VICKIE BHATT III Address: Home [address] [place] [address], [phone]
--- OUTSIDE RECORDS SUMMARY | 2023-11-24 02:04 | XMS_ITS | Continuity of Care Document ---
Author Name Unknown Organization [facility] Address [address] [place] [address] Care Team Providers Care Fraud Investigator Name Role Phone Leroy Case Primary Care Physician Encounter [place] Date(s): 06/17/23 - 06/17/[address] [address] Discharge Disposition: Home or Self Care Attending Physician: Fadumo Campbell COLD ROLL INSPECTOR Admitting Physician: Fadumo Campbell COLD ROLL INSPECTOR Referring Physician: Fadumo Campbell COLD ROLL INSPECTOR Allergies, Adverse Reactions, Alerts Substance Reaction Severity Status ALMOND Other Moderate Active sulfamethoxazole-trimethoprim Nausea Moderate Active pilocarpine ophthalmic Unknown Moderate Activ e acetaminophen-hydrocodone Abdominal pain Unknown Active mycophenolate mofetil Unknown Moderate Active clindamycin Diarrhoea Severe Active zolpidem Unknown Active melatonin Hallucinations Unknown Active Ambien Unknown Active Lortab Unknown Active Cat Hair Dyspnea Other (See Comments) Severe Active metFORMIN Unknown Moderate Active Bactrim Unknown Active Assessment and Plan [...] Comment: Unit: Unknown 3Result Comment: Unit: Unknown 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[employer] Medications !-Zofran ODT 4 mg oral tablet, disintegrating 4 mg = 1 tab, Oral, every 6 hr, PRN as needed for nausea/vomiting, # 12 tab, 0 Refill(s), Pharmacy:[facility]58, 157.4, cm, 02/01/23 10:28:00 EDT, Height/Length Dosing, 95.7, kg, 02/01/23 10:28:00 EDT, Weight Dosing Start Date: 02/01/23 Stop Date: 02/04/23 Status: Ordered acetaminophen 650 mg oral tablet, extended release 1,300 mg = 2 tab, Oral, TID, PRN as needed for pain, not to exceed 6 tablets/da given to her by herrheumatologist., # 100 tab, 1 Refill(s), Pharmacy: [facility]58, 157.4, cm, 02/01/23 10:28:00 EDT, Height/Length Dosing, 95.7, kg, 02/01/23 10:28:00 EDT, Weight Dosing Start Date: 05/20/23 Status: Ordered albuterol 2.5 mg/3 mL (0.083%) inhalation solution 2.5 mg = 3 mL, NEB, TID, PRN as needed for wheezing, # 810 mL, 4 Refill(s), Pharmacy: [facility]58, 157, cm, 10/04/22 11:31:00 EST, Height/Length [...] TID, # 300 mL, 0 Refill(s), Pharmacy: [facility]58, 157.4, cm, 02/01/2310:28:00 EDT, Height/Length Dosing, [...] dose, # 1 tab, 0 Refill(s), Pharmacy: [facility]58, 157.4,cm, 02/01/23 10:28:00 EDT, Height/Length Dosing, 95.7, kg, 02/01/23 10:28:00 EDT, Weight Dosing Start Date: 05/26/23 Status: Ordered ferrous sulfate 325 mg (65 mg elemental iron) oral delayed release tablet 325 mg = 1 tab, Oral, Daily, # 90 tab, 3 Refill(s), Pharmacy: [facility]58, 158, cm, 05/31/23 11:18:00 EDT, Height/Length Dosing, 88.45, kg, 05/31/23 11:18:00 EDT, Weight Dosing Start Date: 06/02/23 Status: Ordered FreeStyle Lite Test Strips FreeStyle Lite Test Strips, Use one strip three times daily, Supply, See instructions, # 300 EA, 4 Refill(s), Pharmacy: [facility] Start Date: 02/05/23 Status: Ordered furosemide 40 mg oral tablet 90 tab, 0 Refill(s) Start Date: 11/24/22 Status: Ordered gabapentin 100 mg oral capsule 100 mg = 1 cap, Oral, TID, # 270 cap, 3 Refill(s), Pharmacy: [facility], 158, cm, 05/31/23 11:18:00 EDT, Height/Length Dosing, 88.45, kg, 05/31/23 11:18:00 EDT, Weight Dosing Start Date: 06/02/23 Status: Ordered ibuprofen 800 mg oral tablet 800 mg = 1 tab, Oral, every 8 hr, PRN as needed for pain, # 30 tab, 0 Refill(s), Pharmacy: [facility]58, 157.4, cm, 02/01/23 10:28:00 EDT, Height/Length [...] QID, # 4 g, 0 Refill(s), Pharmacy: [facility]58, 157.4, cm, 02/01/23 10:28:00 EDT, Height/Length [...] 4x/day, # 100 mL, 2 Refill(s), Pharmacy: [facility]58, 157.4, cm, 02/01/23 10:28:00 EDT, Height/Length Dosing, 95.7, kg, 02/01/23 10:28:00 EDT, Weight Dosing Start Date: 04/17/23 Status: Ordered lisinopril 20 mg oral tablet 20 mg = 1 tab, Oral, Daily, # 30 tab, 4 Refill(s), Pharmacy: [facility]58, 157, cm, 10/04/22 11:31:00 EST, Height/Length [...] wheezing, # 8.5 g, 6 Refill(s), Pharmacy: [facility]58, 157.4, cm, 02/01/23 10:28:00 EDT, Height/Length [...] HOURS, # 12 tab, 3 Refill(s), Pharmacy: [facility]58, 157.4, cm, 02/01/23 10:28:00 EDT, Height/Length Dosing, 95.7, kg, 02/01/23 10:28:00 EDT, Weight Dosing Start Date: 04/14/23 Status: Ordered rOPINIRole 1 mg oral tablet See Instructions, take 2 PO two hours before bedtime, # 180 tab, 3 Refill(s), Pharmacy: [facility]58, 157.4, cm, 02/01/23 10:28:00 EDT, Height/Length [...] DAY, # 90 cap, 3 Refill(s), Pharmacy: [facility], 158, cm, 05/31/23 11:18:00 EDT, Height/Length Dosing, 88.45, kg, 05/31/23 11:18:00 EDT, Weight Dosing Start Date: 06/03/23 Status: Ordered venlafaxine 75 mg oral capsule, extended release 75 mg = 1 cap, Oral, Daily, # 90 cap, 3 Refill(s), Pharmacy: [facility], 158, cm, 05/31/23 11:18:00 EDT, [...] Results Laboratory List Name Date Hemoglobin A1c 06/17/23 Most recent to oldest [Reference Range]: 1 Hemoglobin A1c [4.0-6.0 %] 8.4 % *HI* (06/17/23 10:42 AM) Social History Social History Type Response Tobacco Former tobacco user Tobacco Use:. Sex Female Patient Care team information Care Team Personnel Name: Leroy Case MD Position: Physician Member Role: Informed Provider Address: Address: [address] Care Team Related Persons Name: JERED STUBBS Name: VICKIE BHATT III Address: Home [address] [place], [place] [id number]
--- OUTSIDE RECORDS SUMMARY | 2023-11-24 02:04 | XMS_ITS | Continuity of Care Document ---
Author Name Unknown Organization [facility] Address [address] [place] [address] Care Team Providers Care Hotel Room Attendant Name Role Phone Leroy Case Primary Care Physician [phone] Encounter [facility] Date(s): 11/30/22 - 11/30/[address] [address] Discharge Disposition: Home or Self Care Attending [...] Plan Future Appointments Diagnostic Tests Pending * PTH Intact [facility] 11/30/22 * Vitamin D, 25-OH Total [facility] 11/30/22 Future Scheduled Tests Radiology* MRI Spine Lumbar [...] Comment: Unit: Unknown 3Result Comment: Unit: Unknown Hygiene Coordinator: [place] Medications !-Augmentin 875 mg-125 mg oral tablet 1 tab, Oral, every 12 hr, # 60 tab, 0 Refill(s), Pharmacy: [facility], 157, cm, 10/04/22 11:31:00 EST, Height/Length Dosing, 98, kg, 10/04/22 11:31:00 EST, Weight Dosing Start Date: 11/27/22 Status: Ordered albuterol 2.5 mg/3 mL (0.083%) inhalation solution 2.5 mg = 3 mL, NEB, TID, PRN as needed for wheezing, # 810 mL, 4 Refill(s), Pharmacy: [facility], 157, cm, 10/04/22 11:31:00 EST, Height/Length [...] Status: Ordered gabapentin 100 mg oral capsule 90 EA, TAKE ONE CAPSULE BY MOUTH THREE TIMES A DAY, 0 Refill(s) Start Date: 11/24/22 Status: Ordered HumaLOG 100 units/mL injectable solution [...] pain, # 30 tab, 0 Refill(s), Pharmacy: [facility], 157.48, cm, 05/13/22 10:43:00 EDT, Height/Length [...] Daily, # 30 tab, 4 Refill(s), Pharmacy: [facility], 157, cm, 10/04/22 11:31:00 EST, Height/Length [...] wheezing, # 8.5 g, 1 Refill(s), Pharmacy: [facility], 157.48, cm, 05/13/22 10:43:00 EDT, Height/Length [...] hours, # 12 tab, 1 Refill(s), Pharmacy: [facility] Start Date: 04/26/22 Status: Ordered [...] pain, # 28 tab, 0 Refill(s), Pharmacy: [facility] Start Date: 03/14/22 Status: Ordered traZODone 50 mg oral tablet 30 EA, TAKE ONE TABLET BY MOUTH AT BEDTIME, 0 Refill(s) Start Date: 11/24/22 Status: Ordered triamcinolone 0.1% topical cream 1 yonas, Topical, BID, Apply a thin layer to the affected area(s) Start Date: 10/11/21 Status: Ordered Trulicity Pen 1.5 mg/0.5 mL subcutaneous solution See Instructions, inject two doses of 0.5 mL for a total weekly dose of 3mg. Due to nation shortageof 3mg pen., # 2 mL, 4 Refill(s), Pharmacy: [facility], 157, cm, 10/04/22 11:31:00 EST, Height/Length Dosing, 98, kg, 10/04/22 11:31:00 EST,... Start Date: 11/27/22 Status: Ordered valACYclovir 1 g oral tablet 1 g = 1 tab, Oral, TID, Take for 7 days Start Date: 10/11/21 Status: Ordered venlafaxine 150 mg oral tablet, extended release 150 mg = 1 tab, Oral, Daily, # 30 tab, 0 Refill(s), Pharmacy: [facility], 157, cm, 10/04/22 11:31:00 EST, Height/Length Dosing, 98, kg, 10/04/22 11:31:00 EST, Weight Dosing Start Date: 11/14/22 Status: Ordered venlafaxine 75 mg oral capsule, extended release 75 mg = 1 cap, Oral, Daily, # 30 cap, 0 Refill(s), Pharmacy: [facility], 157, cm, 10/04/22 11:31:00 EST, Height/Length [...] Active Obstructive sleep apnea syndrome Confirmed Active Perforation of nasal septum Confirmed [...] in back Results Laboratory List Name Date CBC w/ Diff 11/30/22 Renal Function Panel 11/30/22 Automated Diff 11/30/22 Microalbumin/Creatinine Ratio Urine 11/30 Urinalysis Dipstick Only 11/30/22 Most recent to oldest [Reference Range]: 1 WBC [5.0-10.0 x10^3/mcL] 7.1 x10^3/mcL (2/18/23 1:20 PM) RBC [4.1-5.3 x10^6/mcL] 4.4 x10^6/mcL (11/30/22 1:20 PM) Neutro Auto [40.0-75.0 %] 50.1 % (11/30/22 1:20 PM) Lymph Auto [20.0-50.0 %] 37.4 % (11/30/22 1:20 PM) [place] Auto [2.0-15.0 %] 6.3 % (11/30/22 1:20 PM) Basophil Auto [0.0-1.0 %] 1.1 % *HI* (11/30/22 1:20 PM) BUN [7-18 mg/dL] 28 mg/dL *HI* (11/30/22 1:20 PM) UA Color Yellow (11/30/22 1:12 PM) Glucose Level [74-106 mg/dL] 235 mg/dL *HI* (11/30/22 1:20 PM) Potassium Level [3.5-5.1 mmol/L] 5.0 mmo l/L (11/30/22 1:20 PM) MCV [80.0-96.0] 85.0 (11/30/22 1:20 PM) UA Urobilinogen Normal (11/30/22 1:12 PM) UA Bili [Negative] Negative (11/30/22 1:12 PM) UA Ketones Negative (11/30/22 1:12 PM) MCHC [31.0-35.0 g/dL] 30.7 g/dL *LOW* (11/30/22 1:20 PM) Sodium Level [136-145 mmol/L] 136 mmol/L (11/30/22 1:20 PM) UA Leuk Est Negative (11/30/22 1:12 PM) UA Nitrite Negative (11/30/22 1:12 PM) UA Glucose [Negative] 2+ *ABN* (11/30/22 1:12 PM) Hct [37.0-47.0 %] 37.5 % (11/30/22 1:20 PM) Calcium Level [8.5-10.1 mg/dL] 8.6 mg/dL (11/30/22 1:20 PM) Phosphorus Level [2.6-4.7 mg/dL] 4.5 mg/ dL (11/30/22 1:20 PM) Albumin Level [3.4-5.0 g/dL] 3.3 g/dL *LOW* (11/30/22 1:20 PM) UA Protein Trace *ABN* (11/30/22 1:12 PM) MCH [26.0-32.0 pg] 26.1 pg (11/30/22 1:20 PM) Neutro Absolute 3.6 x10^3/mcL *NA* (11/30/22 1:20 PM) Hgb [12.0-16.0 g/dL] 11.5 g/dL *LOW* (11/30/22 1:20 PM) UA Blood Negative (11/30/22 1:12 PM) UA Spec Grav 1.025 *NA* (11/30/22 1:12 PM) Platelets [130-450 x10^3/mcL] 291 x10^3/ mcL (11/30/22 1:20 PM) CO2 [21-32 mmol/L] 29 mmol/L (11/30/22 1:20 PM) UA pH 5.5 *NA* (11/30/22 1:12 PM) eGFR Non-AA [>=60] 65 (11/30/22 1:20 PM) eGFR AA [>=60] 65 (11/30/22 1:20 PM) UA Appear Clear (11/30/22 1:12 PM) U Creatinine [30-125 mg/dL] 50 mg/dL (11/30/22 1:12 PM) Chloride Level [98-107 mmol/L] 102 mmol/ L (11/30/22 1:20 PM) RDW-CV [11.7-17.0 %] 13.9 % (11/30/22 1:20 PM) U Microalb/Creat [0.0-30.0 mcg/mg] 164.4 mcg/mg *HI* (11/30/22 1:12 PM) U Microalb [0.0-20.0] 82.2 *HI* (11/30/22 1:12 PM) Imm Gran Auto [0.0-0.9 %] 0.3 % (11/30/22 1:20 PM) Creatinine Level [0.55-1.02 mg/dL] 0.94 mg/dL (11/30/22 1:20 PM) Eos, Auto [1.0-6.0 %] 4.8 % (11/30/22 1:20 PM) Social History Social History Type Response Tobacco Former tobacco user Tobacco Use:. Sex Female Patient Care team information Care Team Personnel Name: Leroy Case MD Position: Physician Member Role: Informed Provider Address: Address: [address] Care Team Related Persons Name: JERED STUBBS Address: Home Name: VICKIE BHATT III Address: Home [address] [place] [phone]
--- OUTSIDE RECORDS SUMMARY | 2023-11-24 02:04 | XMS_ITS | Continuity of Care Document ---
Author Name Unknown Organization [facility] Address [address] [place] [address] Care Team Providers Care Unarmed Security Guard Name Role Phone Leroy Case Primary Care Physician Encounter [place] Date(s): 07/29/23 - 07/29/[address] [address] Discharge Disposition: Left Without Being Seen Attending Physician: Trevor Ha MD Admitting Physician: Trevor Ha MD Allergies, Adverse Reactions, Alerts Substance Reaction [...] Spine Lumbar w/o Contrast 11/13/22 Functional Status 07/29/23 Family Member Travel History No recent t [...] Comment: Unit: Unknown 3Result Comment: Unit: Unknown 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[employer] Medications !-Zofran ODT 4 mg oral tablet, disintegrating 4 mg = 1 tab, Oral, every 6 hr, PRN as needed for nausea/vomiting, # 12 tab, 0 Refill(s), Pharmacy:[facility], 157.4, cm, 02/01/23 10:28:00 EDT, Height/Length Dosing, 95.7, kg, 02/01/23 10:28:00 EDT, Weight Dosing Start Date: 02/01/23 Stop Date: 02/04/23 Status: Ordered acetaminophen 650 mg oral tablet, extended release 1,300 mg = 2 tab, Oral, TID, PRN as needed for pain, not to exceed 6 tablets/da given to her by herrheumatologist., # 100 tab, 1 Refill(s), Pharmacy: [facility], 157.4, cm, 02/01/23 10:28:00 EDT, Height/Length Dosing, 95.7, kg, 02/01/23 10:28:00 EDT, Weight Dosing Start Date: 05/20/23 Status: Ordered albuterol 2.5 mg/3 mL (0.083%) inhalation solution 2.5 mg = 3 mL, NEB, TID, PRN as needed for wheezing, # 810 mL, 4 Refill(s), Pharmacy: [facility], 157, cm, 10/04/22 11:31:00 EST, Height/Length [...] 0 Refill(s), 08/04/23 1:02:00 PM CDT, Pharmacy: [facility], 154.94, cm, 07/25/23 13:45:00 EDT, Height/Length Dosing, 89.63, kg, 07/25/23 13:45:00 EDT, Weight Dosing Start Date: 07/25/23 Stop Date: 08/04/23 Status: Ordered dexamethasone 0.5 mg/5 mL oral liquid 1 mg = 10 mL, Oral, TID, # 300 mL, 0 Refill(s), Pharmacy: [facility], 157.4, cm, 02/01/2310:28:00 EDT, Height/Length Dosing, [...] dose, # 1 tab, 0 Refill(s), Pharmacy: [facility], 157.4,cm, 02/01/23 10:28:00 EDT, Height/Length Dosing, 95.7, kg, 02/01/23 10:28:00 EDT, Weight Dosing Start Date: 05/26/23 Status: Ordered ferrous sulfate 325 mg (65 mg elemental iron) oral delayed release tablet 325 mg = 1 tab, Oral, Daily, # 90 tab, 3 Refill(s), Pharmacy: [facility], 158, cm, 05/31/23 11:18:00 EDT, Height/Length Dosing, 88.45, kg, 05/31/23 11:18:00 EDT, Weight Dosing Start Date: 06/02/23 Status: Ordered FreeStyle Lite Test Strips FreeStyle Lite Test Strips, Use one strip three times daily, Supply, See instructions, # 300 EA, 4 Refill(s), Pharmacy: [facility] Start Date: 02/05/23 Status: Ordered furosemide 40 mg oral tablet 90 tab, 0 Refill(s) Start Date: 11/24/22 Status: Ordered gabapentin 100 mg oral capsule 100 mg = 1 cap, Oral, TID, # 270 cap, 3 Refill(s), Pharmacy: [facility], 158, cm, 05/31/23 11:18:00 EDT, Height/Length Dosing, 88.45, kg, 05/31/23 11:18:00 EDT, Weight Dosing Start Date: 06/02/23 Status: Ordered ibuprofen 800 mg oral tablet 800 mg = 1 tab, Oral, every 8 hr, PRN as needed for pain, # 30 tab, 0 Refill(s), Pharmacy: [facility], 157.4, cm, 02/01/23 10:28:00 EDT, Height/Length [...] QID, # 4 g, 0 Refill(s), Pharmacy: [facility], 157.4, cm, 02/01/23 10:28:00 EDT, Height/Length [...] 4x/day, # 100 mL, 2 Refill(s), Pharmacy: [facility], 157.4, cm, 02/01/23 10:28:00 EDT, Height/Length Dosing, 95.7, kg, 02/01/23 10:28:00 EDT, Weight Dosing Start Date: 04/17/23 Status: Ordered lisinopril 20 mg oral tablet 20 mg = 1 tab, Oral, Daily, # 30 tab, 4 Refill(s), Pharmacy: [facility], 157, cm, 10/04/22 11:31:00 EST, Height/Length Dosing, 98, kg, 10/04/22 11:31:00 EST, Weight Dosing Start Date: 11/27/22 Status: Ordered Neupro 2 mg/24 hr transdermal film, extended release 1 patches, Topical, Daily, # 90 patches, 3 Refill(s), Pharmacy: [facility], 158,cm, 05/31/23 11:18:00 EDT, Height/Length Dosing, 88.45, kg, 05/31/23 11:18:00 EDT, Weight Dosing Start Date: 07/16/23 Status: Ordered oxyCODONE 5 mg oral tablet 5 mg = 1 tab, Oral, every 4 hr, PRN as needed for pain, # 12 tab, 0 Refill(s), 07/25/24 1:03:00 PM CDT, Pharmacy: [facility], 154.94, cm, 07/25/23 13:45:00 EDT, Height/Length [...] wheezing, # 8.5 g, 6 Refill(s), Pharmacy: [facility], 157.4, cm, 02/01/23 10:28:00 EDT, Height/Length [...] HOURS, # 12 tab, 3 Refill(s), Pharmacy: [facility], 157.4, cm, 02/01/23 10:28:00 EDT, Height/Length [...] DAY, # 90 cap, 3 Refill(s), Pharmacy: [facility], 158, cm, 05/31/23 11:18:00 EDT, Height/Length Dosing, 88.45, kg, 05/31/23 11:18:00 EDT, Weight Dosing Start Date: 06/03/23 Status: Ordered venlafaxine 75 mg oral capsule, extended release 75 mg = 1 cap, Oral, Daily, # 90 cap, 3 Refill(s), Pharmacy: [facility], 158, cm, 05/31/23 11:18:00 EDT, [...] polyps, mild diverticulosis. 1st one done in [place] years ago pt reports polyps removed 3L distal fibula 4Patient reported metal in left foot and metal in back Vital Signs Most recent to oldest [Reference Range]: 1 Temperature Temporal Artery [36-38 Deg C ] 36.0 Deg C (07/29/23 5:47 PM) Peripheral Pulse Rate [60-100 bpm] 100 b pm (07/29/23 5:47 PM) Respiratory Rate [12-24 br/min] 20 br/mi n (07/29/23 5:47 PM) Blood Pressure [90-140/60-90 mmHg] 153/9 0mmHg *HI* (07/29/23 5:47 PM) Mean Arterial Pressure, Cuff [65-140 mmH g] 111 mmHg (07/29/23 5:47 PM) Weight Dosing 90.72 kg (07/29/23 5:53 PM) Weight Estimated 90.72 kg (07/29/23 5:47 PM) Height/Length Dosing 157.480 cm (07/29/23 5:53 PM) Height/Length Estimated 157.480 cm (07/29/23 5:47 PM) Social History Social History Type Response Tobacco Former tobacco user Tobacco Use:. Sex Female Patient Care team information Care Team Personnel Name: Leroy Caes MD Position: Physician Member Role: Informed Provider Address: Address: [address] Name: Karuna Ferguson Position: Nurse Member Role: ED Nurse Care Team Related Persons Name: JERED STUBBS Address: Home Name: VICKIE BHATT III Address: Home [address] [place] [address] [id number]
--- OUTSIDE RECORDS SUMMARY | 2023-11-24 02:05 | XMS_ITS | Continuity of Care Document ---
Author Name Unknown Organization [facility] or Sleep Disorders Address [address] [place] [address] Care Team Providers Care Clinical Transformation Specialist Name Role Phone Bhavesh Case Primary Care Physician Encounter [facility] [id number] Date(s): 12/09/22 - 12/09/22 [facility] [address] [place] [address] Encounter Diagnosis Obstructive sleep apnea syndrome(Discharge Diagnosis) - 12/09/22 Parasomnia(Discharge Diagnosis) - 12/09/22 Discharge Disposition: Home or Self Care Attending Physician: 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 BULL WHEEL WORKER Allergies, Adverse Reactions, Alerts Substance Reaction Severity [...] Spine Lumbar w/o Contrast 11/13/22 Functional Status 12/09/22 Other exposure to Infectious Disease Non e [...] Comment: Unit: Unknown 3Result Comment: Unit: Unknown 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: [employer] Medications !-Augmentin 875 mg-125 mg oral tablet 1 tab, Oral, every 12 hr, # 60 tab, 0 Refill(s), Pharmacy: [facility], 157, cm, 10/04/22 11:31:00 EST, Height/Length Dosing, 98, kg, 10/04/22 11:31:00 EST, Weight Dosing Start Date: 11/27/22 Status: Ordered albuterol 2.5 mg/3 mL (0.083%) inhalation solution 2.5 mg = 3 mL, NEB, TID, PRN as needed for wheezing, # 810 mL, 4 Refill(s), Pharmacy: [facility], 157, cm, 10/04/22 11:31:00 EST, Height/Length [...] pain, # 30 tab, 0 Refill(s), Pharmacy: [facility], 157.48, cm, 05/13/22 10:43:00 EDT, Height/Length [...] Daily, # 30 tab, 4 Refill(s), Pharmacy: [facility], 157, cm, 10/04/22 11:31:00 EST, Height/Length [...] wheezing, # 8.5 g, 1 Refill(s), Pharmacy: [facility], 157.48, cm, 05/13/22 10:43:00 EDT, Height/Length [...] hours, # 12 tab, 1 Refill(s), Pharmacy: [facility] Start Date: 04/26/22 Status: Ordered [...] pain, # 28 tab, 0 Refill(s), Pharmacy: [facility] Start Date: 03/14/22 Status: Ordered traZODone [...] pen., # 2 mL, 4 Refill(s), Pharmacy: [facility], 157, cm, 10/04/22 11:31:00 EST, Height/Length Dosing, 98, kg, 10/04/22 11:31:00 EST,... Start Date: 11/27/22 Status: Ordered valACYclovir 1 g oral tablet 1 g = 1 tab, Oral, TID, Take for 7 days Start Date: 10/11/21 Status: Ordered venlafaxine 150 mg oral tablet, extended release 150 mg = 1 tab, Oral, Daily, # 30 tab, 0 Refill(s), Pharmacy: [facility], 157, cm, 10/04/22 11:31:00 EST, Height/Length Dosing, 98, kg, 10/04/22 11:31:00 EST, Weight Dosing Start Date: 11/14/22 Status: Ordered venlafaxine 75 mg oral capsule, extended release 75 mg = 1 cap, Oral, Daily, # 30 cap, 0 Refill(s), Pharmacy: [facility], 157, cm, 10/04/22 11:31:00 EST, Height/Length [...] polyps, mild diverticulosis. 1st one done in [place] years ago pt reports polyps removed 3L distal fibula 4Patient reported metal in left foot and metal in back Vital Signs Most recent to oldest [Reference Range]: 1 Peripheral Pulse Rate [60-100 bpm] 80 bp m (12/09/22 8:57 AM) Blood Pressure [90-140/60-90 mmHg] 160/7 4mmHg *HI* (12/09/22 8:57 AM) Weight 98.70 kg (12/09/22 8:57 AM) Weight Measured (lbs) 217.596 lb (12/09/22 8:57 AM) Height 158 cm (12/09/22 8:57 AM) Height/Length Measured (inches) 62.2 inc h (12/09/22 8:57 AM) BSA Measured 2.08 m2 (12/09/22 8:57 AM) Body Mass Index 39.54 kg/m2 (12/09/22 8:57 AM) Social History Social History Type Response Tobacco Former tobacco user Tobacco Use:. Sex Female Polysomnography (sleep) study * Roshan Márquez: PERFORM Event Display: Sleep Study Authored Date: [id number] * Roshan Márquez: PERFORM Event Display: Sleep Study Authored Date: [id number] Progress note * Roshan Márquez: PERFORM Event Display: Progress Note - Physician Authored Date: [id number] Physician Outpatient Note * 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 BULL WHEEL WORKER: PERFORM Event Display: Office Clinic Note Physician Authored Date: [id number] AARON BHATT :1950 Age:72 years Sex:Female Visit Date:12/09/2022 Primary Care Physician: Bhavesh Case MD History of Present Illness Aaron Alejim has a visit for ANAT follow-up. ?? Aaron was last seen by Dr. Mcclain on 01/18/2020. She has a medical history to include asthma, back pain, obesity, Bipolar, depression, CKD, chronic rhinitis, gout, HTN, GERD, heart failure, migraine,hyperparathyroidism, Sjogren's, and insomnia. ?? Diagnostic Polysomnogram on [...] to 12cm. PLM 2.3/hr. PLMa 1.5/hr. ?? At her last visit she was using CPAP 5-14 cm with good compliance and reduction in AHI. ?? Aaron tells me she has been using her CPAP consistently. She says she has fallen out of bed quitea few times so she now has a [...] waking feeling confused.??This started about 4-6 months ago.She takes clonazepam 0.5 mg QHS, trazodone 25 mg QHS, and venlafaxine 225 mg QHS and has been on this for years. ??She is NOT taking gabapentin or Seroquel any longer. She sleeps from about 9 pm to4-5 am. She wakes 1-2/night from unknown reason and she is up for up to 30 minutes. She is taking naps when not working for about 12 hours. She uses a nasal mask and tolerates this well and gets supplies as needed from [employer]. She is not snoring with CPAP, she is not waking choking or gaping. She is not having morning headaches or night sweats. She gets up to urinate only if she takes her diuretic. ?? She says she has not been having any restless legs or twitching that she is aware of. She says thiswent away when she put lavender soap under her sheets. She no longer experience restless legs in the car either. ?? ESS today 10/05 COMPLIANCE DATA REVIEWED WITH PATIENT: Dates 11/09/22-12/08/22, Used 30/30 nights, average use 7??hrsand 27??minutes. Mean pressure 6.5 cm, 90th percentile pressure 9.3??cm, time in large air leak 1??minute, AHI 3.9/hr. Physical Exam Vitals & Measurements HR:??80??(Peripheral)?? BP:??160/74?? SpO2:??98%?? HT:??158??cm?? WT:??98.70??kg?? BMI:??39.54?? BSA:??2.08?? GENERAL: answers questions appropriately, well groomed, obese. HEAD: normocephalic and atraumatic. EYES: non icteric LUNGS: CTA all clark. Good air movement throughout. CARDIO: RRR without murmur, gallop or thrill. NEURO: alert and oriented, normal gait. PYSCH: normal mood and affect. CUTANEOUS: no overt lesions or rashes.?? Assessment/Plan 1.??Obstructive sleep apnea syndrome??G47.33 ANAT diagnosed in 2012 with an AHI of 12.2/hr. She has been treated with CPAP 5- 14 cm. She has greatcompliance and reduction in AHI. She benefits from CPAP and continued use is recommended. She is advised to keep up with the routine maintenance of the machine and to clean/replace parts as needed. Ordered: [id number] CPAP, CPAP 5 cmH20, Frequency: Bedtime and Nap, WITH RBD AND SEIZURE MONTAGE, Obstructive sleep apnea syndrome Parasomnia, Future Order Follow-Up Appointment Request NCTY, *Est. 02/06/23 +/- 14 days, Future Order, In [facility] ?? 2.??Parasomnia??G47.50 She describes that for the past 4-6 months she is falling out of bed and having shaking in sleep.This does not sound consistent with RBD as she is not aware of dreaming and has not had any purposeful movement noted. She has a history of PLMS with her study in 2013 showing a PLMi of 41/hr but most recent study in 2019 did not show any PLMS. She is taking clonazepam 0.5 mg QHS and has been on this for many years. She used to be on gabapentin but stopped this well before these new symptoms. Shetakes trazodone 25 mg which is new but only for about a month (so symptoms started prior to this) and she has been on the same dose of venlafaxine for many years. Her symptoms do not sound that consistent with seizures. At this time I have recommended a titration study with RBD and seizure montage for further evaluation. She is advised to bring all her usual bedtime medications with her to take the night of the study.??Safety precautions were discussed at length. I will see her back to discuss the results as soon as they are available. I provided greater than 40 minutes in the care of this patient, more than half the time was spent in [id number] counseling. Ordered: [id number] SL CPAP, CPAP 5 cmH20, Frequency: Bedtime and Nap, WITH RBD AND SEIZURE MONTAGE, Obstructive sleep apnea syndrome Parasomnia, Future Order Follow-Up Appointment Request [facility], *Est. 02/06/23 +/- 14 days, Future Order, In [facility] ?? Future Orders [id number] SL CPAP, CPAP 5 cmH20, Frequency: Bedtime and Nap, WITH RBD AND SEIZURE MONTAGE, Obstructive sleep apnea syndrome Parasomnia, Future Order Problem List/Past Medical History Ongoing Asthma Atypical [...] apnea syndrome Parasomnia Perforation of nasal septum Persistent insomnia Phlebitis of superficial veins of [...] (10/13/1999)???Biopsy of breast (10/13/1993)??? section (05/14/1985)???Tonsillectomy Medications !-Augmentin 875 mg-125 mg oral tablet, 1 tab, Oral, every 12 hr albuterol 2.5 mg/3 mL (0.083%) inhalation solution, 2.5 mg= 3 mL, NEB, TID, PRN, 4 refills amoxicillin-clavulanate 875 mg-125 mg oral tablet aspirin 325 mg oral capsule, 325 mg= 1 cap, Oral, Daily clonazePAM 0.5 mg oral tablet, 0.5 mg= 1 tab, Oral, Daily, PRN Compression stockings, See instructions Diabetic shoes, See instructions furosemide 40 mg oral tablet gabapentin 100 mg oral capsule HumaLOG 100 units/mL injectable solution, See Instructions [...] 1 tab, Oral, Daily, PRN, 1 refills rosuvastatin 10 mg oral tablet, 10 mg= 1 tab, Oral, Daily SEROquel 25 mg oral tablet, 25 mg= 1 tab, Oral, Daily torsemide 20 mg oral tablet traMADol 50 mg oral tablet, 50 mg= 1 tab, Oral, every 12 hr, PRN traZODone 50 mg oral tablet triamcinolone 0.1% topical cream, 1 yonas, Topical, BID Trulicity Pen 1.5 mg/0.5 mL subcutaneous solution, See Instructions, 4 refills valACYclovir 1 g oral tablet, 1 g= [...] formulation 08/04/2015 Recorded Comments : Unit: Unknown 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 Date/Time 01/18/2020 09:00AM 1950 Service Dept. P_Sleep Medicine Provider ABRAHAM MCCLAIN MD, BOARD CERTIFIED SLEEP PHYSICIAN Insurance Med Primary[place] Insurance # : [id number] Med Secondary: FOR LIFE ( - MEDICARE SUPPLEMENT) Insurance # : [id number] Employer Name : RETIRED Med Durable Medical Equipment: NORIDIAN - SPECIALITY CLAIMS (MEDICARE [facility] A) Insurance # : [id number] Employer Name : [employer] MERCADO Med : [place] ([place]) Insurance # : [id number] Med : [place] - [facility] (MEDICARE) Insurance # : [id number] Prescription: [facility] - Member is eligible. details Chief Complaint SLEEP CLINIC Follow-Up CPAP/BIPAP Therapy Patient's Care Team Hr Director: ARUNA BURNS MD: [address] [place] [address], Resident Medical Officer: COLIN SUAZO DO: [address] [place] [address], , Resident Medical Officer: MARIBEL CAMPOS MD: [address] [place] [address], Primary Care Provider: BHAVESH CASE MD: [address] [facility] [place] [address], , Neurologist: TACOS SLATER MD: [address] [place] [address], Ph , Varnishing Unit Operator: DAVIE POLLACK MD Hr Director: GRETCHEN FELDER MD: [address] [place] [address], , Other: [facility]: [address] [facility] [place] [address], , Youth Minister: JAYANT PARKER: [address] [place] [address], Ph [phone], Patient's Pharmacies [facility] (MAIL-ORDER, ERX): [address] [facility] [address], , [facility] (ERX): [address] [facility] [address], Ph , Vitals 01/18/2020 08:54 am Ht: 5 ft 1.5 in (156.21 cm) Wt: 244 lbs Stated (110.68 kg) BMI: 45.4 Allergies Reviewed Allergies AMBIEN: - causes strange behavior with no memory of events BACTRIM: Nausea (Moderate) LORTAB: Abdominal pain - pt reports she is addicted to it MELATONIN: Hallucinations Reviewed 09/15/19 Medications Reviewed Medications aspirin 325 mg tablet Take 1 tablet(s) every day by oral route., start 11/01/2019 11/01/19 filled Colin Piña MD BD Ultra-Fine Cecy Pen Needle 32 gauge x 5/32 01/13/20 filled [facility] cevimeline 30 mg capsule Take 1 capsule(s) 3 times a day by oral route. 01/13/20 filled [facility] clonazePAM 0.5 mg tablet 01/14/20 filled [facility] ferrous gluconate 324 mg (38 mg iron) tablet Take 1 tablet(s) by oral route. 01/13/20 prescribed BHAVESH CASE MD HumaLOG KwikPen (U-100) Insulin 100 unit/mL subcutaneous 01/13/20 filled [facility] hydroxychloroquine 200 mg tablet Take 1 tablet(s) twice a day by oral route. 01/13/20 prescribed BHAVESH CASE MD ipratropium 0.5 mg-albuteroL 3 mg (2.5 mg base)/3 mL nebulization soln 3 mL 4 times a day by inhalation route as needed., start 11/01/2019 08/19/19 filled [facility] Lantus Solostar U-100 Insulin 100 unit/mL (3 mL) subcutaneous pen Inject 30 unit(s) every day by sub-q route. 01/13/20 filled [facility] leflunomide 10 mg tablet Take 2 tablet(s) every day by oral route. 01/13/20 prescribed BHAVESH CASE MD memantine 5 mg tablet Take 1 tablet at bedtime for 1 month then twice a day 01/13/20 filled [facility] Nucala 100 mg/mL subcutaneous auto-injector Inject 100 mg by subcutaneous route. 12/07/19 filled [facility] omeprazole 40 mg capsule,delayed release Take 1 capsule(s) twice a day by oral route. 01/13/20 filled [facility] Restasis 0.05 % eye drops in a dropperette 12/14/19 filled [facility] rizatriptan 10 mg tablet take 1 tablet at onset of headache. May repeat in 2 hours if needed 01/13/20 filled [facility] rosuvastatin 10 mg tablet Take 1 tablet(s) every day by oral route. 01/13/20 filled [facility] spironolactone 25 mg tablet Take 1 tablet(s) every day by oral route for 90 days. 01/13/20 filled [facility] Trulicity 1.5 mg/0.5 mL subcutaneous pen injector Inject 0.5 mL every week by sub-q route for 28 days. 01/13/20 filled [facility] venlafaxine ER 150 mg capsule,extended release 24 hr Take 1 capsule(s) every day by oral route. 01/13/20 filled [facility] Vaccines Vaccines not reviewed (last reviewed 10/25/2019) Vaccine Type Date Amt. Route Site [facility] Lot # Mfr. Exp. Date Date on VIS VIS Given Corner Bead Operator Diphtheria, Tetanus, Pertussis Tdap 01/22/12 0.5 mL Subcutaneous Hepatitis B Hep B, adult 08/08/16 0.5 mL Subcutaneous Deltoid, Right [id number] 04/19/17 [place] Hep B, adult 03/06/16 1 mL Subcutaneous Deltoid, Right [id number] 04/22/17 Hep B, adult 01/31/16 0.5 mL Subcutaneous Deltoid, Right [id number] 08/12/16 [place] Influenza influenza, injectable, quadrivalent 07/13/19 [facility] influenza, high dose seasonal 07/21/17 influenza, injectable, quadrivalent, preservative free 07/10/16 0.5 mg Subcutaneous Thigh, Right [id number] 03/13/17 [place] influenza, seasonal, injectable, preservative free 06/28/14 0.5 mL Subcutaneous Deltoid, Left [id number] 04/08/15 [place] influenza, seasonal, injectable, preservative free 06/29/13 0.5 mL Subcutaneous Deltoid, Right [id number] 04/11/14 [place] influenza, seasonal, injectable, preservative free 10/23/12 0.5 mL Subcutaneous Deltoid, Left [id number] 04/11/13 influenza, seasonal, injectable, preservative free 07/16/11 0.5 mL Subcutaneous Deltoid, Left [id number] Pneumococcal pneumococcal conjugate PCV 13 12/30/16 0.5 mL Subcutaneous Dorsogluteal, Left [id number] 01/11/18 [place] pneumococcal polysaccharide [id number] 07/10/16 0.5 mL Subcutaneous Deltoid, Left [id number] 04/12/17 [place] Zoster zoster live 12/20/15 0.65 mL Intraarterial Right Upper Arm [id number] 09/07/16 [facility] Problems Reviewed Problems Polyp of colon Type 2 diabetes mellitus without complication Hypercholesterolemia Gout Body mass index 30+ - obesity Bipolar affective disorder, current episode depression Persistent insomnia Depressive disorder Obstructive sleep apnea syndrome Restless legs Migraine without aura Hypertensive disorder Chronic diastolic heart failure Phlebitis of superficial veins of lower extremity, Left Superficial thrombophlebitis Asthma Gastroesophageal reflux disease Cholelithiasis without obstruction Chronic kidney disease stage 2 Intertrigo Sj??gren's syndrome Muscle pain Dizziness Memory impairment Dyspnea Atypical chest pain History of subarachnoid hemorrhage Body mass index 40+ - severely obese Right side sciatica Family History Family History not reviewed (last reviewed 11/05/2019) Father - Heart disease - - Obesity - Chronic obstructive lung disease - Parkinsonism Brother - Myocardial infarction Social History Reviewed Social History ED/MedSurg/ICU/S[facility] Services[facility] General Social History List Advance directive: Y Tobacco Smoking Status: Former smoker (Notes: smoked for 5 years 1/2 ppd) Tobacco smoke exposure: N Chewing tobacco: none Any Vapor tobacco use?: N Any marijuana use?: N Illicit drug use?: N Use IV drugs?: N Alcohol intake: None Have you fallen in the last 12 months?: Y (Notes: fell VIRAL) Did the fall result in an injury?: Y Do you feel safe at home?: Y Any signs of neglect or abuse?: no signs of neglect or abuse noted Tobacco-years of use: 5 E-cigarette/Vape Status: Never used electronic cigarettes Most Recent Tobacco Use Screenin09/15/2019 Smoking - patient's current pack years?: <=10 Pack Years Caffeine intake: Occasional (Notes: Iced Tea: 4 cups/week) Passive smoke exposure?: N Drug Use: N 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 Are you currently employed?: N Live alone or with others?: with others (Notes: - 1 adult child) Hard of hearing or deaf in one or both ears?: N Language Difficulties: No Blind or serious difficulty seeing: N (Notes: wears glasses) Guns present in home: N Animal exposure?: Y Exercise level: Moderate Hand Dominance: Right Surgical History Surgical History not reviewed (last reviewed 11/10/2019) Tonsillectomy Open reduction of fracture of lateral malleolus of fibula with internal fixation - 10/20/2018 - L distal fibula Removal of implant - 06/13/2015 Cataract Surgery - 09/13/2014 - Right; left on 08/23/2014 Gastric Bypass - 10/13/2002 Abdominoplasty - 10/13/1999 Reduction of large breast - 10/13/1999 Breast Biopsy - 10/13/1993 - Bilateral section - 05/14/1985 NEONATAL PEDIATRIC NURSE History NEONATAL PEDIATRIC NURSE History not reviewed (last reviewed 11/05/2019) Most Recent Mammogram: 06/17/2019. Obstetric History Obstetric History not reviewed (last reviewed 11/05/2019) TOTAL FULL PRE AB. I AB. 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 PREVIOUS SLEEP EVALUATION: She has long standing history of Obstructive Sleep Apnea, diagnosed approximately 2002. Those records are not available. Diagnostic Polysomnogram on 05/31/2013 (251 lbs, bmi 47) was repeat diagnostic test to re-qualify for CPAP. Mild Obstructive Sleep Apnea ad Severe Periodic Limb Movement Disorder. AHI 12.2/hr. REM AHI21.5/hr. Haroon SpO2 87% and Mean SpO2 95%. Arousal index 35.3/hr. PLM index 41.3/hr. PLM Arousal index 35.7/hr. No significant arrhythmias, Tunde-Wong Respirations, parasomnias, or abnormalities on limited EEG montage. Last visit with Justa Hernández BULL WHEEL WORKER on 05/01/17 on auto cpap 6 to 16cm with nearly nightly usage and 3h46m nightly, Mean SpO2 pressure 7.3cm 90th%tile pressure 8.8cm, tx AHI 2.6/hr. Patient having difficulty with insomnia. She transitioned to my care on 11/12/17, at that time, Machine Download Data showed use of REMSTAR 560 respironics auto cpap CPAP Settings: 6 to 16 CmH2O Date Range: 10/11/17 to 11/09/17 Days with Usage >=4 hours: 10 % Avg Usage per Day Used: 2h52m Auto CPAP Mean Pressure: 7.1cm Avg Device Pressure <= 90% of time: 8.1cm Avg Time in Large Leak Per Day: 19sec Avg AHI: 1.3/hr FL 0.3/hr VS index 6.7/hr. noted she had poor sleep hygiene which was affecting her cpap usage. She returned 05/11/19 with intention of re-starting cpap but needed help due to her dry mouth 2/2 sjorgren's, we got her new machine at apap 5 to 14cm and titration PSG. Titration PSG on 05/29/19 (wt 277 lbs/bmi 51.5) tested cpap 5 to 8cmH2O. Optimal pressure was not found as patient did not enter REM sleep on night of sleep study. However,CPAP 7 cm/H2O resolved significant apneas, hypopneas, snoring and desaturations including during Supine NREM and Right Lateral NREM sleep. Adequate oxygenation was maintained on CPAP 6cmH2O and above. Resmed Airfit F20, Resmed Airfit N20, Nasal Mask in Size Small, showed acceptable leak profile. Given tendency with dry mouth and using nasal mask, lowest effective pressure should be utilized toavoid side effects of worsening dry mouth and mouth leak at higher pressures. No evidence of Periodic Limb Movement Disorder seen during this study Low sleep efficiency at 75% and increased sleep fragmentation with arousal index 20 per hour. Patient reports frequent pain disrupting her sleep, which is similar to what she experiences at home Recommend apap 6 to 12cm. PLM 2.3/hr. PLMa 1.5/hr. TODAY: using apap 5 to 14cm via n20 medium nasal mask see A&P for details ROS Additionally reports: A 10-point REVIEW OF SYSTEM was obtained and reviewed, includes CONSTITUTIONAL, EYES, NOSE, THROAT,RESPIRATORY, HEART, GASTROINTESTINAL, UROLOGIC, MUSCULOSKELETAL, PSYCHIATRY, SKIN systems. Pertinent symptoms are discussed in history, otherwise negative. dry mouth has gone away mouth sores are much better freq daytime urination/freq night time urination 2 to 4 times joint pain pain is much better than before we confirmed meds from her pillbox today: asa ferrous gluconate lefunomide vit D3 50,000 iu. 3x weekly venlafaxine lasix hydroxychorloquein omeprazole rousavastatin spironolactone memantine qHS clonazepam PRN riztriptan 10mg PRN headaches she also has injections/insulin for diabetes and eye drops. Physical Exam Patient is a 69-year-old female. GENERAL: well appearing, appearing stated age, no acute distress, obese build HEENT: atraumatic skull, anicteric RESPIRATORY: quiet respiration, able to speak in full sentences without dyspnea, no accessory muscle use, SKIN: no facial skin rash, no facial skin lesions PSYCHIATRIC: well groomed, fluent speech, good insight, linear thought process, good eye contact, balanced affect NEUROLOGIC: alert, oriented, symmetric facial expression Clinical Data Reviewed: 1. [place] Sleepiness Scale: 12 out of 24, about same as before, but pt notes subjective improvement 2. Sleep study results as above. 3. Machine Download Data: Respironics Dreamstation Auto CPAP PAP Settings: Auto CPAP5 to 14 CmH2O Date Range: 12/16/19 to 01/14/20; used 30/30 days Days with Usage >=4 hours: 63.3 % vs 30% last visit not being able to use due to mouth sores Avg Usage per Day Used: 6 Hours 5 Minutes, vs 4hs last visit Mean/Median Pressure: 6.0 cmh2O 90th-tile/95th-tile Pressure: 7.7 cmH2O Median-90th%tile Leak: 1m Average AHI: 4.7 per hour Normal flow limitation index. Normal vibratory snore index. Daily details do not show significant periods at maximum pressure 4. Lab results as outlined. [facility] K 4.3 Na 139 CO2 26 Cr 1.5 Hb 12.4 MCV 87 12/16/18 vit D 20.6 Vit A 52.8 vit E 5.6 B12 313 Assessment / Plan Telehealth Visit conducted via continuous, real-time Video and Audio connection (start time 8:58am,end time 9:37am), with patient at home and physician at home. Verbal consent was obtained to conduct this telehealth visit in place of in- person visit due to Covid-19 precautions, and patient is aware this visit will be billed to patient's health insurance. I provided greater than 40 minutes in the care of this patient, more than half the time was spent in [id number]-[id number] counseling. 1. Obstructive sleep apnea syndrome - Hx of Mild ANAT at 241 lbs, may be more severe now due to wt gain now at 277 lbs, in patient w/ bipolar affective disorder, sjorgren's syndrome, hypertension, morbid obesity BMI 51, chronic diastolic heart failure, depression, restless legs syndrome, psychophysiologic insomnia, who returns wanting to try treating her ANAT again. She stopped using cpap due to difficulty w/ dry mouth 2/2 to her Sjogren's Syndrome dx about a yearago. 05/11/19: d/w oa vs cpap, due to her BMI, cpap is 1st line, will order new cpap, but if that does not work, will use oa as 2nd choice. also given prior difficulties on cpap, will start w/ home acclimation then titration PSG. in-lab study ordered due to heart failure and persistent difficulties in past w/ cpap therapy. 08/10/19: continue apap 5 to 14cm for now as her cpap is not going up to the higher pressures. if they are, can dec to apap 6 to 12cm from titration PSG recommendations for her comfort. she has met cpap compliance and benefiting from cpap, tho her other medical conditions including pain and mouth sores affects her sleep. 11/10/19: cont apap 5 to 14cm. when she's able to use cpap, feels more alert, feel more energy during the day, but mouth sore from Sjorgren's can make it difficult to use. on omega 3 fatty acids whichhelps her dry eyes and joint pains. 01/18/20: cont apap 5 to 14cm, usage significantly improved after pt increased omega 3 dose and mouthsores and dry mouth got mch better. G47.33: Obstructive sleep apnea (adult) (pediatric) 2. Sj??gren's syndrome - 08/10/19: she is on treatment for this, and tried various things, had flareup of mouth sores which made cpap use difficult for several days. she will use cpap as tolerated. also will work on reducingstress/self care which may help w/ her chronic conditions. 11/10/19: this is stable. 01/18/20: stable, in fact, dry mouth/mouth sores are better w/ supplements so she does feel subjectively better M35.00: Sicca syndrome, unspecified 3. Restless legs - PLMs very severe on diag PSG but normal on titration PSG. 05/11/19: will f/u nxt visit on sxs after treating ANAT. also reports leg cramps so she may benefit from magnesium supplementation 08/10/19: on further discussion w/ pt, she is already taking pramipexole 1mg bid which is very highdose for RLS. she still gets it about once a week and it can be quite severe. she thinks it may be related to anxiety, and uses clonazepam PRN for this and actually tries to go to sleep. we'll treat her leg cramps w/ Mg and see how she does with stress reduction strategies. 11/10/19: using high absorption Mg 100mg qPM and helping her leg cramps a lot. legs are not moving nearly as much now that cramps are better. Ferr low at 25, she should take her bariatric MVI with Fe.she's taking b12 5000mcg sublingual and vit B12 level > 1000 so will advise her to stick to what's in the MVI. 01/18/20: cont high absoprtion Mg 100mg bid, helping her leg cramps and her RLS. she is actually OFF pramipexole, we did detailed med reconciliation today and learned this. also using bar of soap w/ Mgunder her sheets and she feels this also helps her RLS G25.81: Restless legs syndrome Patient Instructions Continue using auto cpap therapy at same setting, 5 to 14cm. It is working well. You are doing really well on High absorption magnesium 1 tab twice daily; omega 3 fatty acid 2000mgtwice daily, women's complete multivitamin (vitafusion); calcium citrate 600mg twice daily; ferrousgluconate 325mg once daily. You notice improvement in your dry mouth and more sores and your energyis much better. You are using this to the best of your ability and you're doing great! It has reduced the apneas from 12 times per hour down to 4/hr. Keep using it as you are able. Your restless legs are improved. You think the high absorption magnesium is helping with the leg cramps. You also use a bar of soap with magnesium under your sheets and you feel that helps your restless legs. THis was a remedy you heard from a friend. You stopped taking topamax and pramipexole, after you consulted with the pharmacist at [facility] [place] (thru your rheumatology office). You think now that you have actually been off of pramipexole a long time ago. Not getting restless attacks which was once a month before. You now only feel rare episodes of restless hands. You are still clonazepam 0.5mg x 2 tabs on most nights, but you are trying to use relaxation techniques to help you fall asleep. The other consideration is when you run out of your regular women's multivitamin, consider switching to a Bariatric Multivitamin. [employer] makes a good one that comes with iron, which you can take. The bariatric multivitamin with iron would replace vitamin B12, ferrous gluconate, calcium. Make sure you pick the one with iron. https://[employer] la Carte/tyur-gijsr-hxzuegmxi-multivitamin-capsule/ I would keep taking your vitamin D, omega 3 fish oil and magnesium on top of the bariatric multivitamin. Keep working on stress reduction. Find ways to fill up your social, physical activity, nourishment and spiritual needs. Get relief with caregiving duties. 6 month follow up. please call sooner w/ questions or concerns. Discussion Notes Remember to always take precautions on drowsy driving. If you experience sleepiness while driving, find a safe area to [employer] and take a break. Research suggests taking a power nap (15 to 20 minutes) and/or coffee (or caffeine containing food such as dark chocolate) may be effective aides. As a lways, you should use your judgement on whether to drive at all, if you are sleep deprived or feeling sleepy. Thank you for the kind opportunity to participate in your medical care. You expressed good understanding of your diagnosis and treatment, and agreed to proceed with the plan we discussed together. Ifyou have any questions or concerns prior to your next appointment, please call Sleep Clinic. Return to Office BHAVESH CASE MD for Follow Up 20 at [facility] [place] on 01/24/2020 at 10:40 AM DAVIE POLLACK MD for Follow Up 30 at [facility] on 02/28/2020 at 09:00 AM TACOS SLATER MD for Follow Up 20 at [facility] on 04/13/2020 at 08:20 AM to see ABRAHAM MCCLAIN MD, Board Certified Sleep Physician at [facility] on or around 07/19/2020 Electronically Signed on 12/06/22 08:20 AM Roshan Márquez Patient Care team information Care Team Personnel Name: Bhavesh Case MD Position: Physician Member Role: Informed Provider Address: Address: [address] [address]- Care Team Related Persons Name: JERED STUBBS Address: Home Name: VICKIE BHATT III Address: Home [address], [id number]
--- OUTSIDE RECORDS SUMMARY | 2023-11-24 02:05 | XMS_ITS | Continuity of Care Document ---
Author Name Unknown Organization [facility] Address [address] [place] [address] Care Team Providers Care Director Adult Name Role Phone Leroy Case Primary Care Physician [phone] [facility] Date(s): 01/01/23 - 01/01/[address] [address] Encounter Diagnosis Middle ear effusion(Discharge Diagnosis) - 01/01/23 Discharge Disposition: Home or Self Care Attending Physician: Jhonatan Parsi MD Admitting Physician: Jhonatan Paris MD Allergies, [...] Spine Lumbar w/o Contrast 11/13/22 Functional Status 01/01/23 Recent Travel History No recent travel Other [...] Comment: Unit: Unknown 3Result Comment: Unit: Unknown 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, 157, cm, 10/04/22 11:31:00 EST, Height/Length [...] hours, # 2 tab, 0 Refill(s), Pharmacy: [facility], 157, cm, 10/04/22 11:31:00 EST, Height/Length Dosing, 98, kg, 10/04/22 11:31:00 EST, Weight Dosing Start Date: 12/31/22 Status: Ordered furosemide 40 mg oral tablet 90 tab, 0 Refill(s) Start Date: 11/24/22 Status: Ordered gabapentin 100 mg oral capsule 100 mg = 1 cap, Oral, TID, # 90 cap, 3 Refill(s), Pharmacy: [facility], 157, cm, 10/04/2211:31:00 EST, Height/Length Dosing, [...] pain, # 30 tab, 0 Refill(s), Pharmacy: [facility], 157.48, cm, 05/13/22 10:43:00 EDT, Height/Length [...] Daily, # 30 tab, 4 Refill(s), Pharmacy: [facility], 157, cm, 10/04/22 11:31:00 EST, Height/Length [...] wheezing, # 8.5 g, 1 Refill(s), Pharmacy: [facility], 157.48, cm, 05/13/22 10:43:00 EDT, Height/Length [...] hours, # 12 tab, 1 Refill(s), Pharmacy: [facility], 157, cm, 10/04/22 11:31:00 EST, Height/Length Dosing, 98, kg, 1... Start Date: 12/17/22 Status: Ordered rOPINIRole 1 mg oral tablet See Instructions, take 1 PO two hours before bedtime, # 90 tab, 1 Refill(s), Pharmacy: [facility], 157, cm, 10/04/22 11:31:00 EST, Height/Length [...] pain, # 28 tab, 0 Refill(s), Pharmacy: [facility] Start Date: 03/14/22 Status: Ordered traZODone [...] Daily, # 30 tab, 0 Refill(s), Pharmacy: [facility], 157, cm, 10/04/22 11:31:00 EST, Height/Length Dosing, 98, kg, 10/04/22 11:31:00 EST, Weight Dosing Start Date: 11/14/22 Status: Ordered venlafaxine 75 mg oral capsule, extended release 75 mg = 1 cap, Oral, Daily, # 30 cap, 0 Refill(s), Pharmacy: [facility], 157, cm, 10/04/22 11:31:00 EST, Height/Length Dosing, 98, kg, 10/04/22 11:31:00 EST, Weight Dosing Start Date: 11/14/22 Status: Ordered Mental Status 01/01/23 Eye Opening Response [place] Spontaneous ly Best Verbal Response [place] Oriented Best Motor Response Papi Obeys keenanan ds Papi Coma Score 15 Problem List Condition Confirmation Course Effective Dates [...] polyps, mild diverticulosis. 1st one done in [place] ago pt reports polyps removed 3L distal fibula 4Patient reported metal in left foot and metal in back Vital Signs Most recent to oldest [Reference Range]: 1 Temperature Temporal Artery [36-38 Deg C ] 36.8 Deg C (01/01/23 4:13 AM) Peripheral Pulse Rate [60-100 bpm] 98 bp m (01/01/23 4:13 AM) Respiratory Rate [12-24 br/min] 16 br/mi n (01/01/23 4:13 AM) Blood Pressure [90-140/60-90 mmHg] 189/8 2mmHg *HI* (01/01/23 4:13 AM) Weight Dosing 98.80 kg (01/01/23 4:18 AM) Weight Estimated 98.80 kg (01/01/23 4:13 AM) Height/Length Dosing 157.000 cm (01/01/23 4:18 AM) Height/Length Estimated 157.000 cm (01/01/23 4:13 AM) Social History Social History Type Response Tobacco Former tobacco user Tobacco Use:. Sex Female Hospital Discharge Instructions Patient Education 01/01/2023 03:41:33 Ear Drops, Adult Ear Drops, Adult You have been diagnosed with a condition that requires you to put drops of medicine into one ear orboth ears. This sheet gives you information about how to use ear drops. Your health care provider may also give you more specific instructions. Supplies needed: ??? Cotton balls. ??? Ear drops. How to put ear drops in your ear 1. Wash your hands thoroughly for 20 seconds with soap and water. If soap and water are not available, use hand semiconductor lab technician. 2. Make sure your ears are clean and dry. If there is any earwax or drainage at the outer part of the ear canal, wipe it out gently with a cotton-tipped swab. 3. Warm up the medicine by holding it in your hand for a few minutes. 4. Gently shake the bottle to mix the ear drops. 5. Use the dropper to draw up the ear drops. 6. Hold the dropper above your ear canal and put the drops in the affected ear as instructed. Do not put the dropper into your ear at any time. It may help to pull the upper part of the ear up and back while you put the drops in. Doing this will straighten out the ear canal so the medicine can get into the canal more easily. 7. To make sure your ear soaks up the ear drops, do either of these things: ??? Lie down with the affected ear facing up for 10 minutes. This will cause the drops to stay in the ear canal and fill the canal. ??? Gently put a cotton ball in your ear canal. Leave enough of the cotton ball out so it can be easily removed. Do not push the cotton ball down into your ear with a cotton-tipped swab or other instrument. You can remove the cotton ball once the medicine has been absorbed by your ear, or after 15???30 minutes have passed. 8. If both ears need the drops, repeat the procedure for the other ear. Your health care provider will let you know if you need to put drops in both ears. 9. Wash your hands with soap and water for 20 seconds after using ear drops. If soap and water are not available, use hand semiconductor lab technician. Follow these instructions at home: ??? Use the ear drops for as long as directed by your health care provider, even if you begin to feel better. ??? Always wash your hands for 20 seconds before and after handling the ear drops. ??? Keep the ear drops at room temperature. ??? Do not wash out (irrigate) your ears unless instructed by your health care provider. ??? Keep all follow-up visits as told by your health care provider. This is important. Contact a health care provider if: ??? Your condition gets worse. ??? Your pain or itching gets worse. ??? You notice any unusual drainage from your ear, especially if the drainage has a bad smell. ??? You have new trouble hearing. ??? You develop a rash around your ear. ??? You have used the ear drops for the amount of time recommended by your health care provider, but your symptoms have not improved. Get help right away if: ??? You experience a form of dizziness in which you feel as if the room is spinning and you feel like you might vomit (vertigo). ??? The outside of your ear becomes red or swollen. ??? You develop a severe headache with or without neck stiffness. Summary ??? Ear drops are a medicine that is placed in the ear. ??? Put drops in the affected ear as told by your health care provider. ??? Use the ear drops for as long as directed by your health care provider, even if you begin to feel better. ??? Keep all follow-up visits as told by your health care provider. This is important. This information is not intended to replace advice given to you by your health care provider. Make sure you discuss any questions you have with your health care provider. Document Revised: 11/22/2020 Document Reviewed: 07/26/2020 Elsevier Patient Education ?? 2021 [employer] Follow Up Care 01/01/2023 04:13:00 With:Leroy Case MD Address: [address] [address]- When:1 month Physician Emergency department Note * Jhonatan Paris MD: PERFORM Event Display: ED Note Physician Authored Date: [id number] AARON BHATT :1950 Age:72 years Sex:Female Visit Date:01/01/2023 Primary Care Physician: Leroy Case MD Basic Information Time Seen: Jhonatan Paris MD / 01/01/2023 04:22 Chief Complaint Pt seen at PCP office for excessive ear wax to L ear. Pt had large amount of wax removed and awoke tonight with throbbing ear pain. Endorses feeling under water. Tylenol @ 0100 without relief. Currently being treated for yeast infection History Of Present Illness: 72-year-old female past medical history of bipolar, obesity, CHF, CKD, heart failure,??hyperparathyroidism,??Sjogren's??presents with left ear pain. ??Patient states she??had earwax removed from the left ear at PCPs office earlier today, she had a bit of pain??during the procedure but did not have any pain after she left the office and was feeling well??up until 11 PM and she developed worsening pain in the left ear.?? No drainage from the ear.?? Took 800 of ibuprofen and Tylenol prior to arrival. Review of Systems: Ear pain Physical Exam Vitals & Measurements T:??36.8?C ??(Temporal Artery)?? HR:??98??(Peripheral)?? RR:??16?? BP:??189/82?? HT:??157.000??cm?? WT:??98.80??kg??(Estimated)?? Pain Score:??6?? O2 Therapy:??Room air?? General: Alert and oriented, well nourished,?No??acute distress Eye: PERRL, EOMI,?Normal??conjunctiva HENT: Right ear tympanic membrane unremarkable, left ear tympanic membrane appears to have an effusion but no obvious erythema??around the TM,??there is also some erythematous external ear tissue Medical Decision Makin-year-old female presents with left ear pain. ??She states she had some earwax removed out of theleft ear??earlier at primary care's office, left the office was feeling better??did not have much pain in the ear,??and then the pain started around 11 PM last night. ??Already took Tylenol and ibuprofen prior to arrival. ??Vitals are stable.?? Right TM is unremarkable. ??The left TM??does have what looks to??be an effusion of the left??inner ear, however there is no??significant erythema noted to the tympanic membrane. ??The external ear??canal itself has some irritated and??erythematous tissue. ??This is most likely secondary??to the ear wax being removed, however given that she is??having worsening pain in the ear, she was covered??for possible otitis??externa with??Ciprodex.?? At this time,??I do not believe she has a concurrent otitis media??and that the pain may be also secondary tojust an effusion, will not prescribe??oral antibiotics at this time. ??Furthermore, she just was onantibiotics and ended up with a yeast infection which is why she went to primary care to begin with.?? Follow back up with primary care for reevaluation of the left ear. ??Mjhe-ine-mkjgomb medications as needed symptoms. ??Discharge stable condition return precautions. Procedure No Qualifying Data Assessment/Plan 1.??Middle ear effusion??H65.90 Ordered: Discharge Patient, 01/01/23 4:40:00 EDT, Home Independently, Constant Indicator ?? Orders: Ciprodex 0.3%-0.1% otic suspension, 4 drops, Ear-Both, Susp, BID for 7 days, First Dose: 01/01/23 4:34:00 EDT, Stop Date: 01/07/23 20:59:00 EDT, Physician Stop, STAT Patient Education Ear Drops, Adult Follow Up With When Contact Information Leroy Case MD Within [address] [address]- Additional Instructions: Medication Reconciliation Unchanged albuterol (albuterol 2.5 mg/3 mL (0.083%) inhalation solution)3 [place] Nebulized inhalation (inhale using nebulizer) 3 times a day as needed as needed for wheezing. Refills: 4. ?? albuterol (ProAir HFA 90 mcg/inh inhalation aerosol)1 Puffs Inhale (breathe in) every 6 hours as needed as needed for wheezing. Refills: 1. ?? albuterol (ProAir RespiClick 90 mcg/inh inhalation powder)1 EA, INHALE ONE PUFF BY MOUTH EVERY 6 HOURS NEEDED. ?? aspirin (aspirin 325 mg oral capsule)1 Capsules Oral (given by mouth) every day. ?? clonazePAM (clonazePAM 0.5 mg oral tablet)1 tab Oral (given by mouth) every day as needed other (see comment). Take as needed for 90 days. ?? Durable Medical Equipment for Prescription (Compression stockings)3 pair 20- 30MMHGDX:(I80.9). Refills: 0. ?? Durable Medical Equipment for Prescription (Diabetic shoes)NEEDS NEW PAIR OF DIABETIC SHOES DX: E11.9. Refills: 0. ?? fluconazole (Diflucan 150 mg oral tablet)1 tab Oral (given by mouth) once. repeat dose in 72 hours.Refills: 0. ?? furosemide (furosemide 40 mg oral tablet)90 tab. ?? gabapentin (gabapentin 100 mg oral capsule)1 Capsules Oral (given by mouth) 3 times a day. Refills:3. ?? hydroxychloroquine (hydroxychloroquine 200 mg oral tablet)Oral (given by mouth). 200 Unknown, 1 Refill(s), Take 200 mg by mouth Twice daily.. ?? hydroxychloroquine (Plaquenil 200 mg oral tablet)2 Refill(s), TAKE 1 TABLET TWICE A DAY (EYE EXAM AT LEAST ONCE A YEAR WHILE ON THIS MEDICATION). ?? hyoscyamine (hyoscyamine 0.125 mg sublingual tablet)120 EA, PLACE ONE TABLET UNDER THE TONGUE EVERY4 HOURS NEEDED FOR CRAMPING BEFORE MEALS AND BEDTIME. ?? ibuprofen (ibuprofen 800 mg oral tablet)1 tab Oral (given by mouth) every 8 hours as needed as needed for pain. Refills: 0. ?? insulin glargine (Lantus Solostar Pen 100 units/mL subcutaneous solution)inject 30 units daily. ?? insulin lispro1 Refill(s), Humalog Kwikpen. Inject 14-26 Units into the skin 3 times daily with meals. ?? insulin lispro (HumaLOG 100 units/mL injectable solution)per patient sliding scale. ?? insulin lispro (insulin lispro 100 units/mL injectable solution)4 Refill(s), Humalog Kwikpen. Inject 14-26 Units into the skin 3 times daily with meals. ?? insulin pen needles 32G 4 mmSee instructions. 1 Refill(s), USE 5 PEN NEEDLES DIRECTED DAILY. ?? lidocaine topical (lidocaine 2% mucous membrane solution)2 Refill(s), make magic mouthwash mix withgeneric benadryl liquid 100ml and maalox 1:1:1 15ml of mixed solution swish and spit 4x/day. ?? lisinopril (lisinopril 20 mg oral tablet)1 tab Oral (given by mouth) every day. Refills: 4. ?? meclizine (meclizine 25 mg oral tablet)Oral (given by mouth) 2 times a day. 25 Unknown, 1 Refill(s), Take 25 mg by mouth 3 times daily as needed.. ?? memantine (memantine 5 mg oral tablet)1 Refill(s), Waiting until procedure is done. ?? mepolizumab (Nucala Prefilled Autoinjector 100 mg/mL subcutaneous solution)1 unknown unit. ?? omeprazole (omeprazole 40 mg oral delayed release capsule)1 Capsules Oral (given by mouth) 2 times a day. ?? omeprazole (omeprazole 40 mg oral delayed release capsule)Oral (given by mouth). 40 Unknown, 1 Refill(s), Take 40 mg by mouth 2 times daily.. ?? Other Prescription (PLAQUENIL 200 MG TABLET) ?? QUEtiapine (SEROquel 25 mg oral tablet)1 tab Oral (given by mouth) every day. at bedtime. ?? rizatriptan (rizatriptan 10 mg oral tablet)1 tab Oral (given by mouth) every day as needed as needed for migraine headache. may repeat dose every 2 hours up to a maximum of 30 mg in 24 hours. Refills: 1. ?? rOPINIRole (rOPINIRole 1 mg oral tablet)take 1 PO two hours before bedtime. Refills: 1. ?? rosuvastatin (rosuvastatin 10 mg oral tablet)1 tab Oral (given by mouth) every day. ?? torsemide (torsemide 20 mg oral tablet) ?? traMADol (traMADol 50 mg oral tablet)1 tab Oral (given by mouth) every 12 hours as needed as neededfor pain. Refills: 0. ?? traZODone (traZODone 50 mg oral tablet)30 EA, TAKE ONE TABLET BY MOUTH AT BEDTIME. ?? triamcinolone topical (triamcinolone 0.1% topical cream)1 Application Topical (on the skin) 2 timesa day. Apply a thin layer to the affected area(s). ?? valACYclovir (valACYclovir 1 g oral tablet)1 tab Oral (given by mouth) 3 times a day. Take for 7 days. ?? venlafaxine (venlafaxine 150 mg oral tablet, extended release)1 tab Oral (given by mouth) every day. Refills: 0. ?? venlafaxine (venlafaxine 75 mg oral capsule, extended release)1 Capsules Oral (given by mouth) every day. Refills: 0. Problem List/Past Medical History Ongoing Asthma Atypical [...] Obesity: Father. Parkinsonism: Father. Electronically Signed on 01/01/23 04:42 AM Jhonatan Paris MD Emergency department Discharge instructions * Jhonatan Paris MD: PERFORM Event Display: ED Discharge Information Authored Date: [id number] AARON BHATT :1950 Age:72 years Sex:Female Visit Date:01/01/2023 Primary Care Physician: Leroy Case MD Discharge Instructions We would like to thank you for allowing us to assist you with your healthcare needs. The following includes patient education materials and information regarding your injury/illness. Diagnosis from Today's Visit Middle ear effusion Discharge Vitals Temperature??(Temporal Artery) 98.2 ??F (36.8 ??C) Heart Rate??(Peripheral) 98 Respiratory Rate?? 16 Blood Pressure?? 189/82?? Height?? 61.81 in (157.000 cm) Weight??(Estimated) 217.85 lb (98.80 kg) Allergies Cat Hair??(Dyspnea, Other (See Comments)) clindamycin??(Diarrhoea) ALMOND??(Other) metFORMIN??(Unknown) mycophenolate mofetil??(Unknown) pilocarpine ophthalmic??(Unknown) sulfamethoxazole-trimethoprim??(Nausea) Ambien Bactrim Lortab acetaminophen-hydrocodone??(Abdominal pain) melatonin??(Hallucinations) zolpidem What to Do Next You Need to Schedule the Following Appointments Follow Up with??Leroy Case MD When:??Within 1 month Where: [facility] [place] [id number] Upcoming Scheduled Appointments 2022 3:40 PM EDT ?? Friday 3:30 PM EDT ?? You were [...] Much When Why Instructions Next Dose Unchanged albuterol (albuterol 2.5 mg/ 3 mL [...] Oral (given by mouth) Every day Unchanged clonazePAM (clonazePAM 0.5 mg oral tablet) 1 tab Oral (given by mouth) Every day as needed for other (see comment) Take as needed for 90 days ?? Unchanged Durable Medical Equipment for Prescription (Compression stockings) See instructions Phlebitis of superficial veins of lower extremity 3 pair 20-30MMHGDX:(I80.9) ?? Unchanged Durable Medical Equipment for Prescription (Diabetic shoes) See instructions Type 2 diabetes mellitus without complication NEEDS NEW PAIR OF DIABETIC SHOES DX: E11.9 ?? Unchanged fluconazole (Diflucan 150 mg oral tablet) 1 tab Oral (given by mouth) Once Yeast infection of the vagina repeat dose in 72 hours ?? Unchanged furosemide (furosemide 40 mg oral tablet) 90 tab ?? Unchanged gabapentin (gabapentin 100 mg oral capsule) 1 Capsules Oral (given by mouth) 3 times a day Unchanged hydroxychloroquine (hydroxychloroquine 200 mg oral tablet) Oral (given by mouth) 200 Unknown, 1 Refill(s), Take 200 mg by mouth Twice daily. ?? Unchanged hydroxychloroquine (Plaquenil 200 mg oral tablet) 2 Refill(s), TAKE 1 TABLET TWICE A DAY (EYE EXAM AT LEAST ONCE A YEAR WHILE ON THIS MEDICATION) ?? Unchanged hyoscyamine (hyoscyamine 0.125 mg sublingual tablet) 120 EA, PLACE ONE TABLET UNDER THE TONGUE EVERY 4 HOURS NEEDED FOR CRAMPING BEFORE MEALS AND BEDTIME ?? Unchanged ibuprofen (ibuprofen 800 mg oral tablet) 1 tab Oral (given by mouth) Every 8 hours as needed for as needed for pain Back pain with right-sided sciatica Unchanged insulin glargine (Lantus Solostar Pen 100 units/ mL subcutaneous solution) See instructions inject 30 units daily ?? Unchanged insulin lispro 1 Refill(s), Humalog Kwikpen. Inject 14-26 Units into the skin 3 times daily with meals ?? Unchanged insulin lispro (HumaLOG 100 units/ mL injectable solution) See instructions per patient sliding scale ?? Unchanged insulin lispro (insulin lispro 100 units/ mL injectable solution) 4 Refill(s), Humalog Kwikpen. Inject 14-26 Units into the skin 3 times daily with meals ?? Unchanged insulin pen needles 32G 4 mm See instructions 1 Refill(s), USE 5 PEN NEEDLES DIRECTED DAILY ?? Unchanged lidocaine topical (lidocaine 2% mucous membrane solution) 2 Refill(s), make magic mouthwash mix with generic benadryl liquid 100ml and maalox 1:1:1 15ml of mixed solution swish and spit 4x/ day ?? Unchanged lisinopril (lisinopril 20 mg oral tablet) 1 tab Oral (given by mouth) Every day Type II diabetes mellitus uncontrolled Sleep apnea Chronic kidney disease stage 3A Fibromyalgia Unchanged meclizine (meclizine 25 mg oral tablet) Oral (given by mouth) 2 times a day 25 Unknown, 1 Refill(s), Take 25 mg by mouth 3 times daily as needed. ?? Unchanged memantine (memantine 5 mg oral tablet) 1 Refill(s), Waiting until procedure is done ?? Unchanged mepolizumab (Nucala Prefilled Autoinjector 100 mg/ mL subcutaneous solution) 1 unknown unit ?? Unchanged omeprazole (omeprazole 40 mg oral delayed release capsule) 1 Capsules Oral (given by mouth) 2 times a day Unchanged omeprazole (omeprazole 40 mg oral delayed release capsule) Oral (given by mouth) 40 Unknown, 1 Refill(s), Take 40 mg by mouth 2 times daily. ?? Unchanged Other Prescription (PLAQUENIL 200 MG TABLET) Unchanged QUEtiapine (SEROquel 25 mg oral tablet) 1 tab Oral (given by mouth) Every day at bedtime ?? Unchanged rizatriptan (rizatriptan 10 mg oral tablet) 1 tab Oral (given by mouth) Every day as needed for as needed for migraine headache Migraine without aura may repeat dose every 2 hours up to a maximum of 30 mg in 24 hours ?? Unchanged rOPINIRole (rOPINIRole 1 mg oral tablet) See instructions Obstructive sleep apnea syndrome Periodic limb movements of sleep take 1 PO two hours before bedtime ?? Unchanged rosuvastatin (rosuvastatin 10 mg oral [...] Type 2 diabetes mellitus without complication Unchanged traZODone (traZODone 50 mg oral tablet) 30 EA, TAKE ONE TABLET BY MOUTH AT BEDTIME ?? Unchanged triamcinolone topical (triamcinolone 0.1% topical cream) 1 Application Topical (on the skin) 2 times a day Apply a thin layer to the affected area(s) ?? Unchanged valACYclovir (valACYclovir 1 g oral tablet) 1 tab Oral (given by mouth) 3 times a day Take for 7 days ?? Unchanged venlafaxine (venlafaxine 150 mg oral tablet, extended release) 1 tab Oral (given by mouth) Every day Depressive disorder Unchanged venlafaxine (venlafaxine 75 mg oral capsule, extended release) 1 Capsules Oral (given by mouth) Every day Depressive disorder Education Materials Ear Drops, Adult You have been diagnosed with a condition that requires you to put drops of medicine into one ear orboth ears. This sheet gives you information about how to use ear drops. Your health care provider may also give you more specific instructions. Supplies needed: ? Cotton balls. ? Ear drops. How to put ear drops in your ear 1.?? Wash your hands thoroughly for 20 seconds with soap and water. If soap and water are not available,use hand semiconductor lab technician. 2.?? Make sure your ears are clean and dry. If there is any earwax or drainage at the outer part of the ear canal, wipe it out gently with a cotton-tipped swab. 3.?? Warm up the medicine by holding it in your hand for a few minutes. 4.?? Gently shake the bottle to mix the ear drops. 5.?? Use the dropper to draw up the ear drops. 6.?? Hold the dropper above your ear canal and put the drops in the affected ear as instructed. Do not put the dropper into your ear at any time. It may help to pull the upper part of the ear up and back while you put the drops in. Doing this will straighten out the ear canal so the medicine can get into the canal more easily. 7.?? To make sure your ear soaks up the ear drops, do either of these things: ? Lie down with the affected ear facing up for 10 minutes. This will cause the drops to stay in the ear canal and fill the canal. ? Gently put a cotton ball in your ear canal. Leave enough of the cotton ball out so it can be easilyremoved. Do not push the cotton ball down into your ear with a cotton-tipped swab or other instrument. You can remove the cotton ball once the medicine has been absorbed by your ear, or after 15???30minutes have passed. 8.?? If both ears need the drops, repeat the procedure for the other ear. Your health care provider willlet you know if you need to put drops in both ears. 9.?? Wash your hands with soap and water for 20 seconds after using ear drops. If soap and water are notavailable, use hand semiconductor lab technician. Follow these instructions at home: ? Use the ear drops for as long as directed by your health care provider, even if you begin to feel better. ? Always wash your hands for 20 seconds before and after handling the ear drops. ? Keep the ear drops at room temperature. ? Do not wash out (irrigate) your ears unless instructed by your health care provider. ? Keep all follow-up visits as told by your health care provider. This is important. Contact a health care provider if: ? Your condition gets worse. ? Your pain or itching gets worse. ? You notice any unusual drainage from your ear, especially if the drainage has a bad smell. ? You have new trouble hearing. ? You develop a rash around your ear. ? You have used the ear drops for the amount of time recommended by your health care provider, but your symptoms have not improved. Get help right away if: ? You experience a form of dizziness in which you feel as if the room is spinning and you feel like you might vomit (vertigo). ? The outside of your ear becomes red or swollen. ? You develop a severe headache with or without neck stiffness. Summary ? Ear drops are a medicine that is placed in the ear. ? Put drops in the affected ear as told by your health care provider. ? Use the ear drops for as long as directed by your health care provider, even if you begin to feel better. ? Keep all follow-up visits as told by your health care provider. This is important. This information is not intended to replace advice given to you by your health care provider. Make sure you discuss any questions you have with your health care provider. Document Revised: 11/22/2020 Document Reviewed: 07/26/2020 Elsevier Patient Education ?? 2021 [employer] Patient/Ehs Manager Signature Patient Name:FRANK BHATTARMEN Lee I have received this information and my questions have been answered. Patient/Ehs Manager Name: Patient/Ehs Manager Signature: Relationship to Patient: Witness Name/Signature: Date: Electronically Signed on: 01/01/2023 04:42 EDTSigned by:[facility] Emergency department Note * Dana Ramirez: PERFORM Event Display: ED Notes Authored Date: [id number] Patient Care team information Care Team Personnel Name: Leroy Case MD Position: Physician Member Role: Informed Provider Address: Address: [address] [address]- [place] Name: Jhonatan Paris MD Position: Physician Member Role: ED Physician Address: Address: [facility] [address] [place] [address]- Name: Maureen Baig RN Position: Nurse Member Role: ED Nurse Care Team Related Persons Name: JERED STUBBS Name: VICKIE BHATT III Address: Home [address] [place] [phone]
--- OUTSIDE RECORDS SUMMARY | 2023-11-24 02:05 | XMS_ITS | Continuity of Care Document ---
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 Name Role Phone Leroy Case Primary Care Physician [phone] Encounter [facility] Date(s): 11/14/23 - 11/14/[address] [id number] Encounter Diagnosis Toe ulcer(Discharge Diagnosis) - 11/14/23 Discharge Disposition: Home or Self Care Attending [...] Severe Active Assessment and Plan Future Appointments Immunizations [...] Comment: Unit: Unknown 3Result Comment: Unit: Unknown Health Type Technician: EverPresent Medications !-Zofran ODT 4 mg oral tablet, disintegrating 4 mg = 1 tab, Oral, every 6 hr, PRN as needed for nausea/vomiting, # 12 tab, 0 Refill(s), Pharmacy:[id number], 157.4, cm, 02/01/23 10:28:00 EDT, Height/Length Dosing, 95.7, kg, 02/01/23 10:28:00 EDT, Weight Dosing Start Date: 02/01/23 Stop Date: 02/04/23 Status: Ordered acetaminophen 650 mg oral tablet, extended release 1,300 mg = 2 tab, Oral, TID, PRN as needed for pain, not to exceed 6 tablets/da given to her by herrheumatologist., # 100 tab, 1 Refill(s), Pharmacy: [id number]58, 157.4, cm, 02/01/23 10:28:00 EDT, Height/Length Dosing, 95.7, kg, 02/01/23 10:28:00 EDT, Weight Dosing Start Date: 05/20/23 Status: Ordered albuterol 2.5 mg/3 mL (0.083%) inhalation solution 2.5 mg = 3 mL, NEB, TID, PRN as needed for wheezing, # 810 mL, 4 Refill(s), Pharmacy: [id number]58, 157, cm, 10/04/22 11:31:00 EST, Height/Length [...] sites, # 2 mL, 3 Refill(s), Pharmacy: [facility], 157.48, cm, 07/29/23 17:53:00 EDT, Height/Length Dosing, 90.72, kg, 07/29/23 17:53:00 EDT, Weight Dosing Start Date: 10/27/23 Status: Ordered ferrous sulfate 325 mg (65 mg elemental iron) oral delayed release tablet 325 mg = 1 tab, Oral, Daily, # 90 tab, 3 Refill(s), Pharmacy: [id number]58, 158, cm, 05/31/23 11:18:00 EDT, Height/Length Dosing, 88.45, kg, 05/31/23 11:18:00 EDT, Weight Dosing Start Date: 06/02/23 Status: Ordered FreeStyle Lite Test Strips FreeStyle Lite Test Strips, Use one strip three times daily, Supply, See instructions, # 300 EA, 4 Refill(s), Pharmacy: [facility] Start Date: 02/05/23 Status: Ordered furosemide 40 mg oral tablet 90 tab, 0 Refill(s) Start Date: 11/24/22 Status: Ordered gabapentin 100 mg oral capsule 100 mg = 1 cap, Oral, TID, # 270 cap, 3 Refill(s), Pharmacy: [facility], 158, cm, 05/31/23 11:18:00 EDT, Height/Length Dosing, 88.45, kg, 05/31/23 11:18:00 EDT, Weight Dosing Start Date: 06/02/23 Status: Ordered ibuprofen 800 mg oral tablet 800 mg = 1 tab, Oral, every 8 hr, PRN as needed for pain, # 30 tab, 0 Refill(s), Pharmacy: [id number], 157.4, cm, 02/01/23 10:28:00 EDT, Height/Length [...] QID, # 4 g, 0 Refill(s), Pharmacy: [id number], 157.4, cm, 02/01/23 10:28:00 EDT, Height/Length [...] 4x/day, # 100 mL, 2 Refill(s), Pharmacy: [id number], 157.4, cm, 02/01/23 10:28:00 EDT, Height/Length Dosing, 95.7, kg, 02/01/23 10:28:00 EDT, Weight Dosing Start Date: 04/17/23 Status: Ordered lisinopril 20 mg oral tablet 20 mg = 1 tab, Oral, Daily, # 30 tab, 4 Refill(s), Pharmacy: [id number], 157, cm, 10/04/22 11:31:00 EST, Height/Length Dosing, 98, kg, 10/04/22 11:31:00 EST, Weight Dosing Start Date: 11/27/22 Status: Ordered Neupro 2 mg/24 hr transdermal film, extended release 1 patches, Topical, Daily, # 90 patches, 3 Refill(s), Pharmacy: [facility], 158,cm, 05/31/23 11:18:00 EDT, Height/Length Dosing, 88.45, kg, 05/31/23 11:18:00 EDT, Weight Dosing Start Date: 07/16/23 Status: Ordered oxyCODONE 5 mg oral tablet 5 mg = 1 tab, Oral, every 4 hr, PRN as needed for pain, # 12 tab, 0 Refill(s), 07/25/24 1:03:00 PM CDT, Pharmacy: [id number], 154.94, cm, 07/25/23 13:45:00 EDT, Height/Length [...] wheezing, # 8.5 g, 6 Refill(s), Pharmacy: [id number], 157.4, cm, 02/01/23 10:28:00 EDT, Height/Length [...] HOURS, # 12 tab, 3 Refill(s), Pharmacy: [facility], 157.48, cm, 07/29/23 17:53:00 EDT, Height/Length [...] DAY, # 90 cap, 3 Refill(s), Pharmacy: [facility], 158, cm, 05/31/23 11:18:00 EDT, Height/Length Dosing, 88.45, kg, 05/31/23 11:18:00 EDT, Weight Dosing Start Date: 06/03/23 Status: Ordered venlafaxine 75 mg oral capsule, extended release 75 mg = 1 cap, Oral, Daily, # 90 cap, 3 Refill(s), Pharmacy: [facility], 158, cm, 05/31/23 11:18:00 EDT, [...] polyps, mild diverticulosis. 1st one done in [place] years ago pt reports polyps removed 3L distal fibula 4Patient reported metal in left foot and metal in back Social History Social History Type Response Tobacco Former tobacco user Tobacco Use:. Sex Female Patient Care team information Care Team Personnel Name: Leroy Case MD Position: Physician Member Role: Informed Provider Address: Address: [address] Care Team Related Persons Name: JERED STUBBS Name: VICKIE BHATT III Address: Home [address] [place] [address], [phone]
--- OUTSIDE RECORDS SUMMARY | 2023-11-24 02:05 | XMS_ITS | Continuity of Care Document ---
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 Role Phone Leroy Case Primary Care Physician [phone] Encounter [facility] Date(s): 02/01/23 - 02/01/[address] [address] Encounter Diagnosis Asthma exacerbation(Discharge Diagnosis) - 02/01/23 Gastroenteritis(Discharge Diagnosis) - 02/01/23 Discharge Disposition: Home or Self Care Attending Physician: Edmar Harper MD Admitting Physician: Edmar Harper MD Allergies, Adverse Reactions, Alerts Substance Reaction [...] Spine Lumbar w/o Contrast 11/13/22 Functional Status 02/01/23 Other exposure to Infectious Disease Non e [...] Comment: Unit: Unknown 3Result Comment: Unit: Unknown 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: [employer] Medications !-Zofran ODT 4 mg oral tablet, disintegrating 4 mg = 1 tab, Oral, every 6 hr, PRN as needed for nausea/vomiting, # 12 tab, 0 Refill(s), Pharmacy:[facility], 157.4, cm, 02/01/23 10:28:00 EDT, Height/Length Dosing, 95.7, kg, 02/01/23 10:28:00 EDT, Weight Dosing Start Date: 02/01/23 Stop Date: 02/04/23 Status: Ordered albuterol 2.5 mg/3 mL (0.083%) inhalation solution 2.5 mg = 3 mL, NEB, TID, PRN as needed for wheezing, # 810 mL, 4 Refill(s), Pharmacy: [facility], 157, cm, 10/04/22 11:31:00 EST, Height/Length Dosing, 98, kg, 10/04/22 11:31:00 EST, WeightDosing Start Date: 10/09/22 Status: Ordered aspirin 325 mg oral capsule 325 mg = 1 cap, Oral, Daily, # 30 cap, 0 Refill(s) Start Date: 03/14/22 Status: Ordered cefdinir 300 mg oral capsule 300 mg = 1 cap, Oral, every 12 hr, # 20 cap, 0 Refill(s), Pharmacy: [facility], 157, cm, 01/01/23 4:18:00 EDT, Height/Length [...] improvement., # 2 tab, 0 Refill(s), Pharmacy: [facility], 157, cm, 01/01/23 4:18:00 EDT, Height/Length Dosing, 98.8, kg, 01/01/23 4:18:00 EDT, Weight Dosing Start Date: 01/13/23 Status: Ordered Diflucan 150 mg oral tablet 150 mg = 1 tab, Oral, Once, repeat dose in 72 hours, # 2 tab, 0 Refill(s), Pharmacy: [facility], 157, cm, 10/04/22 11:31:00 EST, Height/Length Dosing, 98, kg, 10/04/22 11:31:00 EST, Weight Dosing Start Date: 12/31/22 Status: Ordered furosemide 40 mg oral tablet 90 tab, 0 Refill(s) Start Date: 11/24/22 Status: Ordered gabapentin 100 mg oral capsule 100 mg = 1 cap, Oral, TID, # 90 cap, 3 Refill(s), Pharmacy: [facility], 157, cm, 10/04/2211:31:00 EST, Height/Length Dosing, [...] pain, # 30 tab, 0 Refill(s), Pharmacy: [facility], 157.48, cm, 05/13/22 10:43:00 EDT, Height/Length [...] Daily, # 30 tab, 4 Refill(s), Pharmacy: [facility], 157, cm, 10/04/22 11:31:00 EST, Height/Length [...] week, rotate injection sites, # 4 EA, 0 Refill(s) Start Date: 02/01/23 Status: Ordered Nucala Prefilled Autoinjector 100 mg/mL [...] Refill(s) Start Date: 03/13/22 Status: Ordered predniSONE 20 mg oral tablet 40 mg = 2 tab, Oral, Daily, X 4 days, # 8 tab, 0 Refill(s), 02/05/23 12:06:00 EDT, Pharmacy: [facility], 157.4, cm, 02/01/23 10:28:00 EDT, Height/Length Dosing, 95.7, kg, 02/01/23 10:28:00 EDT, Weight Dosing Start Date: 02/01/23 Stop Date: 02/05/23 Status: Ordered ProAir HFA 90 mcg/inh inhalation aerosol 1 puffs, Inhale, every 6 hr, PRN as needed for wheezing, # 8.5 g, 1 Refill(s), Pharmacy: [facility], 157.48, cm, 05/13/22 10:43:00 EDT, Height/Length [...] hours, # 12 tab, 1 Refill(s), Pharmacy: [facility], 157, cm, 10/04/22 11:31:00 EST, Height/Length Dosing, 98, kg, 1... Start Date: 12/17/22 Status: Ordered rOPINIRole 1 mg oral tablet See Instructions, take 1 PO two hours before bedtime, # 90 tab, 1 Refill(s), Pharmacy: [facility], 157, cm, 10/04/22 11:31:00 EST, Height/Length [...] pain, # 28 tab, 0 Refill(s), Pharmacy: [facility] Start Date: 03/14/22 Status: Ordered traZODone [...] 0 Refill(s) Start Date: 02/01/23 Status: Ordered valACYclovir 1 g oral tablet 1 g = 1 tab, Oral, TID, Take for 7 days Start Date: 10/11/21 Status: Ordered venlafaxine 150 mg oral tablet, extended release 150 mg = 1 tab, Oral, Daily, # 30 tab, 0 Refill(s), Pharmacy: [facility], 157, cm, 10/04/22 11:31:00 EST, Height/Length Dosing, 98, kg, 10/04/22 11:31:00 EST, Weight Dosing Start Date: 11/14/22 Status: Ordered venlafaxine 75 mg oral capsule, extended release 75 mg = 1 cap, Oral, Daily, # 30 cap, 0 Refill(s), Pharmacy: [facility], 157, cm, 10/04/22 11:31:00 EST, Height/Length [...] polyps, mild diverticulosis. 1st one done in [place] years ago pt reports polyps removed 3L distal fibula 4Patient reported metal in left foot and metal in back Results Laboratory List Name Date Glucose POCT 02/01/23 Most recent to oldest [Reference Range]: 1 Glucose POC [74-106 mg/dL] 278 mg/dL *HI* (02/01/23 10:47 AM) Vital Signs Most recent to oldest [Reference Range]: 1 2 3 Temperature Temporal Artery [36-38 Deg C] 36.2 Deg C (02/01/23 10:23 AM) Peripheral Pulse Rate [60-100 bpm] 66 bpm (02/01/23 12:11 PM) 66 bpm (02/01/23 11:32 AM) 67 bpm (02/01/23 11:26 AM) Respiratory Rate [12-24 br/min] 16 br/min (02/01/23 11:26 AM) 16 br/min (02/01/23 10:23 AM) Blood Pressure [90-140/60-90 mmHg] 165/59mmHg *HI* (02/01/23 12:11 PM) 189/78mmHg *HI* (02/01/23 10:23 AM) Weight Dosing 95.70 kg (02/01/23 10:28 AM) Weight Estimated 95.70 kg (02/01/23 10:23 AM) Height/Length Dosing 157.400 cm (02/01/23 10:28 AM) Height/Length Estimated 157.400 cm (02/01/23 10:23 AM) Social History Social History Type Response Tobacco Former tobacco user Tobacco Use:. Sex Female Hospital Discharge Instructions Patient Education 02/01/2023 11:06:17 Viral Gastroenteritis, Adult Viral Gastroenteritis, Adult Viral gastroenteritis is also known as the stomach flu. This condition may affect your stomach, small intestine, and large intestine. It can cause sudden watery diarrhea, fever, and vomiting. This condition is caused by many different viruses. These viruses can be passed from person to person very easily (are contagious). Diarrhea and vomiting can make you feel weak and cause you to become dehydrated. You may not be able to keep fluids down. Dehydration can make you tired and thirsty, cause you to have a dry mouth, and decrease how often you urinate. It is important to replace the fluids that you lose from diarrhea and vomiting. What are the causes? Gastroenteritis is caused by many viruses, including rotavirus and norovirus. Norovirus is the mostcommon cause in adults. You can get sick after being exposed to the viruses from other people. You can also get sick by: ??? Eating food, drinking water, or touching a surface contaminated with one of these viruses. ??? Sharing utensils or other personal items with an infected person. What increases the risk? You are more likely to develop this condition if you: ??? Have a weak body defense system (immune system). ??? Live with one or more children who are younger than 2 years old. ??? Live in a detention. ??? Travel on cruise ships. What are the signs or symptoms? Symptoms of this condition start suddenly 1???3 days after exposure to a virus. Symptoms may last for a few days or for as long as a week. Common symptoms include watery diarrhea and vomiting. Other symptoms include: ??? Fever. ??? Headache. ??? Fatigue. ??? Pain in the abdomen. ??? Chills. ??? Weakness. ??? Nausea. ??? Muscle aches. ??? Loss of appetite. How is this diagnosed? This condition is diagnosed with a medical history and physical exam. You may also have a stool test to check for viruses or other infections. How is this treated? This condition typically goes away on its own. The focus of treatment is to prevent dehydration andrestore lost fluids (rehydration). This condition may be treated with: ??? An oral rehydration solution (ORS) to replace important salts and minerals (electrolytes) in your body. Take this if told by your health care provider. This is a drink that is sold at pharmacies and retail stores. ??? Medicines to help with your symptoms. ??? Probiotic supplements to reduce symptoms of diarrhea. ??? Fluids given through an IV, if dehydration is severe. Older adults and people with other diseases or a weak immune system are at higher risk for dehydration. Follow these instructions at home: Eating and drinking ??? Take an ORS as told by your health care provider. ??? Drink clear fluids in small amounts as you are able. Clear fluids include: ??? Water. ??? Ice chips. ??? Diluted fruit juice. ??? Low-calorie sports drinks. ??? Drink enough fluid to keep your urine pale yellow. ??? Eat small amounts of healthy foods every 3???4 hours as you are able. This may include whole grains, fruits, vegetables, lean meats, and yogurt. ??? Avoid fluids that contain a lot of sugar or caffeine, such as energy drinks, sports drinks, andsoda. ??? Avoid spicy or fatty foods. ??? Avoid alcohol. General instructions ??? Wash your hands often, especially after having diarrhea or vomiting. If soap and water are not available, use hand plasterer helper. ??? Make sure that all people in your household wash their hands well and often. ??? Take jvoi-ipa-vbwiwux and prescription medicines only as told by your health care provider. ??? Rest at home while you recover. ??? Watch your condition for any changes. ??? Take a warm bath to relieve any burning or pain from frequent diarrhea episodes. ??? Keep all follow-up visits as told by your health care provider. This is important. Contact a health care provider if you: ??? Cannot keep fluids down. ??? Have symptoms that get worse. ??? Have new symptoms. ??? Feel light-headed or dizzy. ??? Have muscle cramps. Get help right away if you: ??? Have chest pain. ??? Feel extremely weak or you faint. ??? See blood in your vomit. ??? Have vomit that looks like coffee grounds. ??? Have bloody or black stools or stools that look like tar. ??? Have a severe headache, a stiff neck, or both. ??? Have a rash. ??? Have severe pain, cramping, or bloating in your abdomen. ??? Have trouble breathing or you are breathing very quickly. ??? Have a fast heartbeat. ??? Have skin that feels cold and clammy. ??? Feel confused. ??? Have pain when you urinate. ??? Have signs of dehydration, such as: ??? Dark urine, very little urine, or no urine. ??? Cracked lips. ??? Dry mouth. ??? Sunken eyes. ??? Sleepiness. ??? Weakness. Summary ??? Viral gastroenteritis is also known as the stomach flu. It can cause sudden watery diarrhea, fever, and vomiting. ??? This condition can be passed from person to person very easily (is contagious). ??? Take an ORS if told by your health care provider. This is a drink that is sold at pharmacies and retail stores. ??? Wash your hands often, especially after having diarrhea or vomiting. If soap and water are not available, use hand plasterer helper. This information is not intended to replace advice given to you by your health care provider. Make sure you discuss any questions you have with your health care provider. Document Revised: 03/17/2020 Document Reviewed: 08/04/2019 [employer] Patient Education ?? 2021 [employer] 02/01/2023 11:06:09 Asthma Attack Asthma Attack Asthma attack, also called acute bronchospasm, is the sudden narrowing and tightening of the air passages, which limits the amount of oxygen that can get into the lungs. The narrowing is caused by inflammation and tightening of the muscles in the air tubes (bronchi) in the lungs. Too much mucus is also produced, which narrows the airways more. This can cause trouble breathing, loud breathing (wheezing), and coughing. The goal of treatment is to open the airways in the lungs and reduce inflammation. What are the causes? Possible causes or triggers of this condition include: ??? Animal dander, dust mites, or cockroaches. ??? Mold, pollen from trees or grass, or cold air. ??? Air pollutants such as dust, household business development analyst, aerosol sprays, strong chemicals, strong odors, and smoke of any kind. ??? Stress or strong emotions such as crying or laughing hard. ??? Exercise or activity that requires a lot of energy. ??? Substances in foods and drinks, such as dried fruits and wine, called sulfites. ??? Certain medicines or medical conditions such as: ??? Aspirin or beta-blockers. ??? Infections or inflammatory conditions, such as a flu (influenza), a cold, pneumonia, or inflammation of the nasal membranes (rhinitis). ??? Gastroesophageal reflux disease (GERD). GERD is a condition in which stomach acid backs up intoyour esophagus and spills into your trachea (windpipe), which can irritate your airways. What are the signs or symptoms? Symptoms of this condition include: ??? Wheezing. This may sound like whistling while breathing. This may only happen at night. ??? Excessive coughing. This may only happen at night. ??? Chest tightness or pain. ??? Shortness of breath. ??? Feeling like you cannot get enough air no matter how hard you breathe (air hunger). How is this diagnosed? This condition may be diagnosed based on: ??? Your medical history. ??? Your symptoms. ??? A physical exam. ??? Tests to check for other causes of your symptoms or other conditions that may have triggered your asthma attack. These tests may include: ??? A chest X-ray. ??? Blood tests. ??? Tests to assess lung function, such as breathing into a device that measures how much air you can inhale and exhale (spirometry). How is this treated? Treatment for this condition depends on the severity and cause of your asthma attack. ??? For mild attacks, you may receive medicines through a hand-held inhaler (metered dose inhaler, or MDI) or through a device that turns liquid medicine into a mist (nebulizer). These medicines include: ??? Quick relief or rescue medicines that quickly relax the airways and lungs. ??? Long-acting medicines that are used daily to prevent (control) your asthma symptoms. ??? For moderate or severe attacks, you may be treated with steroid medicines by mouth or through an IV injection at the hospital. ??? For severe attacks, you may need oxygen therapy or a breathing machine (ventilator). ??? If your asthma attack was caused by an infection from bacteria, you will be given antibiotic medicines. Follow these instructions at home: Medicines ??? Take vatb-tsj-qkdukoh and prescription medicines only as told by your health care provider. ??? Keep your medicines up-to-date. ??? Make sure you have all of your medicines available at all times. ??? If you were prescribed an antibiotic medicine, take it as told by your health care provider. Donot stop taking the antibiotic even if you start to feel better. ??? Tell your doctor if you may be to make sure your asthma medicine is safe to use duringpregnancy. Avoiding triggers ??? Keep track of things that trigger your asthma attacks. Avoid exposure to these triggers. ??? Do not use any products that contain nicotine or tobacco, such as cigarettes, e-cigarettes, andchewing tobacco. If you need help quitting, ask your health care provider. ??? When there is a lot of pollen, air pollution, or humidity, keep windows closed and use an air conditioner or go to places with air conditioning. Asthma action plan ??? Work with your health care provider to make a written plan for managing and treating your asthma attacks (asthma action plan). This plan should include: ??? A list of your asthma triggers and how to avoid them. ??? A list of symptoms that you may have during an asthma attack. ??? Information about which medicine to take, when to take the medicine and how much of the medicine to take. ??? Information to help you understand your peak flow measurements. ??? Daily actions that you can take to control your asthma symptoms. ??? Contact information for your health care providers. ??? If you have an asthma attack, act quickly. Follow the emergency steps on your written asthma action plan. This may prevent you from needing to go to the hospital. General instructions ??? Avoid excessive exercise or activity until your asthma attack goes away. Ask your health care provider what activities are safe for you and when you can return to your normal activities. ??? Stay up to date on all your vaccines, such as flu and pneumonia vaccines. ??? Drink enough fluid to keep your urine pale yellow. Staying hydrated helps keep mucus in your lungs thin so it can be coughed up easily. ??? Do not use alcohol until you have recovered. ??? Keep all follow-up visits as told by your health care provider. This is important. Asthma requires careful medical care. Contact a health care provider if: ??? You have followed your action plan for 1 hour and your peak flow reading is still at 50???79%. This is in the yellow zone, which means caution. ??? You need to use your quick reliever medicine more frequently than normal. ??? Your medicines are causing side effects, such as rash, itching, swelling, or trouble breathing. ??? Your symptoms do not improve after 48 hours. ??? You cough up mucus that is thicker than usual. ??? You have a fever. Get help right away if: ??? Your peak flow reading is less than 50% of your personal best. This is in the red zone, which means danger. ??? You have trouble breathing. ??? You develop chest pain or discomfort. ??? Your medicines no longer seem to be helping. ??? You are coughing up bloody mucus. ??? You have a fever and your symptoms suddenly get worse. ??? You have trouble swallowing. ??? You feel very tired, and breathing becomes tiring. These symptoms may represent a serious problem that is an emergency. Do not wait to see if the symptoms will go away. Get medical help right away. Call your local emergency services (911 in the [place] Do not drive yourself to the hospital. Summary ??? Asthma attacks are caused by narrowing or tightness in air passages, which causes shortness of breath, coughing, and loud breathing (wheezing). ??? Many things can trigger an asthma attack, such as allergens, weather changes, exercise, strong odors, and smoke of any kind. ??? If you have an asthma attack, act quickly. Follow the emergency steps on your written asthma action plan. ??? Get help right away if you have severe trouble breathing, chest pain, or fever, or if your homemedicines are no longer helping with your symptoms. This information is not intended to replace advice given to you by your health care provider. Make sure you discuss any questions you have with your health care provider. Document Revised: 2020 Document Reviewed: 2020 [employer] Patient Education ?? 2021 [employer]. Follow Up Care 02/01/2023 10:23:22 With:Follow up with primary care provider Address: When:1 to 2 weeks only if needed Physician Emergency department Note * Juana Burrell MD: PERFORM Event Display: ED Note Physician Authored Date: [id number] AARON BHATT :1950 Age:72 years Sex:Female Visit Date:02/01/2023 Primary Care Physician: Leroy Case MD Basic Information Time Seen: Juana Burrell MD / 02/01/2023 10:32 Chief Complaint Sick x1 week with cough, SOB, and states thrown up approx. 8 times since yesterday. History Of Present Illness: 72-year-old female past medical history of asthma, bipolar d/o, obesity, CHF, CKD, heart failure,??hyperparathyroidism,??Sjogren's, who presents to the ED c/o cough x 1 week, and n/v/d x 2 days. Pt reports dry/mucous producing cough that has been worsening in the past 2 days. She also reports some vomiting after forceful coughing but has had some nausea and vomiting outside of coughing spells as well in the past 2 days associated with 2-3 watery BMs daily in the past 2 days. No abdominal pain. Pt has been able to keep some food and fluids down. No fever. Symptoms started with nasal congestion and pt has been using Flonase with some improvement in that. Cough is associated with some SOBon strenuous activities and she can also hear some wheezing. She has been using her Albuterol inhaler and yesterday also tried a nebulizer treatment, both of which she uses on a PRN basis and normally doesn't need much. Her last Asthma exacerbation was about 2 years ago, she took steroids and symptoms improved quickly. She denies le swelling. Her sob is not worse on laying down. She also reports that her HgbA1C was very high recently. She is on insulin and has had numbers in the 200s. She just had a bagel prior to coming. She has no polyuria and no polydipsia. Physical Exam Vitals & Measurements T:??36.2?C ??(Temporal Artery)?? HR:??66??(Peripheral)?? RR:??16?? BP:??165/59?? SpO2:??100%?? HT:??157.400??cm?? WT:??95.70??kg??(Estimated)?? Pain Score:??7?? O2 Therapy:??Room air?? General: A&Ox3, Calm, no apparent distress, well developed, pleasant and cooperative ?? HEENT: Head ATNC. Eyes: ROSALBA. Extraocular Mobility: intact and symmetrical. Conjunctiva: non-injected, anicteric, no discharge. Oral Cavity: moist. Neck: no masses, no crepitus. Lymph Nodes: no cervical lymphadenopathy? Respiratory: Some wheezing at b/l bases, otherwise good air entry ?? CV: RRR, normal S1, normal S2, no murmurs, rubs or gallops ?? Abdomen : soft, non-tender, non-distended, no rebound or guarding, no hepatosplenomegaly ?? Extremities: no le swelling, warm and well-perfused, no cyanosis, capillary refill <2 seconds? Skin: no rash, no lesions, no bruising? Neuro: normal tone, normal strength in all 4 extremities, sensation intact?? Medical Decision Makin-year-old female past medical history of asthma, bipolar d/o, obesity, CHF, CKD, heart failure,??hyperparathyroidism,??Sjogren's, who presents to the ED c/o cough x 1 week, and n/v/d x 2 days. Pt is well and non toxic appearing with reassuring VS except for HTN. She is speaking in full sentences Dry cough heard during the exam ?? Thorough chart review performed ?? Pt's presentation is c/w asthma exacerbation likely in the setting of viral resp illness. She has ah/o heart failure but she has no le swelling, no sob on laying down, and does not appear to be fluid overloaded today with no immediate concern for CHF exacerbation. Pt also with some post tussive emesis but some n/v/d outside of coughing that is possibly due to gastroenteritis - very prominent in the community at the moment. Her abdominal exam is benign. She hasbeen able to keep food and fluids down. ?? Plan: Steroids, Albuterol, Zofran odt ?? Pt with improvement with prednisone and inhaler treatment in the ED. She was also given Zofran ODT and tolerated po fluids. She was d/kiki home after discussing precautions. f/u pcp 1-2 weeks prn. Allquestions answered. ?? Procedure No Qualifying Data Assessment/Plan 1.??Asthma exacerbation??J45.901 Ordered: !-Zofran ODT 4 mg oral tablet, disintegrating, 4 mg = 1 tab, Oral, every 6 hr, PRN as needed for nausea/vomiting, # 12 tab, 0 Refill(s), Pharmacy: [facility], 157.4, cm, 02/01/23 10:28:00 EDT, Height/Length Dosing, 95.7, kg, 02/01/23 10:28:00 EDT, Weight Dosing predniSONE 20 mg oral tablet, 40 mg = 2 tab, Oral, Daily, X 4 days, # 8 tab, 0 Refill(s), 02/05/23 12:06:00 EDT, Pharmacy: [facility], 157.4, cm, 02/01/23 10:28:00 EDT, Height/Length Dosing, 95.7, kg, 02/01/23 10:28:00 EDT, Weight Dosing Discharge Patient, 02/01/23 12:06:00 EDT, Constant Indicator ?? 2.??Gastroenteritis??K52.9 Ordered: !-Zofran ODT 4 mg oral tablet, disintegrating, 4 mg = 1 tab, Oral, every 6 hr, PRN as needed for nausea/vomiting, # 12 tab, 0 Refill(s), Pharmacy: [facility], 157.4, cm, 02/01/23 10:28:00 EDT, Height/Length Dosing, 95.7, kg, 02/01/23 10:28:00 EDT, Weight Dosing predniSONE 20 mg oral tablet, 40 mg = 2 tab, Oral, Daily, X 4 days, # 8 tab, 0 Refill(s), 02/05/23 12:06:00 EDT, Pharmacy: [facility], 157.4, cm, 02/01/23 10:28:00 EDT, Height/Length Dosing, 95.7, kg, 02/01/23 10:28:00 EDT, Weight Dosing Discharge Patient, 02/01/23 12:06:00 EDT, Constant Indicator ?? Orders: albuterol 90 mcg/inh aerosol inhaler, 1 inh, Inhale, Aerosol, BID RT, First Dose: 02/01/23 10:48:00EDT, STAT Patient Education Viral Gastroenteritis, Adult Asthma Attack Follow Up With When Contact Information Follow up with primary care provider Within 1 to 2 weeks, only if needed Additional Instructions: Medication Reconciliation New Prescription ondansetron (!-Zofran ODT 4 mg oral tablet, disintegrating)1 tab Oral (given by mouth) every 6 hours as needed as needed for nausea/vomiting for 3 Days. Refills: 0. ?? predniSONE (predniSONE 20 mg oral tablet)2 tab Oral (given by mouth) every day for 4 Days. Refills:0. ?? Unchanged albuterol (albuterol 2.5 mg/3 mL (0.083%) [...] Oral (given by mouth) every day. ?? cefdinir (cefdinir 300 mg oral capsule)1 Capsules Oral (given by mouth) every 12 hours for 10 Days.Refills: 0. ?? clonazePAM (clonazePAM 0.5 mg oral tablet)1 tab Oral (given by mouth) every day as needed other (see comment). Take as needed for 90 days. ?? dulaglutide (Trulicity Pen 3 mg/0.5 mL subcutaneous solution)0.5 Milliliters Subcutaneous (under the skin) every week. rotate injection sites. ?? Durable Medical Equipment for Prescription (Compression stockings)3 pair 20- 30MMHGDX:(I80.9). Refills: 0. ?? Durable Medical Equipment for Prescription (Diabetic shoes)NEEDS NEW PAIR OF DIABETIC SHOES DX: E11.9. Refills: 0. ?? fluconazole (Diflucan 150 mg oral tablet)1 tab Oral (given by mouth) once. Repeat dose in 72 hours if no improvement.. Refills: 0. ?? fluconazole (Diflucan 150 mg [...] Oral (given by mouth) every day. ?? tirzepatide (Mounjaro 2.5 mg/0.5 mL subcutaneous solution)2.5 Milligrams Subcutaneous (under the skin) every week. rotate injection sites. ?? torsemide (torsemide 20 mg oral tablet) [...] reduction (10/13/1999)???Biopsy of breast (10/13/1993)??? section (05/14/1985)???Tonsillectomy Medication Administration Given !-Zofran, 4 mg, Oral albuterol 90 mcg/inh aerosol inhaler, 1 inh, Inhale predniSONE, 40 mg, Oral Allergies Cat Hair??(Dyspnea, Other (See Comments)) clindamycin??(Diarrhoea) ALMOND??(Other) metFORMIN??(Unknown) mycophenolate mofetil??(Unknown) pilocarpine ophthalmic??(Unknown) sulfamethoxazole-trimethoprim??(Nausea) Ambien Bactrim Lortab acetaminophen-hydrocodone??(Abdominal pain) melatonin??(Hallucinations) zolpidem Social History Alcohol Current, 1-2 times per year Electronic Cigarette/Vaping Electronic Cigarette Use: Never. Substance Use Never Tobacco Former tobacco user Tobacco Use:. Family History Chronic obstructive lung disease: Father. Heart disease: Father. Myocardial infarction: Brother. Obesity: Father. Parkinsonism: Father. Lab Results Routine Chemistry?? LATEST RESULTS?? Glucose POC?? 02/01/23 10:47?? 278 ??High? Electronically Signed on 02/01/23 12:47 PM Juana Burrell MD Emergency department Discharge instructions * Juana Burrell MD: PERFORM Event Display: ED Discharge Information Authored Date: [id number] AARON BHATT :1950 Age:72 years Sex:Female Visit Date:02/01/2023 Primary Care Physician: Leroy Case MD Discharge Instructions We would like to thank you for allowing us to assist you with your healthcare needs. The following includes patient education materials and information regarding your injury/illness. Diagnosis from Today's Visit Asthma exacerbation Gastroenteritis Discharge Vitals Temperature??(Temporal Artery) 97.2 ??F (36.2 ??C) Heart Rate??(Peripheral) 66 Respiratory Rate?? 16 Blood Pressure?? 189/78?? Height?? 61.97 in (157.400 cm) Weight??(Estimated) 211.02 lb (95.70 kg) Allergies Cat Hair??(Dyspnea, Other (See Comments)) clindamycin??(Diarrhoea) ALMOND??(Other) metFORMIN??(Unknown) mycophenolate mofetil??(Unknown) pilocarpine ophthalmic??(Unknown) sulfamethoxazole-trimethoprim??(Nausea) Ambien Bactrim Lortab acetaminophen-hydrocodone??(Abdominal pain) melatonin??(Hallucinations) zolpidem What to Do Next Instructions from Your Care Team Today you are found to have an asthma exacerbation.?? Please continue??prednisone??for total of 5 days. ??You were given a first dose today, take the next dose??tomorrow morning.?? Use your??nebulizer machine??every??6 hours??in the next 3 days, and your??inhaler??every??3 hours, 2 puffs.?? You were also diagnosed with gastroenteritis today.?? Please eat and drink small amounts of food and fluidsevery few hours.?? Use Zofran??tabs as needed for nausea to allow you to eat.?? Note that with the prednisone, your sugar may go up??and you may need??to adjust your insulin??with meals. ??Please??follow-up with your primary care provider for reevaluation in 1 to 2 weeks as needed.?? Return to the emergency department for any new or worsening symptoms. You Need to Schedule the Following Appointments Follow Up with??Follow up with primary care provider When:??Within 1 to 2 weeks, only if needed Upcoming Scheduled Appointments Friday 3:20 PM EDT ?? Friday 3:30 PM EDT [...] Much When Why Instructions Next Dose New ondansetron (!-Zofran ODT 4 mg oral tablet, disintegrating) 1 tab Oral (given by mouth) Every 6 hours as needed for as needed for nausea/vomiting Asthma exacerbation Gastroenteritis Duration: 3 Days Pickup at [facility] New predniSONE (predniSONE 20 mg oral tablet) 2 tab Oral (given by mouth) Every day Asthma exacerbation Gastroenteritis Duration: 4 Days Pickup at [facility] Unchanged albuterol (albuterol 2.5 mg/ 3 mL [...] Oral (given by mouth) Every day Unchanged cefdinir (cefdinir 300 mg oral capsule) 1 Capsules Oral (given by mouth) Every 12 hours Left acute otitis media Duration: 10 Days Unchanged clonazePAM (clonazePAM 0.5 mg oral tablet) 1 tab Oral (given by mouth) Every day as needed for other (see comment) Take as needed for 90 days ?? Unchanged dulaglutide (Trulicity Pen 3 mg/ 0.5 [...] mouth) Once Yeast infection of the vagina Repeat dose in 72 hours if no improvement. ?? Unchanged fluconazole (Diflucan 150 mg oral [...] Oral (given by mouth) Every day Unchanged tirzepatide (Mounjaro 2.5 mg/ 0.5 mL subcutaneous solution) 2.5 Milligrams Subcutaneous (under the skin) Every week rotate injection sites ?? Unchanged torsemide (torsemide 20 mg oral [...] mouth) Every day Depressive disorder Pharmacy Information [facility]: [address] [place], [place] [phone] [employer] Viral Gastroenteritis, Adult Viral gastroenteritis is also known as the stomach flu. This condition may affect your stomach, small intestine, and large intestine. It can cause sudden watery diarrhea, fever, and vomiting. This condition is caused by many different viruses. These viruses can be passed from person to person very easily (are contagious). Diarrhea and vomiting can make you feel weak and cause you to become dehydrated. You may not be able to keep fluids down. Dehydration can make you tired and thirsty, cause you to have a dry mouth, and decrease how often you urinate. It is important to replace the fluids that you lose from diarrhea and vomiting. What are the causes? Gastroenteritis is caused by many viruses, including rotavirus and norovirus. Norovirus is the mostcommon cause in adults. You can get sick after being exposed to the viruses from other people. You can also get sick by: ? Eating food, drinking water, or touching a surface contaminated with one of these viruses. ? Sharing utensils or other personal items with an infected person. What increases the risk? You are more likely to develop this condition if you: ? Have a weak body defense system (immune system). ? Live with one or more children who are younger than 2 years old. ? Live in a detention. ? Travel on cruise ships. What are the signs or symptoms? Symptoms of this condition start suddenly 1???3 days after exposure to a virus. Symptoms may last for a few days or for as long as a week. Common symptoms include watery diarrhea and vomiting. Other symptoms include: ? Fever. ? Headache. ? Fatigue. ? Pain in the abdomen. ? Chills. ? Weakness. ? Nausea. ? Muscle aches. ? Loss of appetite. How is this diagnosed? This condition is diagnosed with a medical history and physical exam. You may also have a stool test to check for viruses or other infections. How is this treated? This condition typically goes away on its own. The focus of treatment is to prevent dehydration andrestore lost fluids (rehydration). This condition may be treated with: ? An oral rehydration solution (ORS) to replace important salts and minerals (electrolytes) in your body. Take this if told by your health care provider. This is a drink that is sold at pharmacies and retail stores. ? Medicines to help with your symptoms. ? Probiotic supplements to reduce symptoms of diarrhea. ? Fluids given through an IV, if dehydration is severe. Older adults and people with other diseases or a weak immune system are at higher risk for dehydration. Follow these instructions at home: Eating and drinking ? Take an ORS as told by your health care provider. ? Drink clear fluids in small amounts as you are able. Clear fluids include: ? Water. ? Ice chips. ? Diluted fruit juice. ? Low-calorie sports drinks. ? Drink enough fluid to keep your urine pale yellow. ? Eat small amounts of healthy foods every 3???4 hours as you are able. This may include whole grains, fruits, vegetables, lean meats, and yogurt. ? Avoid fluids that contain a lot of sugar or caffeine, such as energy drinks, sports drinks, and soda. ? Avoid spicy or fatty foods. ? Avoid alcohol. General instructions ? Wash your hands often, especially after having diarrhea or vomiting. If soap and water are not available, use hand plasterer helper. ? Make sure that all people in your household wash their hands well and often. ? Take dsfq-sal-feidggn and prescription medicines only as told by your health care provider. ? Rest at home while you recover. ? Watch your condition for any changes. ? Take a warm bath to relieve any burning or pain from frequent diarrhea episodes. ? Keep all follow-up visits as told by your health care provider. This is important. Contact a health care provider if you: ? Cannot keep fluids down. ? Have symptoms that get worse. ? Have new symptoms. ? Feel light-headed or dizzy. ? Have muscle cramps. Get help right away if you: ? Have chest pain. ? Feel extremely weak or you faint. ? See blood in your vomit. ? Have vomit that looks like coffee grounds. ? Have bloody or black stools or stools that look like tar. ? Have a severe headache, a stiff neck, or both. ? Have a rash. ? Have severe pain, cramping, or bloating in your abdomen. ? Have trouble breathing or you are breathing very quickly. ? Have a fast heartbeat. ? Have skin that feels cold and clammy. ? Feel confused. ? Have pain when you urinate. ? Have signs of dehydration, such as: ? Dark urine, very little urine, or no urine. ? Cracked lips. ? Dry mouth. ? Sunken eyes. ? Sleepiness. ? Weakness. Summary ? Viral gastroenteritis is also known as the stomach flu. It can cause sudden watery diarrhea, fever,and vomiting. ? This condition can be passed from person to person very easily (is contagious). ? Take an ORS if told by your health care provider. This is a drink that is sold at pharmacies and retail stores. ? Wash your hands often, especially after having diarrhea or vomiting. If soap and water are not available, use hand plasterer helper. This information is not intended to replace advice given to you by your health care provider. Make sure you discuss any questions you have with your health care provider. Document Revised: 03/17/2020 Document Reviewed: 08/04/2019 [employer] Patient Education ?? 2021 [employer]. Asthma Attack Asthma attack, also called acute bronchospasm, is the sudden narrowing and tightening of the air passages, which limits the amount of oxygen that can get into the lungs. The narrowing is caused by inflammation and tightening of the muscles in the air tubes (bronchi) in the lungs. Too much mucus is also produced, which narrows the airways more. This can cause trouble breathing, loud breathing (wheezing), and coughing. The goal of treatment is to open the airways in the lungs and reduce inflammation. What are the causes? Possible causes or triggers of this condition include: ? Animal dander, dust mites, or cockroaches. ? Mold, pollen from trees or grass, or cold air. ? Air pollutants such as dust, household business development analyst, aerosol sprays, strong chemicals, strong odors, and smoke of any kind. ? Stress or strong emotions such as crying or laughing hard. ? Exercise or activity that requires a lot of energy. ? Substances in foods and drinks, such as dried fruits and wine, called sulfites. ? Certain medicines or medical conditions such as: ? Aspirin or beta-blockers. ? Infections or inflammatory conditions, such as a flu (influenza), a cold, pneumonia, or inflammation of the nasal membranes (rhinitis). ? Gastroesophageal reflux disease (GERD). GERD is a condition in which stomach acid backs up into your esophagus and spills into your trachea (windpipe), which can irritate your airways. What are the signs or symptoms? Symptoms of this condition include: ? Wheezing. This may sound like whistling while breathing. This may only happen at night. ? Excessive coughing. This may only happen at night. ? Chest tightness or pain. ? Shortness of breath. ? Feeling like you cannot get enough air no matter how hard you breathe (air hunger). How is this diagnosed? This condition may be diagnosed based on: ? Your medical history. ? Your symptoms. ? A physical exam. ? Tests to check for other causes of your symptoms or other conditions that may have triggered your asthma attack. These tests may include: ? A chest X-ray. ? Blood tests. ? Tests to assess lung function, such as breathing into a device that measures how much air you can inhale and exhale (spirometry). How is this treated? Treatment for this condition depends on the severity and cause of your asthma attack. ? For mild attacks, you may receive medicines through a hand-held inhaler (metered dose inhaler, or MDI) or through a device that turns liquid medicine into a mist (nebulizer). These medicines include: ? Quick relief or rescue medicines that quickly relax the airways and lungs. ? Long-acting medicines that are used daily to prevent (control) your asthma symptoms. ? For moderate or severe attacks, you may be treated with steroid medicines by mouth or through an IVinjection at the hospital. ? For severe attacks, you may need oxygen therapy or a breathing machine (ventilator). ? If your asthma attack was caused by an infection from bacteria, you will be given antibiotic medicines. Follow these instructions at home: Medicines ? Take iswd-qkk-lxfsebk and prescription medicines only as told by your health care provider. ? Keep your medicines up-to-date. ? Make sure you have all of your medicines available at all times. ? If you were prescribed an antibiotic medicine, take it as told by your health care provider. Do notstop taking the antibiotic even if you start to feel better. ? Tell your doctor if you may be to make sure your asthma medicine is safe to use during . Avoiding triggers ? Keep track of things that trigger your asthma attacks. Avoid exposure to these triggers. ? Do not use any products that contain nicotine or tobacco, such as cigarettes, e- cigarettes, and chewing tobacco. If you need help quitting, ask your health care provider. ? When there is a lot of pollen, air pollution, or humidity, keep windows closed and use an air conditioner or go to places with air conditioning. Asthma action plan ? Work with your health care provider to make a written plan for managing and treating your asthma attacks (asthma action plan). This plan should include: ? A list of your asthma triggers and how to avoid them. ? A list of symptoms that you may have during an asthma attack. ? Information about which medicine to take, when to take the medicine and how much of the medicine totake. ? Information to help you understand your peak flow measurements. ? Daily actions that you can take to control your asthma symptoms. ? Contact information for your health care providers. ? If you have an asthma attack, act quickly. Follow the emergency steps on your written asthma actionplan. This may prevent you from needing to go to the hospital. General instructions ? Avoid excessive exercise or activity until your asthma attack goes away. Ask your health care provider what activities are safe for you and when you can return to your normal activities. ? Stay up to date on all your vaccines, such as flu and pneumonia vaccines. ? Drink enough fluid to keep your urine pale yellow. Staying hydrated helps keep mucus in your lungs thin so it can be coughed up easily. ? Do not use alcohol until you have recovered. ? Keep all follow-up visits as told by your health care provider. This is important. Asthma requires careful medical care. Contact a health care provider if: ? You have followed your action plan for 1 hour and your peak flow reading is still at 50???79%. Thisis in the yellow zone, which means caution. ? You need to use your quick reliever medicine more frequently than normal. ? Your medicines are causing side effects, such as rash, itching, swelling, or trouble breathing. ? Your symptoms do not improve after 48 hours. ? You cough up mucus that is thicker than usual. ? You have a fever. Get help right away if: ? Your peak flow reading is less than 50% of your personal best. This is in the red zone, which meansdanger. ? You have trouble breathing. ? You develop chest pain or discomfort. ? Your medicines no longer seem to be helping. ? You are coughing up bloody mucus. ? You have a fever and your symptoms suddenly get worse. ? You have trouble swallowing. ? You feel very tired, and breathing becomes tiring. These symptoms may represent a serious problem that is an emergency. Do not wait to see if the symptoms will go away. Get medical help right away. Call your local emergency services (911 in the [place] Do not drive yourself to the hospital. Summary ? Asthma attacks are caused by narrowing or tightness in air passages, which causes shortness of breath, coughing, and loud breathing (wheezing). ? Many things can trigger an asthma attack, such as allergens, weather changes, exercise, strong odors, and smoke of any kind. ? If you have an asthma attack, act quickly. Follow the emergency steps on your written asthma actionplan. ? Get help right away if you have severe trouble breathing, chest pain, or fever, or if your home medicines are no longer helping with your symptoms. This information is not intended to replace advice given to you by your health care provider. Make sure you discuss any questions you have with your health care provider. Document Revised: 2020 Document Reviewed: 2020 [employer] Patient Education ?? 2021 [employer] Tests Performed Medications and Immunizations Administered Given !-Zofran, 4 mg, Oral albuterol 90 mcg/inh aerosol inhaler, 1 inh, Inhale predniSONE, 40 mg, Oral Lab Test Name Test Result Date/Time Glucose POC 278 mg/dL 02/01/2023 10:47 EDT Patient/Manager Of Data Signature Patient Name:AARON BHATT I have received this information and my questions have been answered. Patient/Manager Of Data Name: Patient/Manager Of Data Signature: Relationship to Patient: Witness Name/Signature: Date: Electronically Signed on: 02/01/2023 12:09 EDTSigned by:B Emergency department Note * Dana Ramirez: PERFORM Event Display: ED Notes Authored Date: [id number] Patient Care team information Care Team Personnel Name: Leroy Case MD Position: Physician Member Role: Informed Provider Address: Address: [address] Name: Juana Burrell MD Position: Physician Member Role: ED Physician Address: Address: [address] [place] [id number] Name: Joseluis Ellington RN Position: Nurse Member Role: ED Nurse Name: Lyndsay Castillo Position: Nurse Member Role: ED Nurse Care Team Related Persons Name: JERED STUBBS Name: VICKIE BHATT III Address: [address] [id number]
--- OUTSIDE RECORDS SUMMARY | 2023-11-24 02:05 | XMS_ITS | Continuity of Care Document ---
Author Name Unknown Organization [facility] Address [address] [place] [address] Care Team Providers Care Stunt Man Name Role Phone Leroy Case Primary Care Physician [phone] Encounter [facility] Date(s): 11/20/23 - 11/20/[address] [address] Discharge Disposition: Home or Self Care Attending [...] Active Bactrim Unknown Active Ambien Unknown Active Cat Hair Dyspnea Other (See Comments) Severe Active Lortab Unknown Active metFORMIN Unknown Moderate Active Assessment and Plan Future Appointments Immunizations [...] Comment: Unit: Unknown 3Result Comment: Unit: Unknown 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[employer] Medications !-Zofran ODT 4 mg oral tablet, disintegrating 4 mg = 1 tab, Oral, every 6 hr, PRN as needed for nausea/vomiting, # 12 tab, 0 Refill(s), Pharmacy:[facility], 157.4, cm, 02/01/23 10:28:00 EDT, Height/Length Dosing, 95.7, kg, 02/01/23 10:28:00 EDT, Weight Dosing Start Date: 02/01/23 Stop Date: 02/04/23 Status: Ordered acetaminophen 650 mg oral tablet, extended release 1,300 mg = 2 tab, Oral, TID, PRN as needed for pain, not to exceed 6 tablets/da given to her by herrheumatologist., # 100 tab, 1 Refill(s), Pharmacy: [facility], 157.4, cm, 02/01/23 10:28:00 EDT, Height/Length Dosing, 95.7, kg, 02/01/23 10:28:00 EDT, Weight Dosing Start Date: 05/20/23 Status: Ordered albuterol 2.5 mg/3 mL (0.083%) inhalation solution 2.5 mg = 3 mL, NEB, TID, PRN as needed for wheezing, # 810 mL, 4 Refill(s), Pharmacy: [facility], 157, cm, 10/04/22 11:31:00 EST, Height/Length [...] sites, # 2 mL, 3 Refill(s), Pharmacy: [facility], 157.48, cm, 07/29/23 17:53:00 EDT, Height/Length Dosing, 90.72, kg, 07/29/23 17:53:00 EDT, Weight Dosing Start Date: 10/27/23 Status: Ordered ferrous sulfate 325 mg (65 mg elemental iron) oral delayed release tablet 325 mg = 1 tab, Oral, Daily, # 90 tab, 3 Refill(s), Pharmacy: [facility], 158, cm, 05/31/23 11:18:00 EDT, Height/Length Dosing, 88.45, kg, 05/31/23 11:18:00 EDT, Weight Dosing Start Date: 06/02/23 Status: Ordered FreeStyle Lite Test Strips FreeStyle Lite Test Strips, Use one strip three times daily, Supply, See instructions, # 300 EA, 4 Refill(s), Pharmacy: [facility] Start Date: 02/05/23 Status: Ordered furosemide 40 mg oral tablet 90 tab, 0 Refill(s) Start Date: 11/24/22 Status: Ordered gabapentin 100 mg oral capsule 100 mg = 1 cap, Oral, TID, # 270 cap, 3 Refill(s), Pharmacy: [facility], 158, cm, 05/31/23 11:18:00 EDT, Height/Length Dosing, 88.45, kg, 05/31/23 11:18:00 EDT, Weight Dosing Start Date: 06/02/23 Status: Ordered ibuprofen 800 mg oral tablet 800 mg = 1 tab, Oral, every 8 hr, PRN as needed for pain, # 30 tab, 0 Refill(s), Pharmacy: [facility], 157.4, cm, 02/01/23 10:28:00 EDT, Height/Length [...] QID, # 4 g, 0 Refill(s), Pharmacy: [facility], 157.4, cm, 02/01/23 10:28:00 EDT, Height/Length [...] 4x/day, # 100 mL, 2 Refill(s), Pharmacy: [facility], 157.4, cm, 02/01/23 10:28:00 EDT, Height/Length Dosing, 95.7, kg, 02/01/23 10:28:00 EDT, Weight Dosing Start Date: 04/17/23 Status: Ordered lisinopril 20 mg oral tablet 20 mg = 1 tab, Oral, Daily, # 30 tab, 4 Refill(s), Pharmacy: [facility], 157, cm, 10/04/22 11:31:00 EST, Height/Length Dosing, 98, kg, 10/04/22 11:31:00 EST, Weight Dosing Start Date: 11/27/22 Status: Ordered Neupro 3 mg/24 hr transdermal film, extended release 1 patches, Transdermal, Daily, # 90 patches, 1 Refill(s), Pharmacy: [facility], 157.48, cm, 07/29/23 17:53:00 EDT, Height/Length Dosing, 96.9, kg, 11/14/23 15:22:00 EST, Weight Dosing Start Date: 11/19/23 Status: Ordered oxyCODONE 5 mg oral tablet 5 mg = 1 tab, Oral, every 4 hr, PRN as needed for pain, # 12 tab, 0 Refill(s), 07/25/24 1:03:00 PM CDT, Pharmacy: [facility], 154.94, cm, 07/25/23 13:45:00 EDT, Height/Length [...] wheezing, # 8.5 g, 6 Refill(s), Pharmacy: [facility], 157.4, cm, 02/01/23 10:28:00 EDT, Height/Length [...] HOURS, # 12 tab, 3 Refill(s), Pharmacy: [facility], 157.48, cm, 07/29/23 17:53:00 EDT, Height/Length [...] DAY, # 90 cap, 3 Refill(s), Pharmacy: [facility], 158, cm, 05/31/23 11:18:00 EDT, Height/Length Dosing, 88.45, kg, 05/31/23 11:18:00 EDT, Weight Dosing Start Date: 06/03/23 Status: Ordered venlafaxine 75 mg oral capsule, extended release 75 mg = 1 cap, Oral, Daily, # 90 cap, 3 Refill(s), Pharmacy: [facility], 158, cm, 05/31/23 11:18:00 EDT, [...] polyps, mild diverticulosis. 1st one done in [place] years ago pt reports polyps removed 3L distal fibula 4Patient reported metal in left foot and metal in back Results Laboratory List Name Date CBC w/ Diff 11/20/23 Microalbumin/Creatinine Ratio Urine Renal Function Panel 11/20/23 Urinalysis Microscopic 11/20/23 Urinalysis with Microscopic 11/20/23 Automated Diff 11/20/23 Most recent to oldest [Reference Range]: 1 WBC [5.0-10.0 x10^3/mcL] 7.3 x10^3/mcL (11/20/23 1:05 PM) RBC [4.1-5.3 x10^6/mcL] 4.7 x10^6/mcL (11/20/23 1:05 PM) Neutro Auto [40.0-75.0 %] 49.4 % (11/20/23 1:05 PM) Lymph Auto [20.0-50.0 %] 38.6 % (11/20/23 1:05 PM) Todd Auto [2.0-15.0 %] 6.4 % (11/20/23 1:05 PM) Basophil Auto [0.0-1.0 %] 1.1 % *HI* (11/20/23 1:05 PM) BUN [7-18 mg/dL] 32 mg/dL *HI* (11/20/23 1:05 PM) UA Color Yellow (11/20/23 1:05 PM) UA WBC [0-3] 3-5 *ABN* (11/20/23 1:05 PM) Glucose Level [74-106 mg/dL] 130 mg/dL *HI* (11/20/23 1:05 PM) Potassium Level [3.5-5.1 mmol/L] 4.1 mmo l/L (11/20/23 1:05 PM) MCV [80.0-96.0 fL] 81.7 fL (11/20/23 1:05 PM) UA Urobilinogen Normal (11/20/23 1:05 PM) UA Bili [Negative] Negative (11/20/23 1:05 PM) UA Ketones Negative (11/20/23 1:05 PM) MCHC [31.0-35.0 g/dL] 31.0 g/dL (11/20/23 1:05 PM) Sodium Level [136-145 mmol/L] 134 mmol/L *LOW* (11/20/23 1:05 PM) UA RBC [0-2] 0-2 (11/20/23 1:05 PM) UA Leuk Est Negative (11/20/23 1:05 PM) UA Nitrite Negative (11/20/23 1:05 PM) UA Glucose [Negative] Negative (11/20/23 1:05 PM) Hct [37.0-47.0 %] 38.4 % (11/20/23 1:05 PM) UA Bacteria Few /HPF *ABN* (11/20/23 1:05 PM) Calcium Level [8.5-10.1 mg/dL] 9.2 mg/dL (11/20/23 1:05 PM) Phosphorus Level [2.6-4.7 mg/dL] 4.1 mg/ dL (11/20/23 1:05 PM) Albumin Level [3.4-5.0 g/dL] 3.3 g/dL *LOW* (11/20/23 1:05 PM) UA Protein Negative (11/20/23 1:05 PM) MCH [26.0-32.0 pg] 25.3 pg *LOW* (11/20/23 1:05 PM) Neutro Absolute 3.6 x10^3/mcL *NA* (11/20/23 1:05 PM) Hgb [12.0-16.0 g/dL] 11.9 g/dL *LOW* (11/20/23 1:05 PM) UA Blood Negative (11/20/23 1:05 PM) UA Mucous None Seen /HPF (11/20/23 1:05 PM) UA Spec Grav 1.025 *NA* (11/20/23 1:05 PM) Platelets [130-450 x10^3/mcL] 367 x10^3/ mcL (11/20/23 1:05 PM) CO2 [21-32 mmol/L] 29 mmol/L (11/20/23 1:05 PM) UA Squam Epithelial [None Seen] Many *ABN* (11/20/23 1:05 PM) UA pH 5.5 *NA* (11/20/23 1:05 PM) eGFR Non-AA [>=60] 63 (11/20/23 1:05 PM) eGFR AA [>=60] 63 (11/20/23 1:05 PM) UA Appear Clear (11/20/23 1:05 PM) U Creatinine 88 mg/dL *NA* (11/20/23 1:05 PM) Chloride Level [98-107 mmol/L] 99 mmol/L (11/20/23 1:05 PM) RDW-CV [11.5-14.5 %] 14.3 % (11/20/23 1:05 PM) U Microalb/Creat [0.0-30.0 mcg/mg] 42.7 mcg/mg *HI* (11/20/23 1:05 PM) U Microalb [0.0-20.0] 37.6 *HI* (11/20/23 1:05 PM) Imm Gran Auto [0.0-0.9 %] 0.3 % (11/20/23 1:05 PM) UA Culture Ind?. Not Applicable (11/20/23 1:05 PM) Creatinine Level [0.55-1.02 mg/dL] 0.96 mg/dL (11/20/23 1:05 PM) Eos, Auto [1.0-6.0 %] 4.2 % (11/20/23 1:05 PM) Social History Social History Type Response Tobacco Former tobacco user Tobacco Use:. Sex Female Patient Care team information Care Team Personnel Name: Lippmann, Reed MD Position: Physician Member Role: Informed Provider Address: Address: [address] [address]- Care Team Related Persons Name: JERED STUBBS Name: VICKIE BHATT III Address: Home [address] [facility], [phone]
--- NOTE | 2023-11-24 13:29 | DI.RAD_ITS ---
Exam(s) XR FOOT RT COMPLETE EXAM: XR FOOT RT COMPLETE CLINICAL HISTORY: right foot pain,M79.671. TECHNIQUE: 2D digital imaging was performed. Three views. COMPARISON: CR XR FOOT COMPLETE MIN 3V RT from 08/14/2020 FINDINGS: BONES: No acute fracture is present. No bony destructive lesion is seen. Ossicles adjacent to navicu lar. Plantar calcaneal spur. JOINTS: No dislocation present. Degenerative changes greatest at tarsal metatarsal joints. SOFT TISSUE: Vascular calcifications. IMPRESSION: Degenerative changes and heel spur. DATA REPOSITORY: RADIATION DOSE DELIVERED:
== END ==
PROVIDERS: PCP Family Medicine; Visit Provider Podiatrist
DX: M79.671 Pain in right foot (principal)
CPT/HCPCS: 97597; 73630

== ENCOUNTER → 2023-12-12 08:15 | Outpatient (BNVA) | payer MEDICARE, OTHER, SELFPAY | PROVIDERS: PCP Family Medicine; Referring Provider Family Medicine | DX: M17.11 Unilateral primary osteoarthritis, right knee (principal) | CPT/HCPCS: 20610; J7325 ==

== ENCOUNTER → 2024-02-12 09:39 | Outpatient (BNVA) | payer MEDICARE, OTHER, SELFPAY | PROVIDERS: PCP Family Medicine; Referring Provider Family Medicine; Visit Provider Student in an Organized Health Care Education/Training Program | DX: M17.12 Unilateral primary osteoarthritis, left knee (principal); M17.11 Unilateral primary osteoarthritis, right knee | CPT/HCPCS: 20610; J7318 ==

== ENCOUNTER 2024-04-09 01:09 | Outpatient (RCR) | payer MEDICARE, OTHER, SELFPAY ==
--- OUTSIDE RECORDS SUMMARY | 2024-04-02 01:11 | XMS_ITS | Continuity of Care Document ---
Author Name Unknown Organization [facility] Address [address] [place] [address] Care Team Providers Care Application Administrator Name Role Phone Leroy Case Primary Care Physician Encounter [facility] Date(s): 03/25/24 - 03/25/[address] [address] Discharge Disposition: Home or Self Care Attending Physician: Leroy Case MD Admitting Physician: Leroy Case MD Referring Physician: Leroy Case MD Allergies, Adverse Reactions, Alerts Substance Reaction Severity Status ALMOND Other Moderate Active sulfamethoxazole-trimethoprim Nausea Moderate Active pilocarpine ophthalmic Unknown Moderate Activ e acetaminophen-hydrocodone Abdominal pain Unknown Active melatonin Hallucinations Unknown Active clindamycin Diarrhoea Severe Active zolpidem Unknown Active mycophenolate mofetil Unknown Moderate Active Bactrim Unknown Active Ambien Unknown Active Lortab Unknown Active Cat Hair Dyspnea Other (See Comments) Severe Active metFORMIN Unknown Moderate Active Assessment and [...] Comment: Unit: Unknown 3Result Comment: Unit: Unknown 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[id number] 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 !-Zofran ODT 4 mg oral tablet, disintegrating 4 mg = 1 tab, Oral, every 6 hr, PRN as needed for nausea/vomiting, # 12 tab, 0 Refill(s), Pharmacy:[facility], 157.4, cm, 02/01/23 10:28:00 EDT, Height/Length Dosing, 95.7, kg, 02/01/23 10:28:00 EDT, Weight Dosing Start Date: 02/01/23 Stop Date: 02/04/23 Status: Ordered acetaminophen 650 mg oral tablet, extended release 1,300 mg = 2 tab, Oral, TID, PRN as needed for pain, not to exceed 6 tablets/da given to her by herrheumatologist., # 100 tab, 1 Refill(s), Pharmacy: [facility], 157.4, cm, 02/01/23 10:28:00 EDT, Height/Length Dosing, 95.7, kg, 02/01/23 10:28:00 EDT, Weight Dosing Start Date: 05/20/23 Status: Ordered albuterol 2.5 mg/3 mL (0.083%) inhalation solution 2.5 mg = 3 mL, NEB, TID, PRN as needed for wheezing, # 810 mL, 4 Refill(s), Pharmacy: [facility], 157, cm, 10/04/22 11:31:00 EST, Height/Length [...] sites, # 2 mL, 3 Refill(s), Pharmacy: [facility], 157.48, cm, 07/29/23 17:53:00 EDT, Height/Length Dosing, 90.72, kg, 07/29/23 17:53:00 EDT, Weight Dosing Start Date: 10/27/23 Status: Ordered ferrous sulfate 325 mg (65 mg elemental iron) oral delayed release tablet 325 mg = 1 tab, Oral, Daily, # 90 tab, 3 Refill(s), Pharmacy: [facility], 158, cm, 05/31/23 11:18:00 EDT, Height/Length Dosing, 88.45, kg, 05/31/23 11:18:00 EDT, Weight Dosing Start Date: 06/02/23 Status: Ordered FreeStyle Lite Test Strips FreeStyle Lite Test Strips, Use one strip three times daily, Supply, See instructions, # 300 EA, 4 Refill(s), Pharmacy: [facility] Start Date: 02/05/23 Status: Ordered furosemide 40 mg oral tablet 90 tab, 0 Refill(s) Start Date: 11/24/22 Status: Ordered gabapentin 100 mg oral capsule 100 mg = 1 cap, Oral, TID, # 270 cap, 3 Refill(s), Pharmacy: [facility], 158, cm, 05/31/23 11:18:00 EDT, Height/Length Dosing, 88.45, kg, 05/31/23 11:18:00 EDT, Weight Dosing Start Date: 06/02/23 Status: Ordered HumaLOG 0 Refill(s) Start Date: 02/09/24 Status: Ordered ibuprofen 800 mg oral tablet 800 mg = 1 tab, Oral, every 8 hr, PRN as needed for pain, # 30 tab, 0 Refill(s), Pharmacy: [facility], 157.4, cm, 02/01/23 10:28:00 EDT, Height/Length [...] QID, # 4 g, 0 Refill(s), Pharmacy: [facility], 157.4, cm, 02/01/23 10:28:00 EDT, Height/Length [...] 4x/day, # 100 mL, 2 Refill(s), Pharmacy: [facility], 157.4, cm, 02/01/23 10:28:00 EDT, Height/Length Dosing, 95.7, kg, 02/01/23 10:28:00 EDT, Weight Dosing Start Date: 04/17/23 Status: Ordered lisinopril 20 mg oral tablet 1 tab, Oral, Daily, # 90 tab, 3 Refill(s), Pharmacy: [facility], 154, cm, 02/09/24 15:17:00 EDT, Height, 92.99, kg, 02/09/24 15:19:00 EDT, Weight Dosing Start Date: 03/03/24 Status: Ordered Mounjaro 7.5 mg/0.5 mL subcutaneous solution 7.5 mg =, Subcutaneous, every week, rotate injection sites, # 4 EA, 0 Refill(s) Start Date: 02/09/24 Status: Ordered Neupro 3 mg/24 hr transdermal film, extended release 1 patches, Transdermal, Daily, # 90 patches, 1 Refill(s), Pharmacy: [facility], 157.48, cm, 07/29/23 17:53:00 EDT, Height/Length Dosing, 96.9, kg, 11/14/23 15:22:00 EST, Weight Dosing Start Date: 11/19/23 Status: Ordered oxyCODONE 5 mg oral tablet 5 mg = 1 tab, Oral, every 4 hr, PRN as needed for pain, # 12 tab, 0 Refill(s), 07/25/24 1:03:00 PM CDT, Pharmacy: [facility], 154.94, cm, 07/25/23 13:45:00 EDT, Height/Length [...] wheezing, # 8.5 g, 6 Refill(s), Pharmacy: [facility], 157.4, cm, 02/01/23 10:28:00 EDT, Height/Length [...] = 3 TABLETS IN 24 HOURS, # 270 tab, 3 Refill(s), Pharmacy: [facility], 154, cm, 02/09/24 15:17:00 EDT, Height, 92.99, kg, 02/09/24 15:19:00 EDT, Weight Dosing Start Date: 03/03/24 Status: Ordered torsemide 20 mg oral tablet 0 Refill(s) Start Date: 03/13/22 Status: Ordered triamcinolone 0.1% topical cream 1 yonas, Topical, BID, Apply a thin layer to the affected area(s) Start Date: 10/11/21 Status: Ordered venlafaxine 150 mg oral capsule, extended release See Instructions, TAKE ONE CAPSULE BY MOUTH EVERY DAY, # 90 cap, 3 Refill(s), Pharmacy: [facility], 158, cm, 05/31/23 11:18:00 EDT, Height/Length Dosing, 88.45, kg, 05/31/23 11:18:00 EDT, Weight Dosing Start Date: 06/03/23 Status: Ordered venlafaxine 75 mg oral capsule, extended release 75 mg = 1 cap, Oral, Daily, # 90 cap, 3 Refill(s), Pharmacy: [facility], 158, cm, 05/31/23 11:18:00 EDT, [...] sicca, 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 Sex Female Patient Care team information Care Team Personnel Name: Leroy Case MD Position: Physician Member Role: Informed Provider Address: Address: [address] Care Team Related Persons Name: VICKIE BHATT III Address: Home [address] [place] [phone]
--- OUTSIDE RECORDS SUMMARY | 2024-04-02 01:12 | XMS_ITS | Continuity of Care Document ---
Author Name Unknown Organization [facility] Address [address] [place] [address] Care Team Providers Care Geriatric Nurse Name Role Phone Leroy Case Primary Care Physician [facility] Date(s): 03/11/24 - 03/11/[address] [address] Discharge Disposition: Home or Self Care Attending Physician: Malinda Costello DO Admitting Physician: Malinda Costello DO Referring Physician: Dede Woodward MD Allergies, Adverse Reactions, Alerts Substance Reaction Severity Status ALMOND Other Moderate Active sulfamethoxazole-trimethoprim Nausea Moderate Active acetaminophen-hydrocodone Abdominal pain Unknown Active Ambien Unknown Active Lortab Unknown Active Cat Hair Dyspnea Other (See Comments) Severe Active metFORMIN Unknown Moderate Active clindamycin Diarrhoea Severe Active zolpidem Unknown Active melatonin Hallucinations Unknown Active pilocarpine ophthalmic Unknown Moderate Activ e mycophenolate mofetil Unknown Moderate Active Bactrim Unknown Active Assessment and Plan Future Appointments Diagnostic Tests Pending * Glutamic Acid Decarboxy. 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 !-Zofran ODT 4 mg oral tablet, disintegrating 4 mg = 1 tab, Oral, every 6 hr, PRN as needed for nausea/vomiting, # 12 tab, 0 Refill(s), Pharmacy:[facility], 157.4, cm, 02/01/23 10:28:00 EDT, Height/Length Dosing, 95.7, kg, 02/01/23 10:28:00 EDT, Weight Dosing Start Date: 02/01/23 Stop Date: 02/04/23 Status: Ordered acetaminophen 650 mg oral tablet, extended release 1,300 mg = 2 tab, Oral, TID, PRN as needed for pain, not to exceed 6 tablets/da given to her by herrheumatologist., # 100 tab, 1 Refill(s), Pharmacy: [facility], 157.4, cm, 02/01/23 10:28:00 EDT, Height/Length Dosing, 95.7, kg, 02/01/23 10:28:00 EDT, Weight Dosing Start Date: 05/20/23 Status: Ordered albuterol 2.5 mg/3 mL (0.083%) inhalation solution 2.5 mg = 3 mL, NEB, TID, PRN as needed for wheezing, # 810 mL, 4 Refill(s), Pharmacy: [facility], 157, cm, 10/04/22 11:31:00 EST, Height/Length [...] sites, # 2 mL, 3 Refill(s), Pharmacy: [facility], 157.48, cm, 07/29/23 17:53:00 EDT, Height/Length Dosing, 90.72, kg, 07/29/23 17:53:00 EDT, Weight Dosing Start Date: 10/27/23 Status: Ordered ferrous sulfate 325 mg (65 mg elemental iron) oral delayed release tablet 325 mg = 1 tab, Oral, Daily, # 90 tab, 3 Refill(s), Pharmacy: [facility], 158, cm, 05/31/23 11:18:00 EDT, Height/Length Dosing, 88.45, kg, 05/31/23 11:18:00 EDT, Weight Dosing Start Date: 06/02/23 Status: Ordered FreeStyle Lite Test Strips FreeStyle Lite Test Strips, Use one strip three times daily, Supply, See instructions, # 300 EA, 4 Refill(s), Pharmacy: [facility] Start Date: 02/05/23 Status: Ordered furosemide 40 mg oral tablet 90 tab, 0 Refill(s) Start Date: 11/24/22 Status: Ordered gabapentin 100 mg oral capsule 100 mg = 1 cap, Oral, TID, # 270 cap, 3 Refill(s), Pharmacy: [facility], 158, cm, 05/31/23 11:18:00 EDT, Height/Length Dosing, 88.45, kg, 05/31/23 11:18:00 EDT, Weight Dosing Start Date: 06/02/23 Status: Ordered HumaLOG 0 Refill(s) Start Date: 02/09/24 Status: Ordered ibuprofen 800 mg oral tablet 800 mg = 1 tab, Oral, every 8 hr, PRN as needed for pain, # 30 tab, 0 Refill(s), Pharmacy: [facility], 157.4, cm, 02/01/23 10:28:00 EDT, Height/Length [...] QID, # 4 g, 0 Refill(s), Pharmacy: [facility], 157.4, cm, 02/01/23 10:28:00 EDT, Height/Length [...] 4x/day, # 100 mL, 2 Refill(s), Pharmacy: [facility], 157.4, cm, 02/01/23 10:28:00 EDT, Height/Length Dosing, 95.7, kg, 02/01/23 10:28:00 EDT, Weight Dosing Start Date: 04/17/23 Status: Ordered lisinopril 20 mg oral tablet 1 tab, Oral, Daily, # 90 tab, 3 Refill(s), Pharmacy: [facility], 154, cm, 02/09/24 15:17:00 EDT, Height, 92.99, kg, 02/09/24 15:19:00 EDT, Weight Dosing Start Date: 03/03/24 Status: Ordered Mounjaro 7.5 mg/0.5 mL subcutaneous solution 7.5 mg =, Subcutaneous, every week, rotate injection sites, # 4 EA, 0 Refill(s) Start Date: 02/09/24 Status: Ordered Neupro 3 mg/24 hr transdermal film, extended release 1 patches, Transdermal, Daily, # 90 patches, 1 Refill(s), Pharmacy: [facility], 157.48, cm, 07/29/23 17:53:00 EDT, Height/Length Dosing, 96.9, kg, 11/14/23 15:22:00 EST, Weight Dosing Start Date: 11/19/23 Status: Ordered oxyCODONE 5 mg oral tablet 5 mg = 1 tab, Oral, every 4 hr, PRN as needed for pain, # 12 tab, 0 Refill(s), 07/25/24 1:03:00 PM CDT, Pharmacy: [facility], 154.94, cm, 07/25/23 13:45:00 EDT, Height/Length [...] wheezing, # 8.5 g, 6 Refill(s), Pharmacy: [facility], 157.4, cm, 02/01/23 10:28:00 EDT, Height/Length [...] HOURS, # 270 tab, 3 Refill(s), Pharmacy: [facility], 154, cm, 02/09/24 15:17:00 EDT, [...] DAY, # 90 cap, 3 Refill(s), Pharmacy: [facility], 158, cm, 05/31/23 11:18:00 EDT, Height/Length Dosing, 88.45, kg, 05/31/23 11:18:00 EDT, Weight Dosing Start Date: 06/03/23 Status: Ordered venlafaxine 75 mg oral capsule, extended release 75 mg = 1 cap, Oral, Daily, # 90 cap, 3 Refill(s), Pharmacy: [facility], 158, cm, 05/31/23 11:18:00 EDT, [...] polyps, mild diverticulosis. 1st one done in [place] years ago pt reports polyps removed 3L distal fibula 4Patient reported metal in left foot and metal in back Results Laboratory List Name Date .Morphology ([facility]) 03/11/24 Automated Diff 03/11/24 CBC w/ Diff 03/11/24 Microalbumin/Creatinine Ratio Urine 03/11 Renal Function Panel 03/11/24 Urinalysis Microscopic 03/11/24 Urinalysis with Microscopic 03/11/24 Most recent to oldest [Reference Range]: 1 WBC [5.0-10.0 x10^3/mcL] 6.6 x10^3/mcL (03/11/24 6:48 AM) RBC [4.1-5.3 x10^6/mcL] 4.6 x10^6/mcL (03/11/24 6:48 AM) Neutro Auto [40.0-75.0 %] 50.5 % (03/11/24 6:48 AM) Lymph Auto [20.0-50.0 %] 37.3 % (03/11/24 6:48 AM) [place] Auto [2.0-15.0 %] 5.6 % (03/11/24 6:48 AM) Basophil Auto [0.0-1.0 %] 1.1 % *HI* (03/11/24:48 AM) BUN [7-18 mg/dL] 39 mg/dL *HI* (03/11/24 6:48 AM) UA Color Yellow (03/11/24:48 AM) UA WBC [0-3] 0-3 (03/11/24 6:48 AM) Glucose Level [74-106 mg/dL] 107 mg/dL *HI* (03/11/24 6:48 AM) Potassium Level [3.5-5.1 mmol/L] 4.3 mmo l/L (03/11/24:48 AM) MCV [80.0-96.0 fL] 79.6 fL *LOW* (03/11/24 6:48 AM) UA Urobilinogen Normal (03/11/24:48 AM) UA Bili [Negative] Negative (03/11/24:48 AM) UA Ketones Negative (03/11/24:48 AM) MCHC [31.0-35.0 g/dL] 31.1 g/dL (03/11/24 6:48 AM) Sodium Level [136-145 mmol/L] 140 mmol/L (03/11/24 6:48 AM) UA RBC [0-2] 0-2 (03/11/24 6:48 AM) UA Leuk Est Negative (03/11/24:48 AM) UA Nitrite Negative (03/11/24:48 AM) UA Glucose [Negative] Negative (03/11/24:48 AM) Hct [37.0-47.0 %] 37.0 % (03/11/24 6:48 AM) Microcyte Moderate (03/11/24:48 AM) UA Bacteria Few /HPF *ABN* (03/11/24:48 AM) Rouleaux Moderate (03/11/24:48 AM) Calcium Level [8.5-10.1 mg/dL] 9.1 mg/dL (03/11/24 6:48 AM) Phosphorus Level [2.6-4.7 mg/dL] 4.2 mg/ dL (03/11/24 6:48 AM) Albumin Level [3.4-5.0 g/dL] 3.6 g/dL (03/11/24 6:48 AM) UA Protein Negative (03/11/24 6:48 AM) MCH [26.0-32.0 pg] 24.7 pg *LOW* (03/11/24 6:48 AM) Neutro Absolute 3.3 x10^3/mcL *NA* (03/11/24 6:48 AM) Hgb [12.0-16.0 g/dL] 11.5 g/dL *LOW* (03/11/24 6:48 AM) UA Blood Negative *NA* (03/11/24 6:48 AM) UA Mucous None Seen /HPF (03/11/24 6:48 AM) UA Spec Grav 1.010 *NA* (03/11/24 6:48 AM) Platelets [130-450 x10^3/mcL] 352 x10^3/ mcL (03/11/24 6:48 AM) CO2 [21-32 mmol/L] 25 mmol/L (03/11/24 6:48 AM) UA Squam Epithelial [None Seen] Rare (03/11/24 6:48 AM) Macrocyte Rare (03/11/24 6:48 AM) UA pH 6.0 *NA* (03/11/24 6:48 AM) Target Cells Rare (03/11/24 6:48 AM) eGFR Non-AA [>=60] 45 *LOW* (03/11/24 6:48 AM) eGFR AA [>=60] 45 *LOW* (03/11/24 6:48 AM) UA Appear Clear (03/11/24 6:48 AM) U Creatinine 34 mg/dL *NA* (03/11/24 6:48 AM) Chloride Level [98-107 mmol/L] 104 mmol/ L (03/11/24 6:48 AM) RDW-CV [11.5-14.5 %] 17.2 % *HI* (03/11/24 6:48 AM) U Microalb/Creat [0.0-30.0 mcg/mg] 25.6 mcg/mg (03/11/24 6:48 AM) U Microalb [0.0-20.0] 8.7 (03/11/24 6:48 AM) Imm Gran Auto [0.0-0.9 %] 0.5 % (03/11/24 6:48 AM) Slide Review Morph Only (03/11/24 6:48 AM) UA Culture Ind?. Not Applicable (03/11/24 6:48 AM) Anisocyte Moderate (03/11/24 6:48 AM) Creatinine Level [0.55-1.02 mg/dL] 1.26 mg/dL *HI* (03/11/24 6:48 AM) Eos, Auto [1.0-6.0 %] 5.0 % (03/11/24 6:48 AM) Social History Social History Type Response Tobacco Former tobacco user Tobacco Use:. Sex Female Patient Care team information Care Team Personnel Name: Leroy Case MD Position: Physician Member Role: Informed Provider Address: Address: [address] Care Team Related Persons Name: VICKIE BAHTT III Address: Home [address] [place] [phone]
--- OUTSIDE RECORDS SUMMARY | 2024-04-02 01:12 | XMS_ITS | Continuity of Care Document ---
Author Name Unknown Organization [facility] or Sleep Disorders Address [address] [place] [address] Care Team Providers Care Formulation Chemist Name Role Phone Leroy Case Primary Care Physician Encounter [facility] [id number] Date(s): 02/09/24 - 02/09/24 [facility] [address] [place] [address] Encounter Diagnosis Obstructive sleep apnea syndrome(Discharge Diagnosis) - 02/08/24 Restless legs(Discharge Diagnosis) - 02/08/24 Obstructive sleep apnea (adult) (pediatric)(Final) - Restless legs syndrome(Final) - Discharge Disposition: Home or Self Care Attending Physician: 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 NP Referring Physician: Leroy Case MD Allergies, Adverse [...] Severe Active Assessment and Plan Extracted from: Title:Clinic - Office Visit Note Author:Nakia Castañeda NP Date:02/09/24 1.??Obstructive sleep apnea syndrome??G47.33 ??ANAT diagnosed in 2012 with an AHI of 12.2/hr. She has been treated with CPAP 5-14 cm. She has reports her compliance has been down recently due to having dental work with pain/complication. There was no compliance data available for review today. She has been asked to get us her SD card at her earliest convenience. She tolerates CPAP well and feels she sleeps better with it as long as she is not having dental pain. She still has an erratice sleep schedule (likely from her BiPolar) and she is working with psychiatry on this. She has a follow-up with them in two weeks. She is advised to keep up with the routine maintenance of the machine and to clean/replace parts as needed.??As long as her cmpliance looks good I will not need to see her for a year. She is asked to call our office for any sleep related questions or concerns. I provided greater than 30 minutes in the care of this patient, more than half the time was spent in [id number] counseling. 2.??Restless legs??G25.81 ??Her reported she shakes in sleep. Titration without any parasomnias or seizure activity. There was no REM sleep but the history did not sound consistent with RBD. She did have severe PLMS with a PLMi 82.6/hr and PLM arousal index 37.2/hr. She is NOT taking gabapentin 100 mg. She is already taking clonazepam 0.5 mg QHS.??She was previously on tramadol for pain but. She does not have any caffeine or chocolate but she takes venlafaxine which may cause or worsen PLMS. She already??takes ferrous sulfate 325 mg with vit C daily. She now takes Neupro 3??mg with significant improvement in symptoms. Continue the same. 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[employer] Medications !-Zofran ODT 4 mg oral tablet, disintegrating 4 mg = 1 tab, Oral, every 6 hr, PRN as needed for nausea/vomiting, # 12 tab, 0 Refill(s), Pharmacy:[facility], 157.4, cm, 02/01/23 10:28:00 EDT, Height/Length Dosing, 95.7, kg, 02/01/23 10:28:00 EDT, Weight Dosing Start Date: 02/01/23 Stop Date: 02/04/23 Status: Ordered acetaminophen 650 mg oral tablet, extended release 1,300 mg = 2 tab, Oral, TID, PRN as needed for pain, not to exceed 6 tablets/da given to her by herrheumatologist., # 100 tab, 1 Refill(s), Pharmacy: [facility], 157.4, cm, 02/01/23 10:28:00 EDT, Height/Length Dosing, 95.7, kg, 02/01/23 10:28:00 EDT, Weight Dosing Start Date: 05/20/23 Status: Ordered albuterol 2.5 mg/3 mL (0.083%) inhalation solution 2.5 mg = 3 mL, NEB, TID, PRN as needed for wheezing, # 810 mL, 4 Refill(s), Pharmacy: [facility], 157, cm, 10/04/22 11:31:00 EST, Height/Length [...] sites, # 2 mL, 3 Refill(s), Pharmacy: [facility], 157.48, cm, 07/29/23 17:53:00 EDT, Height/Length Dosing, 90.72, kg, 07/29/23 17:53:00 EDT, Weight Dosing Start Date: 10/27/23 Status: Ordered ferrous sulfate 325 mg (65 mg elemental iron) oral delayed release tablet 325 mg = 1 tab, Oral, Daily, # 90 tab, 3 Refill(s), Pharmacy: [facility], 158, cm, 05/31/23 11:18:00 EDT, Height/Length Dosing, 88.45, kg, 05/31/23 11:18:00 EDT, Weight Dosing Start Date: 06/02/23 Status: Ordered FreeStyle Lite Test Strips FreeStyle Lite Test Strips, Use one strip three times daily, Supply, See instructions, # 300 EA, 4 Refill(s), Pharmacy: [facility] Start Date: 02/05/23 Status: [...] pain, # 30 tab, 0 Refill(s), Pharmacy: [facility], 157.4, cm, 02/01/23 10:28:00 EDT, Height/Length [...] QID, # 4 g, 0 Refill(s), Pharmacy: [facility], 157.4, cm, 02/01/23 10:28:00 EDT, Height/Length [...] 4x/day, # 100 mL, 2 Refill(s), Pharmacy: [facility], 157.4, cm, 02/01/23 10:28:00 EDT, Height/Length Dosing, 95.7, kg, 02/01/23 10:28:00 EDT, Weight Dosing Start Date: 04/17/23 Status: Ordered lisinopril 20 mg oral tablet 1 tab, Oral, Daily, # 90 tab, 3 Refill(s), Pharmacy: [facility], 157.48, cm, 07/29/23 17:53:00 EDT, Height/Length Dosing, 96.9, kg, 11/14/23 15:22:00 EST, Weight Dosing Start Date: 12/22/23 Status: Ordered Mounjaro 7.5 mg/0.5 mL subcutaneous solution 7.5 mg =, Subcutaneous, every week, rotate injection sites, # 4 EA, 0 Refill(s) Start Date: 02/09/24 Status: Ordered Neupro 3 mg/24 hr transdermal film, extended release 1 patches, Transdermal, Daily, # 90 patches, 1 Refill(s), Pharmacy: [facility], 157.48, cm, 07/29/23 17:53:00 EDT, Height/Length Dosing, 96.9, kg, 11/14/23 15:22:00 EST, Weight Dosing Start Date: 11/19/23 Status: Ordered oxyCODONE 5 mg oral tablet 5 mg = 1 tab, Oral, every 4 hr, PRN as needed for pain, # 12 tab, 0 Refill(s), 07/25/24 1:03:00 PM CDT, Pharmacy: [facility], 154.94, cm, 07/25/23 13:45:00 EDT, Height/Length [...] wheezing, # 8.5 g, 6 Refill(s), Pharmacy: [facility], 157.4, cm, 02/01/23 10:28:00 EDT, Height/Length [...] HOURS, # 12 tab, 3 Refill(s), Pharmacy: [facility], 157.48, cm, 07/29/23 17:53:00 EDT, Height/Length [...] DAY, # 90 cap, 3 Refill(s), Pharmacy: [facility], 158, cm, 05/31/23 11:18:00 EDT, Height/Length Dosing, 88.45, kg, 05/31/23 11:18:00 EDT, Weight Dosing Start Date: 06/03/23 Status: Ordered venlafaxine 75 mg oral capsule, extended release 75 mg = 1 cap, Oral, Daily, # 90 cap, 3 Refill(s), Pharmacy: [facility], 158, cm, 05/31/23 11:18:00 [...] polyps, mild diverticulosis. 1st one done in [place] years ago pt reports polyps removed 3L distal fibula 4Patient reported metal in left foot and metal in back Vital Signs Most recent to oldest [Reference Range]: 1 Weight 92.99 kg (02/09/24 3:17 PM) Weight Measured (lbs) 205.008 lb (02/09/24 3:17 PM) Weight Dosing 92.990 kg (02/09/24 3:17 PM) Height 154 cm (02/09/24 3:17 PM) Height/Length Measured (inches) 60.63 in ch (02/09/24 3:17 PM) BSA Measured 1.99 m2 (02/09/24 3:17 PM) Body Mass Index 39.21 kg/m2 (02/09/24 3:17 PM) Social History Social History Type Response Tobacco Former tobacco user Tobacco Use:. Sex Female Physician Outpatient Note * 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 [employer]: PERFORM Event Display: Office Clinic Note Physician Authored Date: [id number] AIDE BHATT :1950 Age:73 years Sex:Female Visit Date:02/09/2024 Primary Care Physician: Leroy Case MD History of Present Illness Aide Bhatt has a telehealth??visit for ANAT and RLS??follow-up. She has given consent to have a telehealth visit. Patient is at home, provider is in the office. ?? Aide was last seen by me on 01/27/20[address] Dr[address] Mcclain on [...] desaturations even at final pressure of 9 cm,sp02 frandy 82.6%, 37 minutes were spent at a saturation <88%, arousal index 45/hr, PLMi 82.6/hr,PLM arousal index 37.2/hr, EKG showed NSR. No parasomnias and no seizure activity noted. ?? Last visit she was using CPAP 5-14 cm with great compliance and reduction in AHI and taking ropinirole 1 mg for severe PLMS. ?? Aide tells me she hasn't been able to use her CPAP much recently because she had dental work doenabout two months ago and when she tried to use the CPAP the [facility] her [facility]. She is having a hard time getting het plate to fit well and it is causing sores and she is waiting to be seen again. She is putting her CPAP on most nights but she often can't make it through the night because of the discomfort. She says her sleep has been very erratic. She at times sleeps an hour and is upall night. Then she will other time sleep 13?? hours straight. She tolerates her CPAP mask and pressures well. She has no complaints with CPAP in general other than the dental pain interefering with her sleep. She feels she generally sleeps better with CPAP when she isn't having dental pain. She continues to use the Neupro 3 mg and per her this is working well and her legs are much calmer.?? She says that her psychiatrist recenetly started her on a trazodone for sleep but she can't take itbecause it makes her wired instead of tired. She will see him again in a couple of weeks to discuss further.? ESS today 03/05 Physical Exam Vitals & Measurements HT:??154??cm?? WT:??92.99??kg?? BMI:??39.21?? BSA:??1.99?? Clinic Assessment/Plan 1.??Obstructive sleep apnea syndrome??G47.33 ??ANAT diagnosed in 2012 with an AHI of 12.2/hr. She has been treated with CPAP 5-14 cm. She has reports her compliance has been down recently due to having dental work with pain/complication. There was no compliance data available for review today. She has been asked to get us her SD card at her earliest convenience. She tolerates CPAP well and feels she sleeps better with it as long as she is not having dental pain. She still has an erratice sleep schedule (likely from her BiPolar) and she is working with psychiatry on this. She has a follow-up with them in two weeks. She is advised to keep up with the routine maintenance of the machine and to clean/replace parts as needed.??As long as her cmpliance looks good I will not need to see her for a year. She is asked to call our office for anysleep related questions or concerns. I provided greater than 30 minutes in the care of this patient, more than half the time was spent in [id number] counseling. 2.??Restless legs??G25.81 ??Her reported she shakes in sleep. Titration without any parasomnias or seizure activity. There was no REM sleep but the history did not sound consistent with RBD. She did have severe PLMSwith a PLMi 82.6/hr and PLM arousal index 37.2/hr. She is NOT taking gabapentin 100 mg. She is already taking clonazepam 0.5 mg QHS.??She was previously on tramadol for pain but. She does not have any caffeine or chocolate but she takes venlafaxine which may cause or worsen PLMS. She already??takesferrous sulfate 325 mg with vit C daily. She now takes Neupro 3??mg with significant improvement insymptoms. Continue the same. Problem List/Past Medical History Ongoing Acute maxillary [...] legs Right Side Sciatica Sacroiliitis Sj??gren's syndrome Skin lesion of face Sore gums Superficial thrombophlebitis Trochanteric bursitis of [...] (10/13/1999)???Biopsy of breast (10/13/1993)??? section (05/14/1985)???Tonsillectomy Medications What How Much When Why Instructions Unchanged acetaminophen (acetaminophen 650 mg oral tablet, extended release) 2 tab Oral (given by mouth) 3 times a day as needed for as needed for pain not to exceed 6 tablets/ da given to her by her art installer. Contact prescribing physician if questions or concerns ?? Unchanged albuterol (albuterol 2.5 mg/ 3 mL (0.083%) inhalation solution) 3 Milliliters Nebulized inhalation (inhale using nebulizer) 3 times a day as needed for as needed for wheezing Asthma Contact prescribing physician if questions or concerns ?? Unchanged albuterol (ProAir HFA 90 mcg/ inh inhalation aerosol) 1 Puffs Inhale (breathe in) Every 6 hours as needed for as needed for wheezing Sinusitis Contact prescribing physician if questions or concerns ?? Unchanged albuterol (ProAir RespiClick 90 mcg/ inh inhalation powder) 1 EA, INHALE ONE PUFF BY MOUTH EVERY 6 HOURS NEEDED Contact prescribing physician if questions or concerns ?? Unchanged aspirin (aspirin 325 mg oral capsule) 1 Capsules Oral (given by mouth) Every day Contact prescribing physician if questions or concerns ?? Unchanged cholecalciferol (Vitamin D3 50,000 intl units oral capsule) 1 Capsules Oral (given by mouth) Every week Contact prescribing physician if questions or concerns ?? Unchanged clonazePAM (clonazePAM 0.5 mg oral tablet) 1 tab Oral (given by mouth) Every day as needed for other (see comment) Take as needed for 90 days Contact prescribing physician if questions or concerns ?? Unchanged cyanocobalamin (Vitamin B12 5000 mcg oral tablet, disintegrating) 1 tab Oral (given by mouth) Every day Contact prescribing physician if questions or concerns ?? Unchanged dulaglutide (dulaglutide 4.5 mg/ 0.5 mL subcutaneous solution) 0.5 Milliliters Subcutaneous (under the skin) Every week rotate injection sites Contact prescribing physician if questions or concerns ?? Unchanged Durable Medical Equipment for Prescription (Compression stockings) See instructions Phlebitis of superficial veins of lower extremity 3 pair 20-30MMHGDX:(I80.9) Contact prescribing physician if questions or concerns ?? Unchanged Durable Medical Equipment for Prescription (Diabetic shoes) See instructions Type 2 diabetes mellitus without complication NEEDS NEW PAIR OF DIABETIC SHOES DX: E11.9 Contact prescribing physician if questions or concerns ?? Unchanged Durable Medical Equipment for Prescription (FreeStyle Lite Test Strips) See instructions Type II diabetes mellitus uncontrolled Use one strip three times daily Contact prescribing physician if questions or concerns ?? Unchanged ferrous sulfate (ferrous sulfate 325 mg (65 mg elemental iron) oral delayed release tablet) 1 tab Oral (given by mouth) Every day Low iron Contact prescribing physician if questions or concerns ?? Unchanged furosemide (furosemide 40 mg oral tablet) 90 tab Contact prescribing physician if questions or concerns ?? Unchanged gabapentin (gabapentin 100 mg oral capsule) 1 Capsules Oral (given by mouth) 3 times a day Contact prescribing physician if questions or concerns ?? Unchanged hydroxychloroquine (Plaquenil 200 mg oral tablet) 2 Refill(s), TAKE 1 TABLET TWICE A DAY (EYE EXAM AT LEAST ONCE A YEAR WHILE ON THIS MEDICATION) Contact prescribing physician if questions or concerns ?? Unchanged ibuprofen (ibuprofen 800 mg oral tablet) 1 tab Oral (given by mouth) Every 8 hours as needed for as needed for pain Back pain with right-sided sciatica Contact prescribing physician if questions or concerns ?? Unchanged insulin glargine (Lantus Solostar Pen 100 units/ mL subcutaneous solution) See instructions inject 30 units daily Contact prescribing physician if questions or concerns ?? Unchanged insulin lispro (HumaLOG) Contact prescribing physician if questions or concerns ?? Unchanged insulin pen needles 32G 4 mm See instructions 1 Refill(s), USE 5 PEN NEEDLES DIRECTED DAILY Contact prescribing physician if questions or concerns ?? Unchanged ipratropium-albuterol (ipratropium-albuterol CFC free 20 mcg-100 mcg/ inh inhalation aerosol) 1 Puffs Inhale (breathe in) 4 times a day Bronchitis, acute Contact prescribing physician if questions or concerns ?? Unchanged lidocaine topical (lidocaine 2% mucous membrane solution) 5 Milliliters Topical (on the skin) 3 times a day before meals 2 Refill(s), make magic mouthwash mix with generic benadryl liquid 100ml and maalox 1:1:1 15ml of mixed solution swish and spit 4x/ day Contact prescribing physician if questions or concerns ?? Unchanged lisinopril (lisinopril 20 mg oral tablet) 1 tab Oral (given by mouth) Every day Contact prescribing physician if questions or concerns ?? Unchanged ondansetron (!-Zofran ODT 4 mg oral tablet, disintegrating) 1 tab Oral (given by mouth) Every 6 hours as needed for as needed for nausea/vomiting Asthma exacerbation Gastroenteritis Duration: 3 Days Contact prescribing physician if questions or concerns ?? Unchanged oxyCODONE (oxyCODONE 5 mg oral tablet) 1 tab Oral (given by mouth) Every 4 hours as needed for as needed for pain Shoulder injury Contact prescribing physician if questions or concerns ?? Unchanged rizatriptan (rizatriptan 10 mg oral tablet) See instructions TAKE ONE TABLET BY MOUTH AT ONSET OF HEADACHE, MAY REPEAT IN TWO HOURS IF NECESSARY, DAILY MAX = 3 TABLETS IN 24 HOURS Contact prescribing physician if questions or concerns ?? Unchanged rotigotine (Neupro 3 mg/ 24 hr transdermal film, extended release) 1 patch(es) Transdermal (apply on the skin) Every day Contact prescribing physician if questions or concerns ?? Unchanged tirzepatide (Mounjaro 7.5 mg/ 0.5 mL subcutaneous solution) 7.5 Milligrams Subcutaneous (under the skin) Every week rotate injection sites Contact prescribing physician if questions or concerns ?? Unchanged torsemide (torsemide 20 mg oral tablet) Contact prescribing physician if questions or concerns ?? Unchanged triamcinolone topical (triamcinolone 0.1% topical cream) 1 Application Topical (on the skin) 2 times a day Apply a thin layer to the affected area(s) Contact prescribing physician if questions or concerns ?? Unchanged venlafaxine (venlafaxine 150 mg oral capsule, extended release) See instructions TAKE ONE CAPSULE BY MOUTH EVERY DAY Contact prescribing physician if questions or concerns ?? Unchanged venlafaxine (venlafaxine 75 mg oral capsule, extended release) 1 Capsules Oral (given by mouth) Every day Depressive disorder Contact prescribing physician if questions or concerns ?? 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[employer] influenza virus vaccine, inactivated 06/28/2014 Recorded influenza virus vaccine, inactivated 06/29/2013 Recorded influenza virus vaccine, inactivated 10/23/2012 Recorded tetanus/diphth/pertuss (Tdap) adult/adol 01/22/2012 Recorded influenza virus vaccine, inactivated 07/16/2011 Recorded Electronically Signed on 02/09/24 03:33 PM 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 [employer] Patient Care team information Care Team Personnel Name: Leroy Case MD Position: Physician Member Role: Informed Provider Address: Address: [address] [address] [place] Care Team Related Persons Name: JERED STUBBS Name: VICKIE BHATT III Address: [address] [id number]
[2024-04-02 12:00] VITALS: BP 150/73; PULSE 82; RESP 17; TEMP 36.3; O2SAT 97
[2024-04-02] MEDS: IRON SUCROSE COMPLEX 300 MG in Normal Saline 250 ML 176.667 MG IVPB (12:00)
[2024-04-02] MEDS: Normal Saline Flush 10 ML SYR IVP (12:01)
[2024-04-02 13:40] VITALS: BP 149/70; PULSE 85; RESP 16; TEMP 36.5; O2SAT 97
[2024-04-09 11:55] VITALS: BP 117/70; PULSE 71; O2SAT 99
[2024-04-09] MEDS: IRON SUCROSE COMPLEX 300 MG in Normal Saline 250 ML 176.667 MG IVPB (12:07)
[2024-04-09] MEDS: Normal Saline Flush 10 ML SYR IVP (12:08)
== END 2024-04-11 23:59 | disposition home or self-care (01) ==
LOC: INF 01:09
PROVIDERS: PCP Family Medicine; Visit Provider Family Medicine
DX: D50.9 Iron deficiency anemia, unspecified (principal)
CPT/HCPCS: 96365; 96366; J1756

== ENCOUNTER 2024-04-16 02:29 | Outpatient (RCR) | payer MEDICARE, OTHER, SELFPAY ==
[2024-04-12 00:29] VITALS: BP 117/70; PULSE 71; RESP 16; TEMP 36.5
--- OUTSIDE RECORDS SUMMARY | 2024-04-16 02:31 | XMS_ITS | Continuity of Care Document ---
Author Name Unknown Organization [facility] Address [address] [place] [address] Care Team Providers Care Dock Operator Name Role Phone Leroy Case Primary Care Physician [phone] Encounter [facility] Date(s): 04/01/24 - 04/01/[address] [address] Discharge Disposition: Home or Self Care Attending Physician: Malinda Costello DO Admitting Physician: Malinda Costello DO Referring Physician: Malinda Costello DO Allergies, Adverse Reactions, Alerts Substance Reaction Severity [...] Pending * Glutamic Acid Decarboxy. 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: [employer] Medic[facility] !-Zofran ODT 4 mg oral tablet, disintegrating 4 mg = 1 tab, Oral, every 6 hr, PRN as needed for nausea/vomiting, # 12 tab, 0 Refill(s), Pharmacy:[facility], 157.4, cm, 02/01/23 10:28:00 EDT, Height/Length Dosing, 95.7, kg, 02/01/23 10:28:00 EDT, Weight Dosing Start Date: 02/01/23 Stop Date: 02/04/23 Status: Ordered acetaminophen 650 mg oral tablet, extended release 1,300 mg = 2 tab, Oral, TID, PRN as needed for pain, not to exceed 6 tablets/da given to her by herrheumatologist., # 100 tab, 1 Refill(s), Pharmacy: [facility], 157.4, cm, 02/01/23 10:28:00 EDT, Height/Length Dosing, 95.7, kg, 02/01/23 10:28:00 EDT, Weight Dosing Start Date: 05/20/23 Status: Ordered albuterol 2.5 mg/3 mL (0.083%) inhalation solution 2.5 mg = 3 mL, NEB, TID, PRN as needed for wheezing, # 810 mL, 4 Refill(s), Pharmacy: [facility], 157, cm, 10/04/22 11:31:00 EST, Height/Length [...] # 2 mL, 3 Refill(s), Pharmacy: [facility], 157.48, cm, 07/29/23 17:53:00 EDT, Height/Length Dosing, 90.72, kg, 07/29/23 17:53:00 EDT, Weight Dosing Start Date: 10/27/23 Status: Ordered ferrous sulfate 325 mg (65 mg elemental iron) oral delayed release tablet 325 mg = 1 tab, Oral, Daily, # 90 tab, 3 Refill(s), Pharmacy: [facility], 158, cm, 05/31/23 11:18:00 EDT, Height/Length Dosing, 88.45, kg, 05/31/23 11:18:00 EDT, Weight Dosing Start Date: 06/02/23 Status: Ordered FreeStyle Lite Test Strips FreeStyle Lite Test Strips, Use one strip three times daily, Supply, See instructions, # 300 EA, 4 Refill(s), Pharmacy: [facility] Start Date: 02/05/23 Status: Ordered furosemide 40 mg oral tablet 90 tab, 0 Refill(s) Start Date: 11/24/22 Status: Ordered gabapentin 100 mg oral capsule 100 mg = 1 cap, Oral, TID, # 270 cap, 3 Refill(s), Pharmacy: [facility], 158, cm, 05/31/23 11:18:00 EDT, Height/Length Dosing, 88.45, kg, 05/31/23 11:18:00 EDT, Weight Dosing Start Date: 06/02/23 Status: Ordered HumaLOG 0 Refill(s) Start Date: 02/09/24 Status: Ordered ibuprofen 800 mg oral tablet 800 mg = 1 tab, Oral, every 8 hr, PRN as needed for pain, # 30 tab, 0 Refill(s), Pharmacy: [facility], 157.4, cm, 02/01/23 10:28:00 EDT, Height/Length [...] QID, # 4 g, 0 Refill(s), Pharmacy: [facility], 157.4, cm, 02/01/23 10:28:00 EDT, Height/Length [...] 4x/day, # 100 mL, 2 Refill(s), Pharmacy: [facility], 157.4, cm, 02/01/23 10:28:00 EDT, Height/Length Dosing, 95.7, kg, 02/01/23 10:28:00 EDT, Weight Dosing Start Date: 04/17/23 Status: Ordered lisinopril 20 mg oral tablet 1 tab, Oral, Daily, # 90 tab, 3 Refill(s), Pharmacy: [facility], 154, cm, 02/09/24 15:17:00 EDT, Height, 92.99, kg, 02/09/24 15:19:00 EDT, Weight Dosing Start Date: 03/03/24 Status: Ordered Mounjaro 7.5 mg/0.5 mL subcutaneous solution 7.5 mg =, Subcutaneous, every week, rotate injection sites, # 4 EA, 0 Refill(s) Start Date: 02/09/24 Status: Ordered Neupro 3 mg/24 hr transdermal film, extended release 1 patches, Transdermal, Daily, # 90 patches, 1 Refill(s), Pharmacy: [facility], 157.48, cm, 07/29/23 17:53:00 EDT, Height/Length Dosing, 96.9, kg, 11/14/23 15:22:00 EST, Weight Dosing Start Date: 11/19/23 Status: Ordered oxyCODONE 5 mg oral tablet 5 mg = 1 tab, Oral, every 4 hr, PRN as needed for pain, # 12 tab, 0 Refill(s), 07/25/24 1:03:00 PM CDT, Pharmacy: [facility], 154.94, cm, 07/25/23 13:45:00 EDT, Height/Length [...] wheezing, # 8.5 g, 6 Refill(s), Pharmacy: [facility], 157.4, cm, 02/01/23 10:28:00 EDT, Height/Length [...] HOURS, # 270 tab, 3 Refill(s), Pharmacy: [facility], 154, cm, 02/09/24 15:17:00 EDT, [...] DAY, # 90 cap, 3 Refill(s), Pharmacy: [facility], 158, cm, 05/31/23 11:18:00 EDT, Height/Length Dosing, 88.45, kg, 05/31/23 11:18:00 EDT, Weight Dosing Start Date: 06/03/23 Status: Ordered venlafaxine 75 mg oral capsule, extended release 75 mg = 1 cap, Oral, Daily, # 90 cap, 3 Refill(s), Pharmacy: [facility], 158, cm, 05/31/23 11:18:00 EDT, [...] back Results Laboratory List Name Date Glucose Level 04/01/24 Most recent to oldest [Reference Range]: 1 Glucose Level [74-106 mg/dL] 134 mg/dL *HI* (04/01/24 1:11 PM) Social History Social History Type Response Tobacco Former tobacco user Tobacco Use:. Sex Female Patient Care team information Care Team Personnel Name: Leroy Case MD Position: Physician Member Role: Informed Provider Address: Address: [address] [address]- Care Team Related Persons Name: VICKIE BHATT III Address: Home [address] [facility], [id number]
[2024-04-16 12:00] VITALS: BP 106/69; PULSE 76; RESP 16; TEMP 36.3; O2SAT 100
[2024-04-16] MEDS: Normal Saline Flush 10 ML SYR IVP (12:05)
[2024-04-16] MEDS: IRON SUCROSE COMPLEX 300 MG in Normal Saline 250 ML 176.667 MG IVPB (12:05)
[2024-04-16 13:40] VITALS: BP 130/73; PULSE 67; RESP 17; TEMP 36.8; O2SAT 100
== END 2024-05-12 23:59 | disposition home or self-care (01) ==
LOC: INF 02:29
PROVIDERS: PCP Family Medicine; Visit Provider Family Medicine
DX: D50.9 Iron deficiency anemia, unspecified (principal)
CPT/HCPCS: 96365; 96366; J1756

== ENCOUNTER 2025-03-15 08:49 | Outpatient (CLI) | payer MEDICARE, OTHER, SELFPAY ==
--- NOTE | 2025-03-15 08:30 | DI.RAD_ITS ---
Exam(s) XR SHOULDER LT COMPLETE 2+V EXAM: XR SHOULDER LT COMPLETE 2+V CLINICAL HISTORY: LEFT SHOULDER PAIN. TECHNIQUE: 2D digital imaging was performed. COMPARISON: CR XR CHEST 1 VW from 01/07/2022 FINDINGS: Two views-Grashey and axial views No evidence of fracture or dislocation. Subacromial space exhibits normal height and without calcifi cations therein. On the Grashey view there are calcifications projected over the humeral head and osseous glenoid and region of the coracoid process. These are not discernible on the axial image. May represent bone is lands but recommended additional views IMPRESSION: Findings on the Grashey view as above which are not substantiated on the axial view. Recommend addit ional views. DATA REPOSITORY: RADIATION DOSE DELIVERED:
== END 2025-03-15 08:50 | disposition home or self-care (01) ==
LOC: DIORS 08:49
PROVIDERS: PCP Family Medicine; Referring Provider Family Medicine; Visit Provider Student in an Organized Health Care Education/Training Program
DX: M25.512 Pain in left shoulder (principal); M54.12 Radiculopathy, cervical region; W21.05XA Struck by basketball, initial encounter; I13.0 Hypertensive heart and chronic kidney disease with heart failure and stage 1 through stage 4 chronic kidney disease, or unspecified chronic kidney disease; E11.9 Type 2 diabetes mellitus without complications; N18.9 Chronic kidney disease, unspecified
CPT/HCPCS: 99213; 73030